=== PATIENT | male | born 1955 | race African-American/Black ===

== ENCOUNTER 2020-09-16 16:04 | Inpatient (IN) | payer BC, SELFPAY ==
--- NOTE | ~2020-09-16 | XR_ITS ---
EXAMINATION: XR foot RT min 3V DATE: 09/16/2020 19:12 INDICATION: Cellulitis with wound at the right fifth metatarsophalangeal joint. TECHNIQUE: Dorsoplantar, two oblique and lateral views of the right foot were obtained. COMPARISON: None. FINDINGS: Bone alignment is normal. No fracture. Mild to moderate osteoarthritis at the right first metatarsoph alangeal joint. Mild osteoarthritis at a few of the tarsal metatarsal and interphalangeal joints. No cortical erosions or periosteal reaction to suggest osteomyelitis. No radiopaque foreign bodies. Soft tissue swelling lateral to the fifth metatarsophalangeal joint at the site of reported cellulitis. IMPRESSION: 1. No cortical erosions to suggest osteomyelitis. 2. 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 Reviewed, dictated and finalized at [facility]. IONS CLERK IMPRESSION: 1. No cortical erosions to suggest osteomyelitis. 2. 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
--- NOTE | ~2020-09-16 | MR_ITS ---
EXAMINATION: MR foot RT wo con DATE: 09/23/2020 12:01 INDICATION: Right foot osteomyelitis. TECHNIQUE: Magnetic resonance imaging (MRI) of the right foot was performed without intravenous contr ast. Sequences included sagittal STIR FSE and T1-weighted FSE and short-axis and long-axis T1-weighte d FSE and T2-weighted FS FSE. COMPARISON: Right foot radiographs 09/16/2020 FINDINGS: There are changes of recent amputation at the base of fifth metatarsal. No fracture. There is no bone marrow edema to suggest osteomyelitis. There is mild osteoarthritis of first tarsometatars al joint and some of the interphalangeal joints. There is moderate osteoarthritis of first metatarsop halangeal joint. Lisfranc ligament is intact. There is mild fatty atrophy of much of the musculature. There is increased T2-weighted signal intensity throughout the musculature, consistent with subacute denervation. There is mild tenosynovitis of flexor digitorum longus. Dorsal subcutaneous edema is no mahsa. IMPRESSION: 1. No evidence of osteomyelitis. Reviewed, dictated and finalized at location A. BOX OPERATOR
--- NOTE | ~2020-09-16 | XR_ITS ---
EXAMINATION: XR chest PICC line DATE: 09/25/2020 14:55 INDICATION: Central line placement. TECHNIQUE: A single frontal view of the chest was obtained. COMPARISON: None. FINDINGS: There are airspace opacities in right lower lung zone. No pleural effusion or pneumothorax. The heart size is normal. A left upper extremity peripherally inserted central venous catheter (PICC ) is seen with tip at the superior cavoatrial junction. IMPRESSION: 1. PICC tip at superior cavoatrial junction. 2. Airspace opacities in right lower lung zone, consistent with pneumonia. Reviewed, dictated and finalized at location A. KER SOLES
--- NOTE | ~2020-09-16 | US_ITS ---
EXAMINATION: US arterial ankle brachial ind DATE: 09/24/2020 17:09 INDICATION: Arterial occlusive disease. TECHNIQUE: Segmental pressures and plethysmographic and Doppler waveforms of the brachial and lower e xtremity arteries were obtained. COMPARISON: None. FINDINGS: Right and left brachial artery pressures of 135 mm Hg and 146 mm Hg, respectively, are concordant (no rmal difference <= 30 mmHg). The right ankle-brachial index (LYNNE) is 1.01 (normal >= 0.9-1.0). The right great toe-brachial index (TBI) is 0.68 (normal >= 0.65). Arterial Doppler waveforms are biphasic at the ankle. The left LYNNE is 0.98. The left TBI is 0.68. Arterial Doppler waveforms are biphasic at the ankle. IMPRESSION: 1. No significant arterial occlusive disease. Reviewed, dictated and finalized at location A. IC HEALTH NURSE
[2020-09-16 16:26] VITALS: BP 137/72; PULSE 118; RESP 18; TEMP 36.6; O2SAT 98
--- NOTE | 2020-09-16 18:54 | ED.WOUNDLAC ---
HPI - Wound/Laceration General Chief Complaint: Wound/Laceration Stated Complaint: Right Foot/Ankle Wound Time Seen by Provider: 09/16/20 18:32 History of Present Illness HPI narrative: Patient is a 65-year-old male who presents ER with right foot wound. Reports he noticed a callus and skin defect to the right foot 4 days ago he began to pick at it. The next day it began to become red and swollen. He has been unable to bear weight on it due to pain. No fevers or chills or sweats. Reports increased fatigue and decreased appetite states not been eating over the last 2 to 3 days. No body aches. Denies history of diabetes but he does not have a primary care physician so he does not have any formal diagnoses. No alleviating factors other than rest. Related Data Home Medications Medication Instructions Recorded Confirmed No Home Medications 09/16/20 09/16/20 Allergies Allergy/AdvReac Type Severity Reaction Status Date / Time No Known Allergies Allergy Verified 09/16/20 16:31 Review of Systems Review of Systems: All systems reviewed & are unremarkable except as noted in HPI and below Constitutional: Constitutional: Denies chills, Denies fever(s) and Reports weakness ENT: Denies nasal congestion and Denies sore throat Cardiovascular: Cardiovascular: Denies chest pain and Denies radiating jaw, neck or arm pain Respiratory: Respiratory: Denies cough, Denies dyspnea and Denies wheezing Musculoskeletal: Musculoskeletal: Reports arthralgias Comments: Right foot swelling Integumentary/Breasts: Skin/Breast: Reports erythema PMFSH Past Medical History Medical History No significant past medical history Surgical History Surgical History No history of previous surgery Social History Social History Smoking status: Never smoker Alcohol intake: never Substance use: never Substance use type: does not use Occupation/Education: occupation 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 HEAD: Normocephalic, atraumatic. ENT: Mucous membranes moist. CHEST: Clear to auscultation. No respiratory distress. HEART: Tachycardic and regular. Normal peripheral pulses. ABDOMEN: Soft, nontender, nondistended. EXTREMITIES: Normal range of motion. Right foot with some mild edema when compared to the left. The right foot is also cellulitic and warm. There is a wound that appears to have started with a callus at the right fifth MTP plantar aspect extending over the lateral aspect. The fifth digit is also swollen. No real tenderness with palpation of the foot but has tenderness as you begin to palpate towards the ankle and leg. SKIN: Warm, dry, no rash. Cellulitis right foot. NEURO: Alert and oriented x3. PSYCH: Normal mood and affect. Course Course Emergency Course: Patient informed of results and seriousness of condition. IV antibiotics been ordered. He is received a 30 mL/kg bolus. Admit to hospitalist service. Vital Signs Vital signs: Vital Signs Temperature 97.8 F 09/16/20 16:26 Pulse Rate 118 H 09/16/20 16:26 Respiratory Rate 18 09/16/20 16:26 Blood Pressure 137/72 09/16/20 16:26 Pulse Oximetry 98 09/16/20 16:26 Temperature 98.8 F 09/16/20 23:50 Pulse Rate 102 H 09/17/20 00:00 Respiratory Rate 20 09/17/20 00:00 Blood Pressure 167/95 H 09/16/20 22:30 Pulse Oximetry 99 09/17/20 00:00 MDM - Wound/Laceration Lab Data Result diagrams: 09/16/20 18:47 09/16/20 18:47 Labs: Lab Results 09/16/20 09/16/20 09/16/20 Range/Uni
[2020-09-16 18:55] LABS: Basophils Absolute Auto 0.1 K/mm3 (0.0-0.1); Basophils Percent Auto 0.3 % (0.2-1.2); Eosinophils Percent Auto 0.1 % (0-4.4); Hematocrit 38.1 % (42.0-52.0); Hemoglobin 12.9 g/dL (14.0-18.0); Immature Granulocyte Absolute 0.28 K/mm3 (0.00-0.031); Immature Granulocyte Percent A 1.4 % (0-0.5); Lymphocytes Absolute Auto 0.74 K/mm3 (0.9-3.2); Lymphocytes Percent Auto 3.8 % (18.3-44.2); Mean Corpuscular HGB Conc 33.9 g/dl (32-36); Mean Corpuscular Hemoglobin 27.9 pg (26-34); Mean Corpuscular Volume 82.5 fl (80-100); Mean Platelet Volume 10.1 fl (7.4-10.4); Monocytes Absolute Auto 1.6 K/mm3 (0.1-0.6); Monocytes Percent Auto 8.3 % (2.6-8.5); Neutrophils Absolute Auto 16.9 K/mm3 (1.3-6.7); Neutrophils Percent Auto 86.1 % (45.5-73.1); Platelet Count Result 359 k/mm3 (150-375); Red Blood Count 4.62 M/mm3 (4.6-6.20); White Blood Count 19.6 K/mm3 (4.5-10.0)
[2020-09-16] MEDS: SODIUM CHLORIDE 0.9% IV 2,200 ML/1,000 ML BAG 999 ML IV CONT (19:10)
[2020-09-16 19:11] LABS: Alanine Aminotransferase 16 U/L (4-50); Albumin Level 3.7 g/dL (3.5-5.1); Alkaline Phosphatase 184 U/L (38-126); Anion Gap 12 mmol/L (8-16); Aspartate Amino Transferase 20 U/L (17-59); Bilirubin,Total 0.7 mg/dL (0.2-1.3); Blood Urea Nitrogen 27 mg/dL (9-20); Calcium 9.1 mg/dL (8.4-10.2); Carbon Dioxide 30 mmol/L (22-30); Chloride 89 mmol/L (98-107); Estimated CRCL calculation 49 ml/min; Estimated Glomerular Filt Rate > 60; Potassium 4.2 mmol/L (3.4-5.0); Sodium 131 mmol/L (137-145)
[2020-09-16 19:19] LABS: INR 1.2; Prothrombin Time 15.4 Seconds (11.1-14.7)
[2020-09-16 19:20] LABS: Partial Thromboplastin Time 43.3 SECONDS (22.3-36.8)
[2020-09-16 19:25] LABS: CRP > 27.0 mg/dL (<1.0); Glucose 756 mg/dL (75-110)
[2020-09-16] MEDS: SODIUM CHLORIDE 0.9% IV 1,000 ML 999 ML (20:03)
[2020-09-16 20:18] LABS: Lactic Acid Reflex 1.6 mmol/L (0.7-2.1)
[2020-09-16 20:30] LABS: Glucose Point of Care > 500 (65-105)
[2020-09-16 20:34] LABS: Add Urine Microscopic? YES; Appearance Urine Clear (Clear); Bilirubin Urine Negative (Negative); Blood Urine Negative (Negative); Color Urine Straw (Yellow); Glucose Urine UA 3+ mg/dL (Negative); Ketones Urine Trace mg/dL (Negative); Leukocyte Esterase Ur Negative LEU/UL (Negative); Nitrate Urine Negative (Negative); Protein Urine 1+ mg/dL (Negative); RBC Urine 0-2 /hpf (0-2); Specific Grav Ur 1.025 (1.001-1.035); Urobilinogen Urine Negative mg/dL (<2.0)
[2020-09-16] MEDS: INSULIN HUMAN REGULAR (*BKC) 100 UNITS/ML 7 UNITS IV PUSH (21:23)
[2020-09-16 21:25] VITALS: BP 132/68; PULSE 78; RESP 18; O2SAT 99
[2020-09-16 22:10] LABS: Glucose Point of Care > 500 (65-105)
[2020-09-16 22:30] VITALS: BP 167/95; PULSE 110; RESP 20; TEMP 38.1; O2SAT 99; BMI 23.3
[2020-09-16 22:52] VITALS: TEMP 37.9
[2020-09-16] MEDS: ACETAMINOPHEN 325 MG TABLET 650 MG PO (22:52)
[2020-09-16] MEDS: SODIUM CHLORIDE 0.9% IV 1,000 ML 125 ML IV CONT (22:52)
[2020-09-16 23:00] LABS: Glucose Point of Care 457 (65-105)
[2020-09-16 23:50] VITALS: TEMP 37.1
[2020-09-17] VITALS (13 sets, daily range): BP systolic 130–161; BP diastolic 77–93; PULSE 86–109; RESP 13–20; TEMP 37–38.2; O2SAT 95–99
[2020-09-17 00:14] LABS: Glucose Point of Care 444 (65-105)
--- NOTE | 2020-09-17 00:35 | ADMGEN ---
This patient, John Mendoza, was admitted to IMU Room 200-01. Patient/family oriented to hospital policies and general routines including ID bracelet, bed and alarms, visiting hours, pain management, procedures, bathroom and other care routines, personal items, smoking policy, room service/diet, and visiting hours. Information on how to activate the Rapid Response Team has been discussed. Patient/Family are encouraged to report perceived risks to care and to ask questions if they do not understand what they are told or what they should do.
[2020-09-17] MEDS: INSULIN ASPART (*BKC) 100 UNITS/ML 8 UNITS SUB-Q (01:04)
--- NOTE | 2020-09-17 01:06 | PM.IMHP ---
H&P: HPI History of Present Illness Date/Time: 09/17/20 01:07 Chief complaint: cellulitis, hyperglycemia Narrative: This is a pleasant 65-year-old male who presented to the hospital with a complaint of right foot swelling and redness that has been ongoing for the past 3 weeks. He remarks that over the past 4 days as worsened and he started to pick at the lateral aspect of his foot until it opened. Over the past couple of days it has become more swollen and painful to ambulate on. Associated symptoms include nausea. He denies any recent fevers, chills, chest pain, shortness of breath, dizziness, cough, abdominal pain, vomiting, dysuria, hematuria, rectal bleeding, or diarrhea. He also reports having increased urine output over the past couple of weeks. The patient was evaluated emergency room this evening an elevated blood glucose of 756. He was treated with 7 units of insulin IV push which has lowered his blood glucose down to 444 mg/dl. The patient has no previous history of being diabetic and tells me he has not seen a doctor for many years. He was found to be septic in the ER tonight with a fever, tachycardia, leukocytosis of 19,600. he also was found to be in acute renal failure. The patient was treated with vancomycin as well as imipenem for his diabetic cellulitis. On my encounter with the patient he has no other specific complaints at this time. 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 Meds Home Medications and Allergies Home Medications Medication Instructions Recorded Confirmed Type No Home Medications 09/16/20 09/16/20 History Allergies Allergy/AdvReac Type Severity Reaction Status Date / Time No Known Allergies Allergy Verified 09/16/20 16:31 Vital Signs Vital Signs - 24 hr 09/16/20 16:26 09/16/20 21:25 09/16/20 22:30 Temperature 36.6 C 38.1 C H Pulse Rate 118 H 78 110 H Respiratory Rate 18 18 20 Blood Pressure 137/72 132/68 167/95 H Pulse Oximetry 98 99 99 09/16/20 22:52 09/17/20 00:00 Temperature 37.9 C H Pulse Rate 102 H Respiratory Rate 20 Blood Pressure Pulse Oximetry 99 Exam Const: General: cooperative, alert and awake Nutritional Appearance: well nourished Orientation/consciousness: patient oriented x3 HENMT: Head: normal to inspection General nose exam: Normal external nose present Face and sinus: normal facial exam Mouth: Yes Normal oral and palatal mucosa present and Yes oropharynx normal Eyes: Pupils: Equal, round and reactive pupils present EOM: EOMs intact bilaterally Neck: Neck: supple and no JVD Thyroid: thyroid normal Lymphatic: lymphadenopathy not noted Resp: Effort & Inspection: normal respiratory effort Auscultation: clear to auscultation bilaterally Cardio: Rate: tachycardic Rhythm: regular rhythm Heart sounds: no murmurs GI: Inspection: normal to inspection Auscultation: normal bowel sounds Skin: General skin exam: erythema (mild erythema of right foot+ ) Neuro: General: patient oriented x3 Cranial nerves: Yes CN's II-XII intact bilaterally and Yes Equal, round and r
[2020-09-17 05:28] LABS: Basophils Percent Auto 0.2 % (0.2-1.2); Eosinophils Percent Auto 0.2 % (0-4.4); Hematocrit 30.8 % (42.0-52.0); Hemoglobin 10.5 g/dL (14.0-18.0); Immature Granulocyte Absolute 0.25 K/mm3 (0.00-0.031); Immature Granulocyte Percent A 1.4 % (0-0.5); Lymphocytes Absolute Auto 1.44 K/mm3 (0.9-3.2); Lymphocytes Percent Auto 7.9 % (18.3-44.2); Mean Corpuscular HGB Conc 34.1 g/dl (32-36); Mean Corpuscular Hemoglobin 27.5 pg (26-34); Mean Corpuscular Volume 80.6 fl (80-100); Monocytes Absolute Auto 1.7 K/mm3 (0.1-0.6); Monocytes Percent Auto 9.6 % (2.6-8.5); Neutrophils Absolute Auto 14.6 K/mm3 (1.3-6.7); Neutrophils Percent Auto 80.7 % (45.5-73.1); Platelet Count Result 355 k/mm3 (150-375); Red Blood Count 3.82 M/mm3 (4.6-6.20); Red Cell Distribution Width 11.9 % (11.5-14.5); White Blood Count 18.2 K/mm3 (4.5-10.0)
[2020-09-17 05:49] LABS: Anion Gap 2 mmol/L (8-16); Blood Urea Nitrogen 20 mg/dL (9-20); Carbon Dioxide 32 mmol/L (22-30); Chloride 103 mmol/L (98-107); Estimated CRCL calculation 67 ml/min; Estimated Glomerular Filt Rate > 60; Glucose 307 mg/dL (75-110); Potassium 3.9 mmol/L (3.4-5.0); Sodium 137 mmol/L (137-145)
[2020-09-17 05:58] LABS: Hemoglobin A1C 12.2 % (<5.7)
[2020-09-17] MEDS: SODIUM CHLORIDE 0.9% IV 1,000 ML 125 ML IV CONT (05:58)
[2020-09-17] MEDS: ONDANSETRON INJ 4 MG/2 ML VIAL IV PUSH (08:47)
[2020-09-17] MEDS: ENOXAPARIN 40 MG/0.4 ML SYRINGE SUB-Q (08:49)
[2020-09-17] MEDS: INSULIN ASPART (*BKC) 100 UNITS/ML SUB-Q ×3 (09:06→18:12)
[2020-09-17 09:14] LABS: Glucose Point of Care 256 (65-105)
[2020-09-17 11:52] LABS: Glucose Point of Care 298 (65-105)
--- NOTE | 2020-09-17 13:35 | PM.CNOR ---
Assessment and Plan Assessment and plan (1) Diabetic foot ulcer: Qualifiers: Diabetic foot ulcer location: toe Diabetes mellitus type: type 2 Laterality: right Non-pressure ulcer stage: with necrosis of muscle Qualified Code(s): E11.621 - Type 2 diabetes mellitus with foot ulcer; L97.513 - Non-pressure chronic ulcer of other part of right foot with necrosis of muscle Code(s): E11.621 - Type 2 diabetes mellitus with foot ulcer; L97.509 - Non-pressure chronic ulcer of other part of unspecified foot with unspecified severity Status: Acute Assessment and Plan: History, exam and radiographs reviewed with the patient. Radiographs of the right foot reveals no cortical erosions to suggest osteomyelitis. On exam, ulcer over the 5th metatarsal measures 10x5.0x0 cm with area of necrosis measuring 3x2.0x0 cm. Remaining ulcer 100% red/pink wound bed. Purulent drainage noted, culture obtained. 5th ray with dusky appearance. Palpable pedal pulses. Surrounding tissue with redness, warmth, swelling. Pain over the lateral forefoot noted. Discussed nonoperative and operative treatment options with the patient. The patients questions were answered. The patient desires operative treatment. Risks of surgery including but not limited to neurovascular damage, wound complications, blood clot, pulmonary embolus, stroke, myocardial infarction, anesthetic risks up to and including were reviewed. Continued pain and possible dysfunction were explained. No guarantees were offered. The patient understands and wishes to proceed. Plan: I&D right DFU with possible 5th ray amputation pending medical clearance and further evaluation by Dr. Sainz. In the interim, continue daily dressing changes, PWB on heel with post op shoe. Pain control, IV antibiotics, Medical Clearance, Diabetic control per medicine team. (2) Diabetes mellitus, new onset: Code(s): E11.9 - Type 2 diabetes mellitus without complications Status: Acute Assessment and Plan: HgB A1C 12.2. Will need close diabetic control, diabetic education and outpatient follow up. Risk for poor wound healing due to uncontrolled DM. (3) Cellulitis in diabetic foot: Code(s): E11.628 - Type 2 diabetes mellitus with other skin complications; L03.119 - Cellulitis of unspecified part of limb Status: Acute Assessment and Plan: Continue IV antibiotics in the interim under the direction of Hospitalist team. (4) Acute renal failure: Qualifiers: Acute renal failure type: unspecified Qualified Code(s): N17.9 - Acute kidney failure, unspecified Code(s): N17.9 - Acute kidney failure, unspecified Status: Acute Assessment and Plan: Will need medical clearance prior to surgical intervention/debridement. History of Present Illness HPI Consult date: 09/17/20 Requesting physician: Judith Valdivia MD Consult reason: other (Right DFU ) Chief complaint: cellulitis, hyperglycemia Narrative: 65 year old male with a history of a right lateral forefoot ulcer over the 5th metatarsal which began approximately 3-4 days ago. Patient reports having first noticed a callus on the more plantar aspect of the 5th metatarsal which he picked at . He then noticed increased redness, warmth, swelling and pain accompanied by nausea which prompted his arrival to the ED. He denies a history of previous surgical intervention and does not see a PCP. He was found to have diabetes in the ER with a blood glucose level of >500. His HgB A1C was 12.2. WBC elevated as well. He has not had any previous treatment or medical history. He was admitted for RLE cellulitis and DFU. Orthopedic consult requested by hospitalist service, Dr. Valdivia. Review of Systems Constitutional: Constitutional: Reports no additional constitutional complaints, Denies chills, Denies fatigue, Denies fever(s), Denies headache(s) and Denies weakness Eyes: Eyes: Denies change in vision ENT:
--- NOTE | 2020-09-17 13:38 | PM.IMPN ---
Progress Note: A&P Assessment and Plan (1) Cellulitis: Qualifiers: Site of cellulitis: extremity Site of cellulitis of extremity: lower extremity Laterality: right Qualified Code(s): L03.115 - Cellulitis of right lower limb Code(s): L03.90 - Cellulitis, unspecified Status: Acute Assessment and Plan: Wound care consulted, orthopedics consulted. Continue IV antibiotics for diabetic cellulitis. await Bc, pain control (2) New onset type 1 diabetes mellitus, uncontrolled: Code(s): E10.65 - Type 1 diabetes mellitus with hyperglycemia Status: Acute Assessment and Plan: New onset diabetes mellitus w/ hyperglycemia. Accuchecks, SSI coverage, hypoglycemic protocol. Check HgbA1c. DM educator (3) Sepsis: Qualifiers: Sepsis type: sepsis due to unspecified organism Sepsis acute organ dysfunction status: with acute organ dysfunction Severe sepsis acute organ dysfunction type: acute renal failure Acute renal failure type: unspecified Severe sepsis shock status: without septic shock Qualified Code(s): A41.9 - Sepsis, unspecified organism; R65.20 - Severe sepsis without septic shock; N17.9 - Acute kidney failure, unspecified Code(s): A41.9 - Sepsis, unspecified organism Status: Acute Assessment and Plan: w/ fever, tachycardia and leukocytosis. Lactic acid Normal. Continue iv primaxin and iv vancomycin. (4) Acute renal failure: Qualifiers: Acute renal failure type: unspecified Qualified Code(s): N17.9 - Acute kidney failure, unspecified Code(s): N17.9 - Acute kidney failure, unspecified Status: Acute Assessment and Plan: monitor bmp continue iv fluids watch UO. (5) Normocytic anemia: Code(s): D64.9 - Anemia, unspecified Status: Acute Assessment and Plan: acute vs. chronic? No signs of acute blood loss. (6) Dehydration: Code(s): E86.0 - Dehydration Status: Acute Assessment and Plan: Continue IV hydration overnight. Monitor urine output. Subjective Date/time seen: 09/17/20 13:38 Interval history: 65-year-old male who presented to the hospital with a complaint of right foot swelling and redness that has been ongoing for the past 3 weeks. Pt wound looks, dry, intact but is painful and shallow. Pt may benefit from debridement. Meanwhile treat for sepsis [place] [id number], creat is 1.0. Newly diagnosed DM. Review of Systems Review of Systems: All systems reviewed & are unremarkable except as noted in HPI and below Exam Const: General: cooperative, alert and awake Nutritional Appearance: well nourished Orientation/consciousness: patient oriented x3 Resp: Effort & Inspection: normal respiratory effort Auscultation: clear to auscultation bilaterally Cardio: Rhythm: regular rhythm Heart sounds: no murmurs GI: Inspection: normal to inspection Auscultation: normal bowel sounds Skin: General skin exam: erythema (mild erythema of right foot+ ) Neuro: General: patient oriented x3 Cranial nerves: Yes CN's II-XII intact bilaterally and Yes Equal, round and reactive pupils present Speech: normal speech Motor exam (neuro): 5/5 motor strength present throughout Sensory Exam: normal sensation Extrem: General: normal to inspection Psych: Mental Status: mental status grossly normal Affect: normal affect Objective Data Vital Signs Vital Signs: Vital Signs - 24 hr 09/16/20 16:26 09/16/20 21:25 09/16/20 22:30 Temperature 36.6 C 38.1 C H Pulse Rate 118 H 78 110 H Respiratory Rate 18 18 20 Blood Pressure 137/72 132/68 167/95 H Pulse Oximetry 98 99 99 09/16/20 22:52 09/16/20 23:50 09/17/20 00:00 Temperature 37.9 C H 37.1 C Pulse Rate 102 H Respiratory Rate 20 Blood Pressure Pulse Oximetry 99 09/17/20 02:00 09/17/20 04:00 09/17/20 06:00 Temperature 37.3 C Pulse Rate 86 92 86 Respiratory Rate 20 Blood Pressu
[2020-09-17 16:52] LABS: Glucose Point of Care 212 (65-105)
[2020-09-17 20:06] LABS: Glucose Point of Care 203 (65-105)
[2020-09-17] MEDS: ACETAMINOPHEN 325 MG TABLET 650 MG PO (20:08)
[2020-09-18] VITALS (12 sets, daily range): BP systolic 115–168; BP diastolic 78–87; PULSE 89–107; RESP 16–92; TEMP 36.1–37.8; O2SAT 92–100; BMI 23.6
--- NOTE | 2020-09-18 05:58 | PC.NURSE ---
This patient, John Mendoza, was transferred to [ [id number]] on 09/18/20 at 0558. Personal belongings sent with patient. Report given to [Rosa subramanian ]. Appropriate documentation sent with patient.
--- NOTE | 2020-09-18 06:10 | PC.NURSE ---
This patient, John Mendoza, was received from [facility] on 09/18/20 at 0610. Patient/family oriented to unit policies and routines
--- NOTE | 2020-09-18 07:00 | PC.NURSE ---
To OR per bed.
--- NOTE | 2020-09-18 07:03 | WPDANESEPPF ---
Anes - Initial Pre Proc Eval Procedure: Operation Date: 09/18/20 07:30 Proposed Procedures p Incision and Drainage Right Diabetic Foot Ulcer, - Denys Sainz MD s Possible Fifth Ray Amputation - Denys Sainz MD Date/Time: 09/18/20 07:03 Surgeon: Som Harris MD Pre Op Diagnosis: cellulitis, hyperglycemia Patient Data Age: 65 Gender: M Height: 1.75 m Weight: 72.6 kg Last Vital Signs Temp 37.8 C H 09/18/20 06:17 Pulse 99 09/18/20 06:17 Resp 20 09/18/20 06:17 BP 147/81 H 09/18/20 06:17 Pulse Ox 95 09/18/20 06:17 Allergies Allergy/AdvReac Type Severity Reaction Status Date / Time No Known Allergies Allergy Verified 09/16/20 16:31 Home Medications Medication Instructions Recorded Confirmed Type No Home Medications 09/16/20 09/16/20 History Laboratory Tests 09/17/20 09/17/20 09/17/20 04:39 08:30 11:48 WBC 18.2 K/mm3 H K/mm3 (4.5-10.0) RBC 3.82 M/mm3 L M/mm3 (4.6-6.20) Hgb 10.5 g/dL L g/dL (14.0-18.0) Hct 30.8 % L % (42.0-52.0) MCV 80.6 fl fl (80-100) MCH 27.5 pg pg (26-34) MCHC 34.1 g/dl g/dl (32-36) RDW 11.9 % % (11.5-14.5) Plt Count 355 k/mm3 k/mm3 (150-375) MPV 10.0 fl fl (7.4-10.4) Immature Gran % (Auto) 1.4 % H % (0-0.5) Neut % (Auto) 80.7 % H % (45.5-73.1) Lymph % (Auto) 7.9 % L % (18.3-44.2) Hardin % (Auto) 9.6 % H % (2.6-8.5) Eos % (Auto) 0.2 % % (0-4.4) Baso % (Auto) 0.2 % % (0.2-1.2) Lymph # (Auto) 1.44 K/mm3 K/mm3 (0.9-3.2) Hardin # (Auto) 1.7 K/mm3 H K/mm3 (0.1-0.6) Eos # (Auto) 0.0 K/mm3 K/mm3 (0-0.3) Baso # (Auto) 0.0 K/mm3 K/mm3 (0.0-0.1) Abs Immat Gran (auto) 0.25 K/mm3 H K/mm3 (0.00-0.031) Absolute Neuts (auto) 14.6 K/mm3 H K/mm3 (1.3-6.7) Absolute Nucleated RBC 0.0 K/mm3 K/mm3 (0.0-0.012) Nucleated RBC % 0.0 % % (0.0-0.2) POC Capillary Glucose 256 mg/dl H mg/dl 298 mg/dl H mg/dl (65-105) (65-105) 09/17/20 09/17/20 16:23 19:44 WBC RBC Hgb Hct MCV MCH MCHC RDW Plt Count MPV Immature Gran % (Auto) Neut % (Auto) Lymph % (Auto) Hardin % (Auto) Eos % (Auto) Baso % (Auto) Lymph # (Auto) Hardin # (Auto) Eos # (Auto) Baso # (Auto) Abs Immat Gran (auto) Absolute Neuts (auto) Absolute Nucleated RBC Nucleated RBC % POC Capillary Glucose 212 mg/dl H mg/dl 203 mg/dl H mg/dl (65-105) (65-105) Patient hx anesthesia problems: none Family hx anesthesia problems: none [facility] Past Medical History Medical History (Updated 09/17/20 @ 14:07 by SANJEEV Justice) Diabetic foot ulcer No significant past medical history Surgical History Surgical History No history of previous surgery Social History Social History (Updated 09/17/20 @ 13:46 by SANJEEV Justice) Social History: 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 He lives with his . They have 4 adult children and 8 grandchildren. 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
--- NOTE | 2020-09-18 07:05 | WPDHPUPDATE1 ---
History and Physical Update Update Date/Time: 09/18/20 07:05 History and Physical has been reviewed, including an updated exam of the patient. There are NO changes in the patient's condition. Risks, benefits, and alternatives have been discussed and questions answered. Patient agrees to proceed with procedure.
[2020-09-18 07:21] LABS: Glucose Point of Care 261 (65-105)
--- NOTE | 2020-09-18 07:22 | PM.PROC ---
Procedure Note - Detailed Date of procedure: 09/18/20 Pre-op diagnosis: cellulitis, hyperglycemia Right diabetic foot ulcer Post-op diagnosis: same Procedure performed: right diabetic foot ulcer, 5th metatarsal osteomyelitis Description of procedure: Indications: Patient is a 65-year-old gentleman with newly diagnosed uncontrolled insulin-dependent diabetes. Presented with 3 week history of right diabetic foot ulcer worsening over the past week. Ulcer involves the plantar lateral aspect of the 5th metatarsal head. Ulcers nonhealing. Patient presents for operative treatment. What was done: Patient identified in the preoperative holding. Informed consent given. Operative extremity marked. Patient received intravenous antibiotics. Patient brought to the operating room where underwent general anesthetic by anesthesia team. Positioned supine on operating room table. Time-out performed confirming the patient, site of the surgery and the plan. Right foot prepped draped usual sterile surgical fashion using Betadine prep solution. Esmarch tourniquet used at the ankle. The subcutaneous tissue involved in the ulcer over the plantar lateral aspect of the 5th metatarsal head was incised. There was noted to be infected tissue and purulence down to the 5th metatarsal head. Soft tissue defect quite extensive and salvage of the 5th toe not felt to be possible. In addition, loss of arterial blood flow to the small toe as evidenced by skin color changes of the toe. Decision made for 5th ray amputation. Longitudinal incision carried from the ulcer proximally along the dorsal lateral aspect of 5th metatarsal with 15 blade knife. Hemostasis controlled electrocautery. Fifth metatarsal and toe were shelled out of the soft tissue leaving the infected and nonviable tissue with the toe. Osteotomy performed of the midportion of the 5th metatarsal the 5th ray was removed. Any nonviable or necrotic tissue also debrided. Wound thoroughly irrigated antibiotic solution. Skin then closed loosely with0 Prolene. distal extent of the wound unable to be closed. Sterile dressing applied. The patient was then woken from anesthesia, extubated and taken to the recovery room in stable condition. All sponge, needle, instrument counts were correct at the end of the case. Anesthesia: GLMA Surgeon: Denys Sainz MD Air Sealing Technician: 1st psychiatric assistant Estimated blood loss (mL): 2 Tourniquet time (min): 25 Drains: No Packing: Yes Pathology: yes ( tissues sample with culture) Complications: None Condition: stable Disposition: PACU Findings: 4 x 4.5 cm ulcer over the plantar lateral aspect 5th metatarsal. Ulcer extends to bone and 5th metatarsophalangeal joint. Involvement of the distal 5th metatarsal with infection noted. Dusky skin color changes of the small toe consistent with necrosis. necrotic tissue extending the dorsum of the foot to the mid 5th metatarsal and plantar foot to the 4th metatarsal without 4th metatarsal involvement.
[2020-09-18] MEDS: LACTATED RINGERS 1,000 ML 30 ML IV CONT (07:24)
--- NOTE | 2020-09-18 07:41 | SUR.PREOP ---
no medication ordered by anesthesia for elevated blood sugar. Per patient ring left in room.
[2020-09-18] MEDS: BUPIVACAINE HCL 0.5% PF 30 ML VIAL INFILTRATE (08:03)
--- NOTE | 2020-09-18 08:08 | SUR.OPER ---
culture given to gael in lab by adriel anders
[2020-09-18 08:21] LABS: Glucose Point of Care 237 (65-105)
--- NOTE | 2020-09-18 08:35 | SUR.PHASEI ---
0835 - dr. swann aware of pt's accucheck of 237. no orders received at this time.
--- NOTE | 2020-09-18 08:53 | PCDIET ---
MD consult received. Patient currently NPO for surgery. Will offer education when appropriate.
--- NOTE | 2020-09-18 09:35 | PC.NURSE ---
Returned from OR per bed. Report received from Tatiana.
[2020-09-18] MEDS: DOCUSATE SODIUM 100 MG CAPSULE PO (09:42)
[2020-09-18] MEDS: INSULIN ASPART (*BKC) 100 UNITS/ML SUB-Q ×3 (09:53→17:19)
[2020-09-18 09:54] LABS: Glucose Point of Care 329 (65-105)
[2020-09-18 12:34] LABS: Hematocrit 30.8 % (42.0-52.0); Hemoglobin 10.6 g/dL (14.0-18.0); Mean Corpuscular HGB Conc 34.4 g/dl (32-36); Mean Corpuscular Hemoglobin 27.9 pg (26-34); Mean Corpuscular Volume 81.1 fl (80-100); Mean Platelet Volume 9.5 fl (7.4-10.4); Platelet Count Result 343 k/mm3 (150-375); Red Cell Distribution Width 11.9 % (11.5-14.5); White Blood Count 17.6 K/mm3 (4.5-10.0)
--- NOTE | 2020-09-18 12:38 | PM.IMPN ---
Progress Note: A&P Assessment and Plan (1) Cellulitis: Qualifiers: Site of cellulitis: extremity Site of cellulitis of extremity: lower extremity Laterality: right Qualified Code(s): L03.115 - Cellulitis of right lower limb Code(s): L03.90 - Cellulitis, unspecified Status: Acute Assessment and Plan: Continue IV antibiotics for diabetic cellulitis. Pain control (2) New onset type 1 diabetes mellitus, uncontrolled: Code(s): E10.65 - Type 1 diabetes mellitus with hyperglycemia Status: Acute Assessment and Plan: New onset diabetes mellitus w/ hyperglycemia. Accuchecks, SSI coverage, hypoglycemic protocol. Check HgbA1c. DM educator Pt has financial difficulties will need medications on 4 dollar list on dischrage (3) Sepsis: Qualifiers: Sepsis type: sepsis due to unspecified organism Sepsis acute organ dysfunction status: with acute organ dysfunction Severe sepsis acute organ dysfunction type: acute renal failure Acute renal failure type: unspecified Severe sepsis shock status: without septic shock Qualified Code(s): A41.9 - Sepsis, unspecified organism; R65.20 - Severe sepsis without septic shock; N17.9 - Acute kidney failure, unspecified Code(s): A41.9 - Sepsis, unspecified organism Status: Resolved Assessment and Plan: Fluids stopped. Lactic acid Normal. Continue iv primaxin and iv vancomycin. (4) Acute renal failure: Qualifiers: Acute renal failure type: unspecified Qualified Code(s): N17.9 - Acute kidney failure, unspecified Code(s): N17.9 - Acute kidney failure, unspecified Status: Resolved Assessment and Plan: monitor bmp continue (5) Normocytic anemia: Code(s): D64.9 - Anemia, unspecified Status: Acute Assessment and Plan: acute vs. chronic? No signs of acute blood loss. (6) Dehydration: Code(s): E86.0 - Dehydration Status: Resolved Assessment and Plan: REsolved Subjective Date/time seen: 09/18/20 12:38 Interval history: 65-year-old male who presented to the hospital with a complaint of right foot swelling and redness that has been ongoing for the past 3 weeks. Pt wound looks, dry, intact but is painful and shallow. pt is sp debridement diabetic foot ulcer right foot with possible 5th ray amputation. Meanwhile treat for sepsis and Newly diagnosed DM. ARF appears resolved. 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 Review of Systems Review of Systems: All systems reviewed & are unremarkable except as noted in HPI and below Exam Const: General: cooperative, alert and awake Nutritional Appearance: well nourished Orientation/consciousness: patient oriented x3 Eyes: Pupils: Equal, round and reactive pupils present Resp: Effort & Inspection: normal respiratory effort Auscultation: clear to auscultation bilaterally Cardio: Rhythm: regular rhythm Heart sounds: no murmurs GI: Inspection: normal to inspection Auscultation: normal bowel sounds Skin: General skin exam: other (R foot in fresh dressing and MATTEO wrap sensation of toes intact ) Neuro: General: patient oriented x3 Cranial nerves: Yes CN's II-XII intact bilaterally and Yes Equal, round and reactive pupils present Speech: normal speech Motor exam (neuro): 5/5 motor strength present throughout Sensory Exam: normal sensation Extrem: General: normal to inspection Psych: Mental Status: mental status grossly normal Affect: normal affect Objective Data Vital Signs Vital Signs: Vital Signs - 24 hr 09/17/20 14:00 09/17/20 15:11 09/17/20 16:00 Temperature 37.0 C Pulse Rate 98 105 H 100 Respiratory Rate 13 Blood Pressure 161/93 H Pulse Oximetry 98 09/17/20 20:00 09/17/20 20:08 09/17/20 20:22 Temperature 37.9 C H 38.2 C H Pulse Rate 102 H 109 H Respiratory Rate 20 20 Blood Pressure 150/84 H Pulse Oximetry 99 99 09/18/20 03:03 11
[2020-09-18 12:49] LABS: Glucose Point of Care 252 (65-105)
[2020-09-18] MEDS: HYDROcodone/acetaminophen (*CRX) 5-325 MG TABLET 1 TAB PO (12:49)
[2020-09-18 12:51] LABS: Anion Gap 6 mmol/L (8-16); Blood Urea Nitrogen 15 mg/dL (9-20); Carbon Dioxide 27 mmol/L (22-30); Chloride 102 mmol/L (98-107); Estimated CRCL calculation 74 ml/min; Estimated Glomerular Filt Rate > 60; Glucose 270 mg/dL (75-110); Potassium 3.9 mmol/L (3.4-5.0); Sodium 135 mmol/L (137-145)
[2020-09-18 17:11] LABS: Glucose Point of Care 271 (65-105)
[2020-09-18 20:42] LABS: Vancomycin Trough 7.6 ug/mL (10.0-20.0)
[2020-09-18 22:24] LABS: Glucose Point of Care 239 (65-105)
[2020-09-19] VITALS (8 sets, daily range): BP systolic 156–167; BP diastolic 76–91; PULSE 96–108; RESP 16–20; TEMP 36.7–37.3; O2SAT 90–96
[2020-09-19 06:21] LABS: Estimated CRCL calculation 66 ml/min; Estimated Glomerular Filt Rate > 60
[2020-09-19 08:23] LABS: Glucose Point of Care 360 (65-105)
[2020-09-19] MEDS: DOCUSATE SODIUM 100 MG CAPSULE PO (09:16)
[2020-09-19] MEDS: INSULIN ASPART (*BKC) 100 UNITS/ML SUB-Q ×2 (09:17→12:04)
--- NOTE | 2020-09-19 09:57 | PM.IMPN ---
Progress Note: A&P Assessment and Plan (1) Osteomyelitis of ankle or foot, right, acute: Code(s): M86.171 - Other acute osteomyelitis, right ankle and foot Status: Acute Assessment and Plan: -postop day 1 right foot 5th digit ray amputation by Dr. Sainz -Continue IV Primaxin and IV vancomycin for diabetic foot ulcer, awaiting cultures and sensitivities. Unknown margins, pending pathology. Patient will need long-term IV antibiotics, will need PICC line. -pain control: Tylenol, [place] and morphine -nausea: Zofran -bowel regimen: Docusate (2) Sepsis: Qualifiers: Sepsis type: sepsis due to unspecified organism Sepsis acute organ dysfunction status: with acute organ dysfunction Severe sepsis acute organ dysfunction type: acute renal failure Acute renal failure type: unspecified Severe sepsis shock status: without septic shock Qualified Code(s): A41.9 - Sepsis, unspecified organism; R65.20 - Severe sepsis without septic shock; N17.9 - Acute kidney failure, unspecified Code(s): A41.9 - Sepsis, unspecified organism Status: Resolved Assessment and Plan: Sepsis resolved, IV antibiotics for osteomyelitis Continue iv primaxin and iv vancomycin. (3) Acute renal failure: Qualifiers: Acute renal failure type: unspecified Qualified Code(s): N17.9 - Acute kidney failure, unspecified Code(s): N17.9 - Acute kidney failure, unspecified Status: Resolved Assessment and Plan: Resolved (4) Normocytic anemia: Code(s): D64.9 - Anemia, unspecified Status: Acute Assessment and Plan: Chronicity unknown, will watch (5) Dehydration: Code(s): E86.0 - Dehydration Status: Resolved Assessment and Plan: Resolved (6) Type 2 diabetes mellitus: Qualifiers: Diabetes mellitus retirement insulin use: without retirement use Diabetes mellitus complication status: with circulatory complication Code(s): E11.9 - Type 2 diabetes mellitus without complications Status: Acute Assessment and Plan: -Hemoglobin A1c 12.2. -Patient will need to establish care with primary care provider and for diabetes management. 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 Patient is postop day 1 right foot 5th ray amputation by Dr. Sainz. Patient diabetic with no home meds, needs to establish care with a PCP. Will need assistance medication. Painted denies fever, chills, nausea, vomiting, diarrhea, chest pain, lower abdominal pain, numbness tingling. Awaiting cultures and sensitivities. Hemoglobin A1c 12.2. Review of Systems Review of Systems: All systems reviewed & are unremarkable except as noted in HPI and below Exam Narrative: Exam Narrative: - GENERAL: Pleasant male in no acute distress - EYES: EOMI. Anicteric. - HENT: Moist mucous membranes. No scleral icterus. - LUNGS: Clear to auscultation bilaterally, no wheezing, rhonchi, or rales. - CARDIOVASCULAR: Regular rate and rhythm. - ABDOMEN: Soft, non-tender and non-distended. No palpable masses. - EXTREMITIES: No edema. Peripheral pulses 2+. Right lower extremity gauze over wounds, status post 5th digit ray amputation. - NEUROLOGIC: No focal neurological deficits. CN II-XII grossly intact. - PSYCHIATRIC: Awake, Alert and oriented x 3. Appropriate mood and affect. - SKIN: No rashes or lesions. Warm. - LYMPH: No cervical lymphadenopathy. Objective Data Vital Signs Vital Signs: Vital Signs - 24 hr 09/18/20 10:11 09/18/20 11:11 09/18/20 15:11 Temperature 36.4 C 36.2 C L 36.6 C Pulse Rate 94 96 92 Respiratory Rate 20 20 92 H Blood Pressure 168/87 H 162/84 H 158/78 H Pulse Oximetry 97 98 96 09/18/20 20:00 09/19/20 00:00 09/19/20 04:21 Temperature 36.8 C 36.9 C 37.1 C Pulse Rate 107 H 103 H 10
[2020-09-19 12:01] LABS: Glucose Point of Care 282 (65-105)
--- NOTE | 2020-09-19 12:13 | PM.PNORT ---
Progress Note: A&P Additional Plan POD 1 DOING WELL. DRESSING CHANGE TMRW Subjective Subjective Date/Time Seen: 09/19/20 12:1 RIGHT 5TH RAY AMPUTATION POD 1 DOING WELL. NO CALF PAIN Exam Extrem: Other: VSS AFEBRILE DRESSING WITH MINIMAL POSTOP DRAINAGE CALF SOFT NON TENDER NEG HOMANS SIGN Objective Data Vital Signs Vital Signs: Vital Signs - 24 hr 09/18/20 15:11 09/18/20 20:00 09/19/20 00:00 Temperature 36.6 C 36.8 C 36.9 C Pulse Rate 92 107 H 103 H Respiratory Rate 92 H 18 18 Blood Pressure 158/78 H 165/82 H 157/83 H Pulse Oximetry 96 92 93 09/19/20 04:21 09/19/20 08:00 09/19/20 09:10 Temperature 37.1 C 37.3 C Pulse Rate 108 H 100 96 Respiratory Rate 18 20 18 Blood Pressure 165/86 H 158/86 H Pulse Oximetry 90 91 92 Intake/Output Intake/Output: Intake & Output 09/16/20 09/17/20 09/18/20 09/19/20 23:59 23:59 23:59 23:59 Intake Total 4550 3650 1150 590 Output Total 1400 600 575 Balance 4550 2250 550 15 Meds/Results Medications: Active Medications Generic Name Dose Route Start Last Admin Trade Name Freq PRN Reason Stop Dose Admin Acetaminophen 650 mg 09/16/20 20:44 09/17/20 20:08 Acetaminophen 325 Mg Tablet PO 650 mg Q4H PRN Administration Mild Pain (1-3) or Fever Hydrocodone Bitart/Acetaminophen 1 tab 09/16/20 20:44 09/18/20 12:49 Hydrocodone/Acetaminophen (*Crx) 5-325 Mg Tablet PO 1 tab Q4H PRN Administration Pain Rated 4-6 Dextrose 12.5 gm 09/17/20 00:46 Dextrose 50% 25 Gm/50 Ml Syringe IV PUSH PRN PRN Hypoglycemia Protocol Docusate Sodium 100 mg 09/18/20 09:26 09/19/20 09:16 Docusate Sodium 100 Mg Capsule PO 100 mg Q12HR ZELDA Administration Glucagon 1 mg 09/17/20 00:46 Glucagon For Inj 1 Mg Vial IM PRN PRN Hypoglycemia Protocol Glucose 15 gm 09/17/20 00:46 Glucose Oral Gel 15 Gm Of Glucse In 37.5 Gm Tube PO PRN PRN Hypoglycemia Protocol Imipenem/Cilastatin Sodium 500 mg in 100 mls @ 300 mls/hr 09/17/20 06:00 09/19/20 05:35 Primaxin 500 Mg/D5w 100 Ml IVPB Infused Q8HR ZELDA Infusion Dextrose 1,000 mls @ 100 mls/hr 09/17/20 00:46 Dextrose 5% 1,000 Ml IVPB PRN PRN Hypoglycemia Protocol Vancomycin HCl 1,500 mg in 500 mls @ 333.333 mls/hr 09/19/20 06:00 09/19/20 05:52 Vancomycin 1,500 Mg/D5w 500 Ml IVPB 333.33 mls/hr Q12H ZELDA Administration Insulin Aspart 3 - 6 units 09/17/20 08:00 09/19/20 12:04 Insulin Aspart (*Bkc) 100 Units/Ml SUB-Q 4 units TIDWM ZELDA Administration Protocol Magnesium Hydroxide 30 ml 09/18/20 09:26 Magnesium Hydroxide Susp 30 Ml Udc PO BID PRN Constipation Morphine Sulfate 3 mg 09/18/20 09:26 Morphine Sulfate (*Crx) 4 Mg/Ml Inj IV PUSH Q3H PRN Pain Rated 7-10 Ondansetron HCl 4 mg 09/16/20 20:44 09/17/20 08:47 Ondansetron Inj 4 Mg/2 Ml Vial IV PUSH 4 mg Q4H PRN Administration Nausea Radiology Results: ITS Impressions Foot X-Ray 09/16/20 19:29 IMPRESSION: 1. No cortical erosions to suggest osteomyelitis. 2. 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 Labs Labs: Laboratory Results - last 24 hr 09/18/20 09/18/20 09/18/20 12:17 12:17 12:42 WBC 17.6 H RBC 3.80 L Hgb 10.6 L Hct 30.8 L MCV 81.1 MCH 27.9 MCHC 34.4 RDW 11.9 Plt Count 343 MPV 9.5 Sodium 135 L Potassium 3.9 Chloride 102 Carbon Dioxide 27 Anion Gap 6 L BUN 15 D Creatinine 0.90 Estim Creat Clear Calc 74 Estimated GFR > 60 Glucose 270 H POC Capillary Glucose 252 H Calcium 8.0 L Vancomycin Trough 09/18/20 09/18/2020 17:08 19:51 21:41 WBC RBC Hgb Hct MCV MCH MCHC RDW Plt Count MPV Sodium Potassium Chloride Carbon Dioxide Anion Gap BUN
--- NOTE | 2020-09-19 12:40 | WPDANESPN ---
Anes - Prog Note Post-Op Date/Time: 09/19/20 12:40 Cardiovascular status: normal Respiratory status: normal Airway patency: baseline Mental status: baseline Post-Op hydration status: normal Vital Signs: Last Vital Signs Temp 36.7 C 09/19/20 12:00 Pulse 100 09/19/20 12:00 Resp 20 09/19/20 12:00 BP 163/91 H 09/19/20 12:00 Pulse Ox 92 09/19/20 12:00 Pain Score (VAS): 12/04 I/O: Intake & Output 09/18/20 09/19/20 09/19/20 23:59 07:59 15:59 Intake Total 470 350 240 Output Total 350 575 Balance 120 -225 240 Laboratory Tests 09/18/20 12:17 09/19/20 05:17 09/18/20 09/18/20 09/18/20 12:17 12:42 17:08 Sodium 135 L Potassium 3.9 Chloride 102 Carbon Dioxide 27 Anion Gap 6 L BUN 15 D Creatinine 0.90 Estim Creat Clear Calc 74 Estimated GFR > 60 Glucose 270 H POC Capillary Glucose 252 H 271 H Calcium 8.0 L Vancomycin Trough 09/18/20 09/18/20 09/19/20 19:51 21:41 05:17 Sodium Potassium Chloride Carbon Dioxide Anion Gap BUN Creatinine 1.00 Estim Creat Clear Calc 66 Estimated GFR > 60 Glucose POC Capillary Glucose 239 H Calcium Vancomycin Trough 7.6 L 09/19/20 09/19/20 07:52 11:57 Sodium Potassium Chloride Carbon Dioxide Anion Gap BUN Creatinine Estim Creat Clear Calc Estimated GFR Glucose POC Capillary Glucose 360 H 282 H Calcium Vancomycin Trough Microbiology 09/17/20 13:10 Toe Right Fifth Anaerobic Culture - Preliminary 09/17/20 13:10 Toe Right Fifth Aerobic Culture - Preliminary 09/18/20 07:59 Foot Right Anaerobic Culture - Preliminary Post-procedural complaints: none Patient Feedback: Patient satisfied with anesthetic care.
--- NOTE | 2020-09-19 14:01 | PC.NURSE ---
Received ice gel packs from [facility] and placed in freezer. Patient refused placement. ice gel packs back in freezer.
[2020-09-19 17:21] LABS: Glucose Point of Care 199 (65-105)
[2020-09-19 21:20] LABS: Glucose Point of Care 320 (65-105)
[2020-09-19 21:20] LABS: Glucose Point of Care 332 (65-105)
[2020-09-20 06:00] VITALS: BP 155/89; PULSE 97; RESP 18; TEMP 36.7; O2SAT 94
[2020-09-20 06:37] LABS: Hematocrit 30.6 % (42.0-52.0); Hemoglobin 10.5 g/dL (14.0-18.0); Mean Corpuscular HGB Conc 34.3 g/dl (32-36); Mean Corpuscular Hemoglobin 27.2 pg (26-34); Mean Corpuscular Volume 79.3 fl (80-100); Mean Platelet Volume 9.4 fl (7.4-10.4); Platelet Count Result 387 k/mm3 (150-375); Red Blood Count 3.86 M/mm3 (4.6-6.20); Red Cell Distribution Width 11.8 % (11.5-14.5); White Blood Count 19.1 K/mm3 (4.5-10.0)
[2020-09-20 06:54] LABS: Anion Gap 4 mmol/L (8-16); Blood Urea Nitrogen 14 mg/dL (9-20); Calcium 8.1 mg/dL (8.4-10.2); Carbon Dioxide 30 mmol/L (22-30); Chloride 97 mmol/L (98-107); Estimated CRCL calculation 74 ml/min; Estimated Glomerular Filt Rate > 60; Glucose 277 mg/dL (75-110); Potassium 3.6 mmol/L (3.4-5.0); Sodium 131 mmol/L (137-145)
[2020-09-20 07:46] LABS: Glucose Point of Care 378 (65-105)
[2020-09-20] MEDS: INSULIN ASPART (*BKC) 100 UNITS/ML SUB-Q ×2 (08:00→16:39)
[2020-09-20 11:33] LABS: Glucose Point of Care 282 (65-105)
--- NOTE | 2020-09-20 11:46 | PM.IMPN ---
Progress Note: A&P Assessment and Plan (1) Osteomyelitis of ankle or foot, right, acute: Code(s): M86.171 - Other acute osteomyelitis, right ankle and foot Status: Acute Assessment and Plan: -postop day 2 right foot 5th digit ray amputation by Dr. Sainz -Continue IV Primaxin and IV vancomycin for diabetic foot ulcer, awaiting cultures and sensitivities. Unknown margins, pending pathology. Patient will need long-term IV antibiotics, will need PICC line. Plan for IV antibiotics with home health. -consulting infectious disease Dr. peter with worsening leukocytosis despite appropriate antibiotics and for home health IV antibiotics -pain control: Tylenol, [place] and morphine -nausea: Zofran -bowel regimen: Docusate (2) Sepsis: Qualifiers: Sepsis type: sepsis due to unspecified organism Sepsis acute organ dysfunction status: with acute organ dysfunction Severe sepsis acute organ dysfunction type: acute renal failure Acute renal failure type: unspecified Severe sepsis shock status: without septic shock Qualified Code(s): A41.9 - Sepsis, unspecified organism; R65.20 - Severe sepsis without septic shock; N17.9 - Acute kidney failure, unspecified Code(s): A41.9 - Sepsis, unspecified organism Status: Resolved Assessment and Plan: Sepsis resolved, IV antibiotics for osteomyelitis Continue iv primaxin and iv vancomycin. (3) Acute renal failure: Qualifiers: Acute renal failure type: unspecified Qualified Code(s): N17.9 - Acute kidney failure, unspecified Code(s): N17.9 - Acute kidney failure, unspecified Status: Resolved Assessment and Plan: Resolved (4) Normocytic anemia: Code(s): D64.9 - Anemia, unspecified Status: Acute Assessment and Plan: Chronicity unknown, will watch (5) Dehydration: Code(s): E86.0 - Dehydration Status: Resolved Assessment and Plan: Resolved (6) Type 2 diabetes mellitus: Qualifiers: Diabetes mellitus director long term care insulin use: without penitentiary use Diabetes mellitus complication status: with circulatory complication Code(s): E11.9 - Type 2 diabetes mellitus without complications Status: Acute Assessment and Plan: -Hemoglobin A1c 12.2. -Patient will need to establish care with primary care provider and for diabetes management. -nurse informatics educator discussed today with patient -patient needs to start eating, will add Lantus, continue to watch how much insulin he will need -will need to see which medications he can afford patient will likely need to be on multiple agents (7) Acute encephalopathy: Code(s): G93.40 - Encephalopathy, unspecified Status: Acute Assessment and Plan: Likely infectious encephalopathy secondary to osteomyelitis and right foot. Continue IV antibiotics to treat underlying issue. Encouraging patient to be more active working with physical therapy, sitting up in chair. Additional Plan Diet: Carb controlled, adding Glucerna meal supplement DVT prophylaxis: Lovenox Code status: Full code Disposition: Pending clinical course Social: updated 09/20/2020 Subjective Date/time seen: 09/20/20 11:46 Patient examined. He is very somnolent and tired. Adding Glucerna to his meals. Advised him to work with physical therapy and get up and he complains of being too weak. Consulting infectious disease Dr. Peter to follow for IV antibiotics and likely home health. Still waiting on pathology for margins and cultures/sensitivities. Continue IV antibiotics as is for now. Blood sugar stable in 200s. Will need to start patient on Lantus once he starts eating. will need to see with his insurance what diabetic medications he can be on. Consulting PT to work with patient since he is laying in bed all day. Updated Verdis about patient needing PCP, infectious disease for the IV antibiotics, fruit coordinator to follow feet, yearly eye e
--- NOTE | 2020-09-20 12:05 | PCCDE ---
diabetes education f/up: pt s/p 5th ray amputation; new onset DM-currently on moderate dose correction scale. BG range last 24hrs 227-378mg/dl. Noted pt refusing meals. Pt is insured with . Met with pt [phone]; per verbal discussion with hospitalist Dr Mittal, pt will likely go home on once daily long acting insulin and oral DM med. Pt sts I will do whatever you tell me to do. Reviewed what is T2DM, sx of hyperglycemia (pt claims polyuria but denies fatigue), management of T2DM and importance of managing glucose to promote healing and prevent further complications. 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 I encouraged the pt of need to eat nutritious foods for healing. Pt initially refused Glucerna Shake that staff brought in but then he did drink about half of it. Pt was not forthcoming about his eating habits but again said he would do whatever told. Advised not to drink sugar added beverages and eat 3 well balanced meals daily. MEDICATIONS: Discussed the use of long acting insulin and oral meds. Demonstrated how to use insulin using training pen and fake injection site. REviewed insulin action, when to take, site selection/rotation, sharp disposal, storage/expiration. Pt declined return demo; sts I got it. MONITORING: Provided ONE TOUCH VERIO FLEX BG meter (free of charge) and instructed: how to use, when to test, BG goals, recording and sharing results with PCP, coverage and how to get supplies. Pt declined to do a test. Reviewed causes, sx and tx of hypoglycemia and advised to carry glucose tabs. Discussed the importance of f/up with PCP; pt sts he hasn't seen a doctor in over 40 years but he is getting a doctor. 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 I left my contact info in the Diabetes Management book at bedside and encouraged him to call prn.
[2020-09-20 14:50] VITALS: BP 158/86; PULSE 90; RESP 16; TEMP 37.1; O2SAT 96
[2020-09-20 16:09] LABS: Glucose Point of Care 257 (65-105)
[2020-09-20 18:02] LABS: Vancomycin Trough 13.1 ug/mL (10.0-20.0)
--- NOTE | 2020-09-20 20:23 | WPDINFPN2 ---
Progress Note: A&P Assessment and Plan (1) Osteomyelitis of ankle or foot, right, acute: Code(s): M86.171 - Other acute osteomyelitis, right ankle and foot Status: Acute Assessment and Plan: OM. REC PipTazo # 1, continue Vanc but stop if the S aureus is susceptible to oxacillin. IV rx through 10/29/20. Glycemic control is mandatory. Ok discharge planning anytime. Call if other Qs Subjective Date/time seen: 09/20/20 20:23 Objective Data Vital Signs Vital Signs: Vital Signs - 24 hr 09/19/20 22:00 09/20/20 06:00 09/20/20 14:50 Temperature 36.8 C 36.7 C 37.1 C Pulse Rate 101 H 97 90 Respiratory Rate 16 18 16 Blood Pressure 156/76 H 155/89 H 158/86 H Pulse Oximetry 96 94 96 Intake/Output Intake/Output: Intake & Output 09/17/20 09/18/20 09/19/20 09/20/20 23:59 23:59 23:59 23:59 Intake Total 3650 1150 1790 1270 Output Total 4317 927 4936 1450 Balance 2250 550 665 -180 Meds/Results Medications: Active Medications Generic Name Dose Route Start Last Admin Trade Name Freq PRN Reason Stop Dose Admin Acetaminophen 650 mg 09/16/20 20:44 09/17/20 20:08 Acetaminophen 325 Mg Tablet PO 650 mg Q4H PRN Administration Mild Pain (1-3) or Fever Hydrocodone Bitart/Acetaminophen 1 tab 09/16/20 20:44 09/18/20 12:49 Hydrocodone/Acetaminophen (*Crx) 5-325 Mg Tablet PO 1 tab Q4H PRN Administration Pain Rated 4-6 Dextrose 12.5 gm 09/17/20 00:46 Dextrose 50% 25 Gm/50 Ml Syringe IV PUSH PRN PRN Hypoglycemia Protocol Docusate Sodium 100 mg 09/18/20 09:26 09/20/20 20:13 Docusate Sodium 100 Mg Capsule PO Not Given Q12HR ZELDA Glucagon 1 mg 09/17/20 00:46 Glucagon For Inj 1 Mg Vial IM PRN PRN Hypoglycemia Protocol Glucose 15 gm 09/17/20 00:46 Glucose Oral Gel 15 Gm Of Glucse In 37.5 Gm Tube PO PRN PRN Hypoglycemia Protocol Dextrose 1,000 mls @ 100 mls/hr 09/17/20 00:46 Dextrose 5% 1,000 Ml IVPB PRN PRN Hypoglycemia Protocol Vancomycin HCl 1,750 mg in 500 mls @ 250 mls/hr 09/20/20 18:00 09/20/20 18:46 Vancomycin 1,750 Mg/D5w 500 Ml IVPB 250 mls/hr Q12H ZELDA Administration Imipenem/Cilastatin Sodium 500 mg in 100 mls @ 300 mls/hr 09/20/20 20:00 09/20/20 20:13 Primaxin 500 Mg/D5w 100 Ml IVPB 300 mls/hr Q6H ZELDA Administration Insulin Aspart 3 - 6 units 09/17/20 08:00 09/20/20 16:39 Insulin Aspart (*Bkc) 100 Units/Ml SUB-Q 4 units TIDWM ZELDA Administration Protocol Magnesium Hydroxide 30 ml 09/18/20 09:26 Magnesium Hydroxide Susp 30 Ml Udc PO BID PRN Constipation Morphine Sulfate 3 mg 09/18/20 09:26 Morphine Sulfate (*Crx) 4 Mg/Ml Inj IV PUSH Q3H PRN Pain Rated 7-10 Ondansetron HCl 4 mg 09/16/20 20:44 09/17/20 08:47 Ondansetron Inj 4 Mg/2 Ml Vial IV PUSH 4 mg Q4H PRN Administration Nausea Radiology Results: ITS Impressions Foot X-Ray 09/16/20 19:29 IMPRESSION: 1. No cortical erosions to suggest osteomyelitis. 2. 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 Labs Labs: Laboratory Results - last 24 hr 09/19/20 09/19/20 09/20/20 21:07 21:08 05:56 WBC 19.1 H RBC 3.86 L Hgb 10.5 L Hct 30.6 L MCV 79.3 L MCH 27.2 MCHC 34.3 RDW 11.8 Plt Count 387 H MPV 9.4 Sodium Potassium Chloride Carbon Dioxide Anion Gap BUN Creatinine Estim Creat Clear Calc Estimated GFR Glucose POC Capillary Glucose 332 H 320 H Calcium Vancomycin Trough 09/20/20 09/20/20 09/20/20 05:56 07:41 11:30 WBC RBC Hgb Hct MCV MCH MCHC RDW Plt Count MPV Sodium 131 L Potassium 3.6 Chloride 97 L Carbon Dioxide 30 Anion Gap 4 L BUN 14 Creatinine 0.90 Estim Creat Clear Calc 74 Estimated GFR
--- NOTE | 2020-09-20 21:07 | CONS_ITS ---
DATE OF CONSULTATION: 09/20/2020 REASON FOR CONSULTATION: Osteomyelitis. HISTORY OF PRESENT ILLNESS: A 65-year-old male without known diabetes, has not seen a physician years, admitted to the emergency room on September 16 with 2 weeks of a right foot ulcer. He reports that he chronically picks at a callus on the foot. This eventually broke open and he presented to the emergency room. He has been on imipenem and vancomycin since arrival. He was taken to the operating room on September 18. This is postop day #2. He underwent ray amputation with findings including vascular arterial insufficiency, purulence at the 5th metatarsal head, extensive soft tissue defect. Wound VAC is now in place. Consultation requested. He remains on his antibiotics as above. He denies any other known trauma. No fever, chills, or sweats. Patient is unwilling to provide further details of his present illness, stating irritation with my pertinent questions. ALLERGIES: NONE KNOWN. PRESENT MEDICATIONS: None on admission. No immunosuppressants ongoing. HABITS: No tobacco. No alcohol to excess. PAST MEDICAL HISTORY: Denies chronic medical illnesses. 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 . Lives locally. FAMILY HISTORY: Not pertinent to his present illness. REVIEW OF SYSTEMS: Hyperglycemia, otherwise endocrine, musculoskeletal, skin, constitutional, GI, respiratory, negative. PHYSICAL EXAMINATION: GENERAL: This is a male, who appears actual age. No acute distress. VITAL SIGNS: Temperature shortly after arrival was up to 38.1. It was 38.2 the following day, afebrile since his operation, blood pressure 158/86, pulse 90, respiratory rate 16,and saturation 96%. SKIN: Warm and dry. No rashes. EENT: Conjunctivae are normal. Pupils equal, round. LUNGS: Clear to auscultation. CARDIAC: Regular rate and rhythm. No murmur, gallop. ABDOMEN: Soft, nontender. No masses. No organomegaly. EXTREMITIES: No clubbing, cyanosis, edema. He has a dressing in place with a wound VAC on the right foot. Left foot is bland. LABORATORY DATA: Wound culture preop had group B strep and Staph aureus to be identified further. From the operating room, Enterococcus species had been identified. Blood cultures are no growth so far. White blood cell count has been persistently high, 19.1 today, it was 19.6 on admission. Hemoglobin A1c 12%. Platelets are 387. He has hyponatremia. Accu-Cheks 100 to 300s. RADIOLOGY: Foot x-ray on arrival, no cortical erosions or osteoarthritis. ASSESSMENT: 1. Diabetic foot infection with ulcer and osteomyelitis of the head of the 5th metatarsal at the time of operation, although not evident by plain films. Group B strep, Staph aureus, and perhaps Enterococcus, all could be co-pathogens. 2. Leukocytosis because of the above. 3. Diabetes mellitus type 2. New onset. Poorly controlled. RECOMMENDATIONS: 1. Piperacillin in place of the imipenem and continue through October 29, giving him 6 weeks postop. 2. Continue vancomycin at this time, but if his Staph aureus is found to be susceptible, stop. 3. Glycemic control is mandatory for control of his infection. 4. Local wound care. 5. Okay with discharge planning. Thank you very much for asking me to see him. LAUREN LEIAV M.D. RESEARCH PROGRAM MANAGER RESEARCH PROGRAM MANAGER D I MT: Hayley GIL
[2020-09-20 21:31] LABS: Glucose Point of Care 298 (65-105)
[2020-09-20 22:00] VITALS: BP 166/88; PULSE 99; RESP 18; TEMP 37.8; O2SAT 96
[2020-09-20] MEDS: ACETAMINOPHEN 325 MG TABLET 650 MG PO (23:56)
[2020-09-21 01:27] VITALS: TEMP 37.2
[2020-09-21 06:00] VITALS: BP 153/84; PULSE 93; RESP 18; TEMP 37.3; O2SAT 97
[2020-09-21 06:29] LABS: Basophils Absolute Auto 0.1 K/mm3 (0.0-0.1); Basophils Percent Auto 0.4 % (0.2-1.2); Eosinophils Absolute Auto 0.2 K/mm3 (0-0.3); Eosinophils Percent Auto 1.2 % (0-4.4); Hematocrit 33.2 % (42.0-52.0); Hemoglobin 11.4 g/dL (14.0-18.0); Immature Granulocyte Absolute 0.45 K/mm3 (0.00-0.031); Immature Granulocyte Percent A 2.7 % (0-0.5); Lymphocytes Absolute Auto 1.04 K/mm3 (0.9-3.2); Lymphocytes Percent Auto 6.3 % (18.3-44.2); Mean Corpuscular HGB Conc 34.3 g/dl (32-36); Mean Corpuscular Hemoglobin 27.7 pg (26-34); Mean Corpuscular Volume 80.8 fl (80-100); Mean Platelet Volume 10.2 fl (7.4-10.4); Monocytes Absolute Auto 1.1 K/mm3 (0.1-0.6); Monocytes Percent Auto 6.8 % (2.6-8.5); Neutrophils Absolute Auto 13.5 K/mm3 (1.3-6.7); Neutrophils Percent Auto 82.6 % (45.5-73.1); Nucleated Red Blood Cells Perc 0.2 % (0.0-0.2); Platelet Count Result 368 k/mm3 (150-375); Red Blood Count 4.11 M/mm3 (4.6-6.20); Red Cell Distribution Width 11.9 % (11.5-14.5); White Blood Count 16.4 K/mm3 (4.5-10.0)
[2020-09-21 06:52] LABS: Anion Gap 6 mmol/L (8-16); Blood Urea Nitrogen 17 mg/dL (9-20); Calcium 8.2 mg/dL (8.4-10.2); Carbon Dioxide 31 mmol/L (22-30); Chloride 97 mmol/L (98-107); Estimated CRCL calculation 67 ml/min; Estimated Glomerular Filt Rate > 60; Glucose 276 mg/dL (75-110); Potassium 3.7 mmol/L (3.4-5.0); Sodium 134 mmol/L (137-145)
[2020-09-21 09:06] LABS: Glucose Point of Care 343 (65-105)
[2020-09-21] MEDS: INSULIN ASPART (*BKC) 100 UNITS/ML SUB-Q ×3 (09:07→17:34)
[2020-09-21] MEDS: DOCUSATE SODIUM 100 MG CAPSULE PO (09:07)
--- NOTE | 2020-09-21 10:47 | PM.IMPN ---
Progress Note: A&P Assessment and Plan (1) Osteomyelitis of ankle or foot, right, acute: Code(s): M86.171 - Other acute osteomyelitis, right ankle and foot Status: Acute Assessment and Plan: -postop day 3 right foot 5th digit ray amputation by Dr. Sainz -stopping vancomycin as patient does not have MRSA, continue IV Zosyn -the patient has wound cultures MSSA, ampicillin sensitive Enterococcus, group B strep isolate all of these organisms are sensitive to penicillin, we may be able to deescalate to oxacillin, will confer with Infectious Disease specialist -plan for PICC line Wednesday, IV antibiotics with home health wound -leukocytosis improving, patient is clinically more awake and alert and improving -pain control: Tylenol, [place] and morphine -nausea: Zofran -bowel regimen: Docusate (2) Sepsis: Qualifiers: Acute renal failure type: unspecified Sepsis acute organ dysfunction status: with acute organ dysfunction Sepsis type: sepsis due to unspecified organism Severe sepsis acute organ dysfunction type: acute renal failure Severe sepsis shock status: without septic shock Qualified Code(s): A41.9 - Sepsis, unspecified organism; R65.20 - Severe sepsis without septic shock; N17.9 - Acute kidney failure, unspecified Code(s): A41.9 - Sepsis, unspecified organism Status: Resolved Assessment and Plan: Sepsis resolved, IV antibiotics for osteomyelitis (3) Acute renal failure: Qualifiers: Acute renal failure type: unspecified Qualified Code(s): N17.9 - Acute kidney failure, unspecified Code(s): N17.9 - Acute kidney failure, unspecified Status: Resolved Assessment and Plan: Resolved (4) Normocytic anemia: Code(s): D64.9 - Anemia, unspecified Status: Acute Assessment and Plan: Chronicity unknown, will watch (5) Dehydration: Code(s): E86.0 - Dehydration Status: Resolved Assessment and Plan: Resolved (6) Type 2 diabetes mellitus: Qualifiers: Diabetes mellitus complication status: with circulatory complication Diabetes mellitus skilled nursing insulin use: without intermodal owner operator truck driver use Code(s): E11.9 - Type 2 diabetes mellitus without complications Status: Acute Assessment and Plan: -Hemoglobin A1c 12.2. -Patient will need to establish care with primary care provider and for diabetes management. -vocal performer discussed with patient -patient's appetite is increased, adding Lantus 11 units q.h.s., adding metformin 500 mg b.i.d. hopefully he tolerates and can be increased, PCP will have to work on diabetic agents are within insurance coverage (7) Acute encephalopathy: Code(s): G93.40 - Encephalopathy, unspecified Status: Acute Assessment and Plan: Likely infectious encephalopathy secondary to osteomyelitis and right foot. Continue IV antibiotics to treat underlying issue. Encouraging patient to be more active working with physical therapy, sitting up in chair. Additional Plan Diet: Carb controlled, adding Glucerna meal supplement DVT prophylaxis: Lovenox Code status: Full code Disposition: Plan for home with home health, PICC line Wednesday Social: updated 09/21/2020 Subjective Date/time seen: 09/21/20 10:47 Patient examined. He is doing well the compared to yesterday, less somnolent more awake and alert. He is eating his breakfast with no problems. Adding metformin 500 mg b.i.d. and starting patient on Lantus 11 units q.h.s., he will have a follow-up with PCP to figure out what diabetic regimen will be covered with his insurance. Dr. newberry infectious disease will be following as well, get switch antibiotics to Zosyn and vancomycin. Cultures showed ampicillin sensitive Staph aureus, group B strep, Enterococcus. Patient may be able to go to oxacillin, will keep Zosyn for now and stop vancomycin. Plan is for home health with wound VAC and PICC line to be placed on Wed
[2020-09-21] MEDS: metFORMIN HCL 500 MG TABLET PO ×2 (12:08→17:24)
[2020-09-21 14:00] VITALS: BP 165/87; PULSE 94; RESP 20; TEMP 36.5; O2SAT 94
--- NOTE | 2020-09-21 14:22 | PM.PNORT ---
Progress Note: A&P Additional Plan 5TH RAY AMPUTATION DING WELL. PIC TO FOLLOW FOR MSSA. CONT DRESSING CHANGES. Subjective Subjective Date/Time Seen: 09/21/20 14:22 POD 3 IMPROVING. METH SENSITIVE STAPH. NO NEW COMPLAINTS Exam Extrem: Other: VSS AFEBRILE DRESSING DRY CALF SOFT NON TENDER Objective Data Vital Signs Vital Signs: Vital Signs - 24 hr 09/20/20 14:50 09/20/20 22:00 09/21/20 01:27 Temperature 37.1 C 37.8 C H 37.2 C Pulse Rate 90 99 Respiratory Rate 16 18 Blood Pressure 158/86 H 166/88 H Pulse Oximetry 96 96 09/21/20 06:00 09/21/20 14:00 Temperature 37.3 C 36.5 C Pulse Rate 93 94 Respiratory Rate 18 20 Blood Pressure 153/84 H 165/87 H Pulse Oximetry 97 94 Intake/Output Intake/Output: Intake & Output 09/18/20 09/19/20 09/20/20 09/21/20 23:59 23:59 23:59 23:59 Intake Total 1150 1790 1770 1310 Output Total 600 1125 1450 650 Balance 550 665 320 660 Meds/Results Medications: Active Medications Generic Name Dose Route Start Last Admin Trade Name Freq PRN Reason Stop Dose Admin Acetaminophen 650 mg 09/16/20 20:44 09/20/20 23:56 Acetaminophen 325 Mg Tablet PO 650 mg Q4H PRN Administration Mild Pain (1-3) or Fever Hydrocodone Bitart/Acetaminophen 1 tab 09/16/20 20:44 09/18/20 12:49 Hydrocodone/Acetaminophen (*Crx) 5-325 Mg Tablet PO 1 tab Q4H PRN Administration Pain Rated 4-6 Dextrose 12.5 gm 09/17/20 00:46 Dextrose 50% 25 Gm/50 Ml Syringe IV PUSH PRN PRN Hypoglycemia Protocol Docusate Sodium 100 mg 09/18/20 09:26 09/21/20 09:07 Docusate Sodium 100 Mg Capsule PO 100 mg Q12HR ZELDA Administration Glucagon 1 mg 09/17/20 00:46 Glucagon For Inj 1 Mg Vial IM PRN PRN Hypoglycemia Protocol Glucose 15 gm 09/17/20 00:46 Glucose Oral Gel 15 Gm Of Glucse In 37.5 Gm Tube PO PRN PRN Hypoglycemia Protocol Dextrose 1,000 mls @ 100 mls/hr 09/17/20 00:46 Dextrose 5% 1,000 Ml IVPB PRN PRN Hypoglycemia Protocol Piperacillin/Tazobactam/Dextrose 3.375 gm in 50 mls @ 100 mls/hr 09/21/20 00:00 09/21/20 12:39 Zosyn 3.375 Gm/D5w 50ml Pm IVPB Infused Q6HR ZELDA Infusion Insulin Aspart 3 - 6 units 09/17/20 08:00 09/21/20 12:08 Insulin Aspart (*Bkc) 100 Units/Ml SUB-Q 5 units TIDWM ZELDA Administration Protocol Insulin Glargine 11 units 09/21/20 21:00 Insulin Glargine (*Bkc) 100 Units/Ml 0.15 units/kg (11 units) SUB-Q HS ZELDA Magnesium Hydroxide 30 ml 09/18/20 09:26 Magnesium Hydroxide Susp 30 Ml Udc PO BID PRN Constipation Metformin HCl 500 mg 09/21/20 10:15 09/21/20 12:08 Metformin Hcl 500 Mg Tablet PO 500 mg BIDWM ZELDA Administration Morphine Sulfate 3 mg 09/18/20 09:26 Morphine Sulfate (*Crx) 4 Mg/Ml Inj IV PUSH Q3H PRN Pain Rated 7-10 Ondansetron HCl 4 mg 09/16/20 20:44 09/17/20 08:47 Ondansetron Inj 4 Mg/2 Ml Vial IV PUSH 4 mg Q4H PRN Administration Nausea Radiology Results: ITS Impressions Foot X-Ray 09/16/20 19:29 IMPRESSION: 1. No cortical erosions to suggest osteomyelitis. 2. 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 Labs Labs: Laboratory Results - last 24 hr 09/20/20 09/20/20 09/20/20 16:06 17:09 20:10 WBC RBC Hgb Hct MCV MCH MCHC RDW Plt Count MPV Immature Gran % (Auto) Neut % (Auto) Lymph % (Auto) Garvin % (Auto) Eos % (Auto) Baso % (Auto) Lymph # (Auto) Garvin # (Auto) Eos # (Auto) Baso # (Auto) Abs Immat Gran (auto) Absolute Neuts (auto) Absolute Nucleated RBC Nucleated RBC % Sodium Potassium Chloride Carbon Dioxide Anion Gap BUN Creatinine Estim Creat Clear Calc Estimated GFR Glucose POC Capillary Glucose 257 H 298 H Calcium
[2020-09-21 17:39] LABS: Glucose Point of Care 244 (65-105)
[2020-09-21 19:32] LABS: Glucose Point of Care 323 (65-105)
[2020-09-21] MEDS: INSULIN GLARGINE (*BKC) 100 UNITS/ML 11 UNITS SUB-Q (20:53)
[2020-09-21 21:03] LABS: Glucose Point of Care 154 (65-105)
[2020-09-21 21:58] VITALS: BP 172/86; PULSE 101; RESP 20; TEMP 36.9; O2SAT 97
[2020-09-21 23:23] VITALS: BP 146/78; PULSE 88
[2020-09-22 06:00] VITALS: BP 162/84; PULSE 98; RESP 20; TEMP 37.4; O2SAT 97
[2020-09-22 06:48] LABS: Hematocrit 32.7 % (42.0-52.0); Hemoglobin 11.1 g/dL (14.0-18.0); Mean Corpuscular HGB Conc 33.9 g/dl (32-36); Mean Corpuscular Hemoglobin 27.7 pg (26-34); Mean Corpuscular Volume 81.5 fl (80-100); Mean Platelet Volume 9.4 fl (7.4-10.4); Platelet Count Result 416 k/mm3 (150-375); Red Blood Count 4.01 M/mm3 (4.6-6.20); White Blood Count 13.4 K/mm3 (4.5-10.0)
[2020-09-22 07:03] LABS: Anion Gap 7 mmol/L (8-16); Blood Urea Nitrogen 17 mg/dL (9-20); Calcium 8.3 mg/dL (8.4-10.2); Carbon Dioxide 31 mmol/L (22-30); Chloride 100 mmol/L (98-107); Estimated CRCL calculation 50 ml/min; Estimated Glomerular Filt Rate > 60; Glucose 171 mg/dL (75-110); Potassium 3.6 mmol/L (3.4-5.0); Sodium 138 mmol/L (137-145)
[2020-09-22 08:00] VITALS: BP 166/82; PULSE 94; RESP 20; TEMP 37.4; O2SAT 96
[2020-09-22] MEDS: LOSARTAN POTASSIUM 25 MG TABLET PO (09:02)
[2020-09-22] MEDS: metFORMIN HCL 500 MG TABLET PO (09:02)
--- NOTE | 2020-09-22 11:14 | PM.IMPN ---
Progress Note: A&P Assessment and Plan (1) Osteomyelitis of ankle or foot, right, acute: Code(s): M86.171 - Other acute osteomyelitis, right ankle and foot Status: Acute Assessment and Plan: -postop day 4 right foot 5th digit ray amputation by Dr. Sainz -the patient has wound cultures MSSA, ampicillin sensitive Enterococcus, group B strep isolate all of these organisms are sensitive to penicillin, we may be able to deescalate to oxacillin, will confer with Infectious Disease specialist -antibiotics: Zosyn monotherapy -plan for PICC line Wednesday, IV antibiotics with home health wound -leukocytosis improving down to 13,000 -pain control: Tylenol, [place] and morphine -nausea: Zofran -bowel regimen: Docusate (2) Sepsis: Qualifiers: Acute renal failure type: unspecified Sepsis acute organ dysfunction status: with acute organ dysfunction Sepsis type: sepsis due to unspecified organism Severe sepsis acute organ dysfunction type: acute renal failure Severe sepsis shock status: without septic shock Qualified Code(s): A41.9 - Sepsis, unspecified organism; R65.20 - Severe sepsis without septic shock; N17.9 - Acute kidney failure, unspecified Code(s): A41.9 - Sepsis, unspecified organism Status: Resolved Assessment and Plan: Sepsis resolved, IV antibiotics for osteomyelitis (3) Acute renal failure: Qualifiers: Acute renal failure type: unspecified Qualified Code(s): N17.9 - Acute kidney failure, unspecified Code(s): N17.9 - Acute kidney failure, unspecified Status: Resolved Assessment and Plan: Resolved (4) Normocytic anemia: Code(s): D64.9 - Anemia, unspecified Status: Acute Assessment and Plan: stable, may be related to osteomyelitis sepsis, will need to re-evaluate outpatient (5) Type 2 diabetes mellitus: Qualifiers: Diabetes mellitus complication status: with circulatory complication Diabetes mellitus ocean transportation intermediary insulin use: without ocean transportation intermediary use Code(s): E11.9 - Type 2 diabetes mellitus without complications Status: Acute Assessment and Plan: -Hemoglobin A1c 12.2. -Patient will need to establish care with primary care provider and for diabetes management. -clinical trial educator discussed with patient -patient's appetite is increased, adding Lantus 11 units q.h.s., adding metformin 500 mg b.i.d. hopefully he tolerates and can be increased, PCP will have to work on diabetic agents are within insurance coverage (6) Acute encephalopathy: Code(s): G93.40 - Encephalopathy, unspecified Status: Acute Assessment and Plan: Likely infectious encephalopathy secondary to osteomyelitis and right foot. Continue IV antibiotics to treat underlying issue. Encouraging patient to be more active working with physical therapy, sitting up in chair. (7) Essential (primary) hypertension: Code(s): I10 - Essential (primary) hypertension Status: Acute Assessment and Plan: -systolic blood pressure 160s, patient blood pressure is likely essential hypertension as opposed to post operational pain related. -starting patient on Norvasc 5 mg and Cozaar 25 mg, patient will likely need to be on multiple agents for blood pressure. Additional Plan Diet: Carb controlled, Glucerna meal supplement DVT prophylaxis: Lovenox Code status: Full code Disposition: Plan for home with home health for IV antibiotics, PICC line to be placed tomorrow, need wound VAC approval Social: updated 09/21/2020 Subjective Date/time seen: 09/22/20 11:14 Patient examined. Postop day 4 5th digit ray amputation right foot by Dr. Sainz. Blood pressure is still elevated 160s, this is likely secondary to essential hypertension as opposed to post operation all. Started patient on Norvasc 5mg and Cozaar 25 mg. Patient will likely be on multiple agents as blood pressure is 160 systolic. Along with his metoprolol they will
[2020-09-22] MEDS: INSULIN ASPART (*BKC) 100 UNITS/ML SUB-Q (12:11)
--- NOTE | 2020-09-22 14:36 | PCPTNOTE ---
Patient refused treatment this session due to not feeling well. Pt stated I've been pooping all day. I've been up and down and everyone wants me to do something! It just need some rest, I have no energy. After sympathizing with Pt explained the importance of therapy. Pt responded I appreciate you coming to check on me but today it's a no. Will continue tomorrow per POC.
[2020-09-22] MEDS: ONDANSETRON INJ 4 MG/2 ML VIAL IV PUSH (15:32)
[2020-09-22 16:00] VITALS: BP 140/80; PULSE 104; RESP 20; TEMP 37.7; O2SAT 96
[2020-09-22 17:06] LABS: Glucose Point of Care 158 (65-105)
[2020-09-22 17:07] LABS: Glucose Point of Care 204 (65-105)
[2020-09-22 17:07] LABS: Glucose Point of Care 185 (65-105)
--- NOTE | 2020-09-22 18:31 | PC.NURSE ---
Patient refused noon dose of Norvasc and now refused [address]. Alfonso aware.
[2020-09-22] MEDS: INSULIN GLARGINE (*BKC) 100 UNITS/ML 11 UNITS SUB-Q (20:29)
[2020-09-22 22:40] VITALS: BP 131/71; PULSE 92; RESP 20; TEMP 36.6; O2SAT 98
[2020-09-22 22:59] LABS: Glucose Point of Care 162 (65-105)
[2020-09-23 05:00] VITALS: BP 139/81; PULSE 88; RESP 20; TEMP 38; O2SAT 98
[2020-09-23 06:46] LABS: Alanine Aminotransferase 25 U/L (4-50); Alkaline Phosphatase 145 U/L (38-126); Anion Gap 4 mmol/L (8-16); Aspartate Amino Transferase 57 U/L (17-59); Bilirubin,Total 0.5 mg/dL (0.2-1.3); Blood Urea Nitrogen 18 mg/dL (9-20); Carbon Dioxide 33 mmol/L (22-30); Chloride 99 mmol/L (98-107); Estimated CRCL calculation 39 ml/min; Estimated Glomerular Filt Rate 57; Glucose 126 mg/dL (75-110); Potassium 3.5 mmol/L (3.4-5.0); Sodium 136 mmol/L (137-145)
[2020-09-23 08:00] VITALS: BP 155/82; PULSE 96; RESP 18; TEMP 37.6; O2SAT 97
[2020-09-23 08:52] LABS: Glucose Point of Care 147 (65-105)
--- NOTE | 2020-09-23 08:58 | PM.PNORT ---
Progress Note: A&P Assessment and Plan (1) Osteomyelitis of ankle or foot, right, acute: Code(s): M86.171 - Other acute osteomyelitis, right ankle and foot Status: Acute Assessment and Plan: POD #5: Right 5th Ray Amputation/Debridement of DFU. Wound VAC removed. Adaptic/Dry gauze placed. Plan for MRI of the right foot given diffuse tenderness and erythema on the plantar midfoot. Continue IV antibiotics per ID. PICC line to be placed today. Post op shoe with PWB on heel. Pending MRI results/reapplication of wound VAC, patient to go home with for IV antibiotics/wound care. Will arrange follow up for wound care in wound clinic upon discharge. (2) Type 2 diabetes mellitus: Qualifiers: Diabetes mellitus complication status: with circulatory complication Diabetes mellitus intermediate designer insulin use: without snf use Diabetes mellitus complication detail: with other circulatory complications Qualified Code(s): E11.59 - Type 2 diabetes mellitus with other circulatory complications Code(s): E11.9 - Type 2 diabetes mellitus without complications Status: Acute Assessment and Plan: Will need close diabetic control as an outpatient for optimal healing. PCP follow up to be arranged by patient per CC with Dr. Gladys Wilcox. Will plan for home with home health for IV antibiotics/dressing changes with WOUND VAC. Subjective Subjective Date/Time Seen: 09/23/20 08:58 POD #5: Right 5th Ray amputation/DFU debridement No new complaints. Resting comfortably in bed. Pain on the plantar aspect of the right foot with some extension to the medial side. Review of Systems Review of Systems: All systems reviewed & are unremarkable except as noted in HPI and below Constitutional: Constitutional: Denies chills, Denies fatigue, Denies fever(s), Denies night sweats and Denies weakness Cardiovascular: Cardiovascular: Denies chest pain and Denies lightheadedness Respiratory: Respiratory: Denies dyspnea Gastrointestinal: Gastrointestinal: Reports no additional gastrointestinal complaints, Denies diarrhea, Denies nausea and Denies vomiting Genitourinary: Genitourinary: Reports no additional male genitourinary complaints Musculoskeletal: Musculoskeletal: Reports as per HPI Exam Const: General: comfortable and no acute distress Resp: Effort & Inspection: normal respiratory effort Cardio: Rate: regular rate Rhythm: regular rhythm GI: Inspection: non-distended GI Palp: Yes Soft to palpation and No Tenderness to palpation present (GI) Skin: Wounds: wounds noted (Right Lateral Forefoot ) Other: Wound VAC removed from the right foot. 5th Ray amputation noted. Remaining wound over the are of the right 5th metatarsal head with 50% red/pink tissue and 50% necrosis. Incision line which runs along the lateral midfoot to forefoot is wet with surrounding tissue necrosis. Plantar aspect of the midfoot with area of wet necrosis/tenderness and mild erythema. Diffuse right foot tenderness. No active drainage. No malodor. Neuro: Cognition (Neuro): normal cognition Speech: normal speech Other: decreased sensation RIGHT foot Extrem: Right lower extremity: lower leg (Negative Jay's Sign ) Details: no tenderness, ankle (+ankle dorsiflexion/plantarflexion ) and foot (5th ray amputation ) Details: tenderness (diffuse ), warmth (mild ) Location: of the lateral foot Location: distally, in the mid-section and at the base of the 5th metatarsal, vascular exam (palpable ) Details: dorsalis pedis pulse present and motor-sensory exam Details: light-touch abnormal Location: in the great toe, in the 2nd digit, in the 3rd digit and in the 4th digit; not in the 5th digit (absent ) Other: See skin assessment regarding right foot. Psych: Mental Status: mental status grossly normal Affect: normal affect Objective Data Vital Signs Vital Signs: Vital Signs - 24 hr 09/22/20 16:00 09/22/20 22:40 09/23/20 05:00
[2020-09-23] MEDS: amLODIPine BESYLATE 5 MG TABLET PO (09:56)
[2020-09-23] MEDS: LOSARTAN POTASSIUM 25 MG TABLET PO (09:56)
[2020-09-23] MEDS: metFORMIN HCL 500 MG TABLET PO ×2 (09:56→17:15)
--- NOTE | 2020-09-23 11:38 | PCDIET ---
Physician consult for diabetic education. Spoke with patient today regarding diabetic diet. Patient states to not eating breakfast daily at home. He had peaches and oatmeal today for breakfast. He is refusing Glucerna shakes as they were encouraged for wound healing. Patient has patient instructions attached regarding diabetic diet. He also has been given a diabetic management booklet. Thank you for the consult.
--- NOTE | 2020-09-23 13:35 | PM.IMPN ---
Progress Note: A&P Assessment and Plan (1) Osteomyelitis of ankle or foot, right, acute: Code(s): M86.171 - Other acute osteomyelitis, right ankle and foot Status: Acute Assessment and Plan: -postop day 5 right foot 5th digit ray amputation by Dr. Sainz -the patient has wound cultures MSSA, ampicillin sensitive Enterococcus, group B strep isolate all of these organisms are sensitive to penicillin -antibiotics: Zosyn monotherapy for diabetic foot wound, discussed with Dr. Peter -PICC line ordered, IV antibiotics with home health, Dr. Peter will follow -leukocytosis improving -pain control: Tylenol, [place] and morphine -nausea: Zofran -MRI right foot ordered 09/23: no osteomyelitis (2) Sepsis: Qualifiers: Sepsis type: sepsis due to unspecified organism Sepsis acute organ dysfunction status: with acute organ dysfunction Severe sepsis acute organ dysfunction type: acute renal failure Acute renal failure type: unspecified Severe sepsis shock status: without septic shock Qualified Code(s): A41.9 - Sepsis, unspecified organism; R65.20 - Severe sepsis without septic shock; N17.9 - Acute kidney failure, unspecified Code(s): A41.9 - Sepsis, unspecified organism Status: Resolved Assessment and Plan: Sepsis resolved, IV antibiotics for osteomyelitis (3) Acute renal failure: Qualifiers: Acute renal failure type: unspecified Qualified Code(s): N17.9 - Acute kidney failure, unspecified Code(s): N17.9 - Acute kidney failure, unspecified Status: Resolved Assessment and Plan: Resolved (4) Normocytic anemia: Code(s): D64.9 - Anemia, unspecified Status: Acute Assessment and Plan: stable, may be related to osteomyelitis sepsis, will need to re-evaluate outpatient (5) Type 2 diabetes mellitus: Qualifiers: Diabetes mellitus terminal gauger insulin use: without longterm use Diabetes mellitus complication status: with circulatory complication Diabetes mellitus complication detail: with other circulatory complications Qualified Code(s): E11.59 - Type 2 diabetes mellitus with other circulatory complications Code(s): E11.9 - Type 2 diabetes mellitus without complications Status: Acute Assessment and Plan: -Hemoglobin A1c 12.2. -Patient will need to establish care with primary care provider and for diabetes management. -agricultural extension educator discussed with patient -added Lantus 11 units q.h.s., added metformin 500 mg b.i.d. hopefully he tolerates and can be increased, PCP will have to work on diabetic agents are within insurance coverage. Patient complains of nausea and vomiting. 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 (6) Acute encephalopathy: Code(s): G93.40 - Encephalopathy, unspecified Status: Acute Assessment and Plan: -Likely infectious encephalopathy secondary to osteomyelitis and right foot. Continue IV antibiotics to treat underlying issue. -patient needs to work with physical therapy and get up to chair for his rehabilitation. (7) Essential (primary) hypertension: Code(s): I10 - Essential (primary) hypertension Status: Acute Assessment and Plan: -systolic blood pressure 150s -continue patient on Norvasc 5 mg and Cozaar 25 mg, patient will likely need to be on multiple agents for blood pressure -patient is non-compliant refusing BP meds, I tried encouraging him to cooperate with medication recommendations Additional Plan Diet: Carb controlled, Glucerna meal supplement DVT prophylaxis: Lovenox Code status: Full code Disposition: Plan for home with home health for IV antibiotics, PICC line ordered, need wound VAC approval, insurance starts 09/24/2020 Subjective Date/time seen: 09/23/20 13:35 Patient examined. 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
--- NOTE | 2020-09-23 14:34 | PCPTNOTE ---
Patient refused treatment this session due to patient stating I have no energy I'm tired. Therapist educated and encouraged patient the benefits of physical therapy. Patient continued to refuse stating I don't get any sleep. I'm tired Will continue per POC.
[2020-09-23 16:00] VITALS: BP 144/81; PULSE 92; RESP 20; TEMP 38.4; O2SAT 96
[2020-09-23] MEDS: SACCHAROMYCES BOULARDII 250 MG CAPSULE PO (17:15)
[2020-09-23 18:01] LABS: Glucose Point of Care 133 (65-105)
[2020-09-23] MEDS: INSULIN GLARGINE (*BKC) 100 UNITS/ML 11 UNITS SUB-Q (19:52)
[2020-09-23 20:54] LABS: Glucose Point of Care 234 (65-105)
[2020-09-23 21:59] VITALS: BP 133/79; PULSE 98; RESP 16; TEMP 37.6; O2SAT 96
[2020-09-24 00:04] LABS: Glucose Point of Care 165 (65-105)
[2020-09-24 05:50] VITALS: BP 140/78; PULSE 84; RESP 18; TEMP 36.6; O2SAT 94
[2020-09-24 06:34] LABS: Hemoglobin 10.7 g/dL (14.0-18.0); Mean Corpuscular HGB Conc 33.4 g/dl (32-36); Mean Corpuscular Hemoglobin 27.7 pg (26-34); Mean Corpuscular Volume 82.9 fl (80-100); Mean Platelet Volume 9.1 fl (7.4-10.4); Platelet Count Result 377 k/mm3 (150-375); Red Blood Count 3.86 M/mm3 (4.6-6.20); Red Cell Distribution Width 12.1 % (11.5-14.5); White Blood Count 12.5 K/mm3 (4.5-10.0)
[2020-09-24 06:50] LABS: Anion Gap 5 mmol/L (8-16); Blood Urea Nitrogen 17 mg/dL (9-20); Calcium 7.8 mg/dL (8.4-10.2); Carbon Dioxide 30 mmol/L (22-30); Chloride 99 mmol/L (98-107); Estimated CRCL calculation 44 ml/min; Estimated Glomerular Filt Rate > 60; Glucose 197 mg/dL (75-110); Potassium 3.6 mmol/L (3.4-5.0); Sodium 134 mmol/L (137-145)
[2020-09-24] MEDS: LOSARTAN POTASSIUM 25 MG TABLET PO (08:26)
[2020-09-24] MEDS: SACCHAROMYCES BOULARDII 250 MG CAPSULE PO ×2 (08:26→18:29)
[2020-09-24] MEDS: metFORMIN HCL 500 MG TABLET PO ×2 (08:26→18:29)
[2020-09-24] MEDS: amLODIPine BESYLATE 5 MG TABLET PO (08:26)
[2020-09-24 11:39] LABS: Glucose Point of Care 155 (65-105)
[2020-09-24 14:00] VITALS: BP 141/82; PULSE 93; RESP 20; TEMP 37.6; O2SAT 97
--- NOTE | 2020-09-24 14:53 | PCPTNOTE ---
Patient refused treatment this session. Patient reports therapy will not help him.
--- NOTE | 2020-09-24 15:05 | PM.IMPN ---
Progress Note: A&P Assessment and Plan (1) Osteomyelitis of ankle or foot, right, acute: Code(s): M86.171 - Other acute osteomyelitis, right ankle and foot Status: Acute Assessment and Plan: -postop day 5 right foot 5th digit ray amputation by Dr. Sainz -the patient has wound cultures MSSA, ampicillin sensitive Enterococcus, group B strep isolate all of these organisms are sensitive to penicillin -antibiotics: Zosyn monotherapy for diabetic foot wound, discussed with Dr. Peter -PICC line ordered, IV antibiotics with home health, Dr. Peter will follow -leukocytosis improving -pain control: Tylenol, [place] and morphine -nausea: Zofran -MRI right foot ordered 09/23: no osteomyelitis - plan as before see earlier notes - hopeful dc soon (2) Sepsis: Qualifiers: Sepsis type: sepsis due to unspecified organism Sepsis acute organ dysfunction status: with acute organ dysfunction Severe sepsis acute organ dysfunction type: acute renal failure Acute renal failure type: unspecified Severe sepsis shock status: without septic shock Qualified Code(s): A41.9 - Sepsis, unspecified organism; R65.20 - Severe sepsis without septic shock; N17.9 - Acute kidney failure, unspecified Code(s): A41.9 - Sepsis, unspecified organism Status: Resolved Assessment and Plan: Sepsis resolved, IV antibiotics for osteomyelitis (3) Acute renal failure: Qualifiers: Acute renal failure type: unspecified Qualified Code(s): N17.9 - Acute kidney failure, unspecified Code(s): N17.9 - Acute kidney failure, unspecified Status: Resolved Assessment and Plan: Resolved (4) Normocytic anemia: Code(s): D64.9 - Anemia, unspecified Status: Acute Assessment and Plan: stable (5) Type 2 diabetes mellitus: Qualifiers: Diabetes mellitus penitentiary insulin use: without director long term care use Diabetes mellitus complication status: with circulatory complication Diabetes mellitus complication detail: with other circulatory complications Qualified Code(s): E11.59 - Type 2 diabetes mellitus with other circulatory complications Code(s): E11.9 - Type 2 diabetes mellitus without complications Status: Acute Assessment and Plan: -Hemoglobin A1c 12.2. -Patient will need to establish care with primary care provider and for diabetes management. -nurses educator discussed with patient -added Lantus 11 units q.h.s., added metformin 500 mg b.i.d. hopefully he tolerates and can be increased, PCP will have to work on diabetic agents are within insurance coverage. Patient complains of nausea and vomiting. probably secondary to IV ABX (6) Acute encephalopathy: Code(s): G93.40 - Encephalopathy, unspecified Status: Acute Assessment and Plan: -Likely infectious encephalopathy secondary to sepsis (7) Essential (primary) hypertension: Code(s): I10 - Essential (primary) hypertension Status: Acute Assessment and Plan: -systolic blood pressure 150s -continue patient on Norvasc 5 mg and Cozaar 25 mg, discussed importance of medications Subjective Date/time seen: 09/24/20 15:05 Interval history: 65-year-old male who presented to the hospital with a complaint of right foot swelling and redness that has been ongoing for the past 3 weeks. Pt wound looks, dry, intact but is painful and shallow. pt is sp debridement diabetic foot ulcer right foot with possible 5th ray amputation. pt is slowly improving has a wound vac on presently, hopeful DC soon. Review of Systems Review of Systems: All systems reviewed & are unremarkable except as noted in HPI and below Exam Narrative: Exam Narrative: - GENERAL: Pleasant male appears tired due to acute illness - EYES: EOMI. - HENT: Moist mucous membranes. - LUNGS: Clear to auscultation bilaterally, no wheezing, rhonchi, or rales. - CARDIOVASCULAR: Regular rate and rhythm
--- NOTE | 2020-09-24 16:00 | PM.PNORT ---
Progress Note: A&P Assessment and Plan (1) Osteomyelitis of ankle or foot, right, acute: Code(s): M86.171 - Other acute osteomyelitis, right ankle and foot Status: Acute Assessment and Plan: One week status post right 5th ray amputation. Foot and wound improved appearance with switched to black foam wound VAC. Medically necessary to continue wound VAC. Discussed importance of nutrition and therapy. MRI of right foot reviewed with the patient. No signs of osteomyelitis or abscess. No persistent signs of infection or new infection. No further surgical indications at this time. Plan for discharge home with follow-up in wound clinic once medically stable. (2) Type 2 diabetes mellitus: Qualifiers: Diabetes mellitus termite inspector insulin use: without termite inspector use Diabetes mellitus complication status: with circulatory complication Diabetes mellitus complication detail: with other circulatory complications Qualified Code(s): E11.59 - Type 2 diabetes mellitus with other circulatory complications Code(s): E11.9 - Type 2 diabetes mellitus without complications Status: Acute (3) Diabetic foot ulcer: Qualifiers: Diabetic foot ulcer location: toe Diabetes mellitus type: type 2 Laterality: right Non-pressure ulcer stage: with necrosis of muscle Qualified Code(s): E11.621 - Type 2 diabetes mellitus with foot ulcer; L97.513 - Non-pressure chronic ulcer of other part of right foot with necrosis of muscle Code(s): E11.621 - Type 2 diabetes mellitus with foot ulcer; L97.509 - Non-pressure chronic ulcer of other part of unspecified foot with unspecified severity Status: Acute Subjective Subjective Date/Time Seen: 09/24/20 15:00 One week status post right foot 5th ray amputation. Patient states pain little bit better. Able to eat a little bit. Still refusing physical therapy. Exam Const: General: comfortable and no acute distress Resp: Effort & Inspection: normal respiratory effort Cardio: Rate: regular rate Rhythm: regular rhythm GI: Inspection: non-distended GI Palp: Yes Soft to palpation and No Tenderness to palpation present (GI) Skin: Wounds: wounds noted (Right Lateral Forefoot ) Other: Right foot dressing removed. Wound VAC left in place. Drainage improved. Overall swelling and appearance of incision improved. Minimal erythema. Lesser toes and hallux with some atrophic skin changes but otherwise no erythema. Unable to palpate pulses. Neuro: Cognition (Neuro): normal cognition Speech: normal speech Other: decreased sensation RIGHT foot Extrem: Right lower extremity: lower leg (Negative Jay's Sign ) Details: no tenderness, ankle (+ankle dorsiflexion/plantarflexion ) and foot (5th ray amputation ) Details: tenderness (diffuse ), warmth (mild ) Location: of the lateral foot Location: distally, in the mid-section and at the base of the 5th metatarsal, vascular exam (palpable ) Details: dorsalis pedis pulse present and motor-sensory exam Details: light-touch abnormal Location: in the great toe, in the 2nd digit, in the 3rd digit and in the 4th digit; not in the 5th digit (absent ) Other: See skin assessment regarding right foot. Psych: Mental Status: mental status grossly normal Affect: normal affect Objective Data Vital Signs Vital Signs: Vital Signs - 24 hr 09/23/20 21:59 09/24/20 05:50 09/24/20 14:00 Temperature 99.6 F 97.9 F 99.7 F H Pulse Rate 98 84 93 Respiratory Rate 16 18 20 Blood Pressure 133/79 140/78 141/82 H Pulse Oximetry 96 94 97 Intake/Output Intake/Output: Intake & Output 09/21/20 09/22/20 09/23/20 09/24/20 23:59 23:59 23:59 23:59 Intake Total 1660 1000 1580 940 Output Total 182 705 1038 300 Balance 710 550 380 640 Meds/Results Medications: Active Medications Generic Name Dose Route Start Last Admin Trade Name Freq PRN Reason Stop Dose Admin Acetaminophen 650 mg 09/16/20 20:44 09/20/20 23:56 Acetami
[2020-09-24 18:16] LABS: Glucose Point of Care 195 (65-105)
[2020-09-24] MEDS: INSULIN GLARGINE (*BKC) 100 UNITS/ML 11 UNITS SUB-Q (21:11)
[2020-09-24 22:00] VITALS: BP 133/74; PULSE 90; RESP 18; TEMP 37.3; O2SAT 98
[2020-09-24 23:36] LABS: Glucose Point of Care 210 (65-105)
[2020-09-25 05:27] VITALS: BP 134/69; PULSE 91; RESP 16; TEMP 37.1; O2SAT 100
[2020-09-25 06:41] LABS: Hematocrit 30.7 % (42.0-52.0); Hemoglobin 10.2 g/dL (14.0-18.0); Mean Corpuscular HGB Conc 33.2 g/dl (32-36); Mean Corpuscular Volume 81.2 fl (80-100); Mean Platelet Volume 9.2 fl (7.4-10.4); Platelet Count Result 381 k/mm3 (150-375); Red Blood Count 3.78 M/mm3 (4.6-6.20); Red Cell Distribution Width 11.9 % (11.5-14.5); White Blood Count 11.6 K/mm3 (4.5-10.0)
[2020-09-25 06:58] LABS: Anion Gap 6 mmol/L (8-16); Blood Urea Nitrogen 15 mg/dL (9-20); Calcium 7.9 mg/dL (8.4-10.2); Carbon Dioxide 31 mmol/L (22-30); Chloride 99 mmol/L (98-107); Estimated CRCL calculation 39 ml/min; Estimated Glomerular Filt Rate 57; Glucose 107 mg/dL (75-110); Potassium 3.5 mmol/L (3.4-5.0); Sodium 136 mmol/L (137-145)
[2020-09-25] MEDS: metFORMIN HCL 500 MG TABLET PO (08:19)
[2020-09-25] MEDS: LOSARTAN POTASSIUM 25 MG TABLET PO (08:19)
[2020-09-25] MEDS: amLODIPine BESYLATE 5 MG TABLET PO (08:19)
[2020-09-25] MEDS: SACCHAROMYCES BOULARDII 250 MG CAPSULE PO (08:19)
[2020-09-25 09:12] LABS: Glucose Point of Care 95 (65-105)
--- NOTE | 2020-09-25 11:22 | PCPTNOTE ---
The patient treatment was not able to be completed 09/25/2020. Per RN Pt is leaving [facility] and being very rude and belligerent about it. RN stated to not attempt due to it possibly aggravating the Pt more.
[2020-09-25 13:43] LABS: Glucose Point of Care 125 (65-105)
[2020-09-25 14:00] VITALS: BP 143/81; PULSE 99; RESP 16; TEMP 37.7; O2SAT 98
--- NOTE | 2020-09-25 14:39 | PM.DS ---
DS: Admitting Diagnosis Admitting Diagnosis Admitting Diagnosis: cellulitis, hyperglycemia 65-year-old male who presented to the hospital with a complaint of right foot swelling and redness that has been ongoing for the past 3 weeks. Pt wound looks, dry, intact but is painful and shallow. pt is sp debridement diabetic foot ulcer right foot with possible 5th ray amputation. pt is slowly improving has a wound vac on presently, can discharge home with IV zosyn for 34 more days. DS: Discharge Diagnosis Discharge Diagnosis (1) Osteomyelitis of ankle or foot, right, acute: Code(s): M86.171 - Other acute osteomyelitis, right ankle and foot Status: Ruled-out Assessment and Plan: -postop day 5 right foot 5th digit ray amputation by Dr. Sainz -the patient has wound cultures MSSA, ampicillin sensitive Enterococcus, group B strep isolate all of these organisms are sensitive to penicillin -antibiotics: Zosyn monotherapy for diabetic foot wound, discussed with Dr. Peter -PICC line ordered, IV antibiotics with home health, Dr. Peter will follow in clinic -MRI right foot ordered 09/23: no osteomyelitis (2) Sepsis: Qualifiers: Sepsis type: sepsis due to unspecified organism Sepsis acute organ dysfunction status: with acute organ dysfunction Severe sepsis acute organ dysfunction type: acute renal failure Acute renal failure type: unspecified Severe sepsis shock status: without septic shock Qualified Code(s): A41.9 - Sepsis, unspecified organism; R65.20 - Severe sepsis without septic shock; N17.9 - Acute kidney failure, unspecified Code(s): A41.9 - Sepsis, unspecified organism Status: Resolved Assessment and Plan: Sepsis resolved, IV antibiotics for cellultis (3) Acute renal failure: Qualifiers: Acute renal failure type: unspecified Qualified Code(s): N17.9 - Acute kidney failure, unspecified Code(s): N17.9 - Acute kidney failure, unspecified Status: Resolved Assessment and Plan: Resolved (4) Normocytic anemia: Code(s): D64.9 - Anemia, unspecified Status: Acute Assessment and Plan: stable (5) Type 2 diabetes mellitus: Qualifiers: Diabetes mellitus termite control technician insulin use: without termite control technician use Diabetes mellitus complication status: with circulatory complication Diabetes mellitus complication detail: with other circulatory complications Qualified Code(s): E11.59 - Type 2 diabetes mellitus with other circulatory complications Code(s): E11.9 - Type 2 diabetes mellitus without complications Status: Acute Assessment and Plan: -Hemoglobin A1c 12.2. -Pt ti follow up with PCP -public health educator discussed with patient in hospital about DM management and DM medications -Pt is on Lantus 11 units q.h.s, and metformin 500 mg b.i.d. (6) Acute encephalopathy: Code(s): G93.40 - Encephalopathy, unspecified Status: Resolved Assessment and Plan: -Likely infectious encephalopathy secondary to sepsis. Improved on starting IV Abx. Pt appears oriented x3 on discharge (7) Essential (primary) hypertension: Code(s): I10 - Essential (primary) hypertension Status: Acute Assessment and Plan: -Systolic blood pressure is 143/81 continue Bp medications. DS: Summary Time Spent with Patient Time attestation: Total time spent providing and/or coordinating discharge services:40 minutes Exam Narrative: Exam Narrative: - GENERAL: Pleasant male appears well - EYES: EOMI. - HENT: Moist mucous membranes. - LUNGS: Clear to auscultation bilaterally, no wheezing, rhonchi, or rales. - CARDIOVASCULAR: Regular rate and rhythm. - ABDOMEN: Soft, non-tender and non-distended. No palpable masses. - EXTREMITIES: No edema. Peripheral pulses 2+. Right lower extremity gauze and wound VAC over surgical site, status post 5th digit ray amputation. - NEUROLOGIC: No focal neurological d
[2020-09-25] MEDS: SILVERGEL (ELTA) 45 ML 1 APPLIC TOPICAL (16:15)
--- NOTE | 2020-09-25 16:15 | PC.NURSE ---
Patient refused antibiotic,refused insulin teaching and Dr Sainz went over wound care. Patient not happy wants to go home. Patient will not listen to anything nursing staff says or try to show.
--- NOTE | 2020-09-25 16:17 | PC.NURSE ---
patient setting off bed alarm, adamant that he needs to go home and that his ride is in the parking lot. iv saline lock discontinued at this time. attempted multiple times to start iv antibiotic prior to patient discharging. patient refusing iv antibiotic, stating I know that I might lose my foot and might , but I don't want that antibiotic, I want to go home. I have my master degree and do not appreciate people repeating this to me. Patient becoming irritated with staff. I attempted to go over discharge paper work with patient. Patient did not want me to review every line. I have signed too many papers already, just show me where to sign. Attempted to show patient where phone numbers and physical script for pain medications were in the paper work and unsure if patient will retain information. Did place number for floor phone number in with packet in case he would like to review anything when he has a change to review paperwork. Patient verbalized understanding.
--- NOTE | 2020-09-25 17:46 | PM.PNORT ---
Progress Note: A&P Assessment and Plan (1) Osteomyelitis of ankle or foot, right, acute: Code(s): M86.171 - Other acute osteomyelitis, right ankle and foot Status: Acute Assessment and Plan: One week status post 5th ray amputation. Patient is adamant about being discharged home today. They were not able to arrange for home wound VAC. Patient has declined further treatment here. Discussed home health with daily dressing changes using silver gel and Mepilex foam. Arrange for follow-up in [facility] wound clinic September 27. protected weight-bearing with postoperative shoe. Antibiotics as directed. Subjective Subjective Date/Time Seen: 09/25/20 15:46 patient seen and examined. Very upset about his clinical course today and plans for discharge. He does not want to pay for intravenous antibiotics. He does not want to pay for the wound VAC. He is not happy about stain to complete his intravenous antibiotic course this evening. He wants to be discharged and go home immediately. Discussed with him the need for correct care of his foot, diabetes and infection. Patient verbalizes understanding but wants to leave immediately. Exam Const: General: comfortable and no acute distress Resp: Effort & Inspection: normal respiratory effort Cardio: Rate: regular rate Rhythm: regular rhythm GI: Inspection: non-distended GI Palp: Yes Soft to palpation and No Tenderness to palpation present (GI) Skin: Wounds: wounds noted (Right Lateral Forefoot ) Other: Right foot dressing removed. Wound VAC in place. Drainage improved. Overall swelling and appearance of incision improved. Minimal erythema. Lesser toes and hallux with some atrophic skin changes but otherwise no erythema. Unable to palpate pulses. Wound VAC removed. Silver gel, Mepilex and gauze dressing applied. Neuro: Cognition (Neuro): normal cognition Speech: normal speech Other: decreased sensation RIGHT foot Extrem: Right lower extremity: lower leg (Negative Jay's Sign ) Details: no tenderness, ankle (+ankle dorsiflexion/plantarflexion ) and foot (5th ray amputation ) Details: tenderness (diffuse ), warmth (mild ) Location: of the lateral foot Location: distally, in the mid-section and at the base of the 5th metatarsal, vascular exam (palpable ) Details: dorsalis pedis pulse present and motor-sensory exam Details: light-touch abnormal Location: in the great toe, in the 2nd digit, in the 3rd digit and in the 4th digit; not in the 5th digit (absent ) Other: See skin assessment regarding right foot. Psych: Mental Status: mental status grossly normal Affect: normal affect Objective Data Vital Signs Vital Signs: Vital Signs - 24 hr 09/24/20 22:00 09/25/20 05:27 09/25/20 14:00 Temperature 99.1 F 98.8 F 99.8 F H Pulse Rate 90 91 99 Respiratory Rate 18 16 16 Blood Pressure 133/74 134/69 143/81 H Pulse Oximetry 98 100 98 Intake/Output Intake/Output: Intake & Output 09/22/20 09/23/20 09/24/20 09/25/20 23:59 23:59 23:59 23:59 Intake Total 1000 1580 1360 620 Output Total 450 1200 650 600 Balance 550 380 710 20 Meds/Results Medications: Active Medications Generic Name Dose Route Start Last Admin Trade Name Freq PRN Reason Stop Dose Admin Acetaminophen 650 mg 09/16/20 20:44 09/20/20 23:56 Acetaminophen 325 Mg Tablet PO 650 mg Q4H PRN Administration Mild Pain (1-3) or Fever Hydrocodone Bitart/Acetaminophen 1 tab 09/16/20 20:44 09/18/20 12:49 Hydrocodone/Acetaminophen (*Crx) 5-325 Mg Tablet PO 1 tab Q4H PRN Administration Pain Rated 4-6 Amlodipine Besylate 5 mg 09/22/20 11:15 09/25/20 08:19 Amlodipine Besylate 5 Mg Tablet PO 5 mg QAM ZELDA Administration Dextrose 12.5 gm 09/17/20 00:46 Dextrose 50% 25 Gm/50 Ml Syringe IV PUSH PRN PRN Hypoglycemia Protocol Glucagon 1 mg 09/17/20 00:46 Glucagon For Inj 1 Mg Vial IM PRN PRN Hypoglycemia Protocol
== END 2020-09-25 16:50 | disposition home health service (06) | DRG 854 ==
LOC: ANHED 18:43 → ANHIMU 09-17 01:36 → ANH3MEDSUR 09-18 09:15 → ANHIMU 09-30 14:15
PROVIDERS: Orthopaedic Surgery; Student in an Organized Health Care Education/Training Program; Admitting Provider Family Medicine; Emergency Provider Emergency Medicine; Visit Provider Family Medicine
PROC: 0Y6M0ZF Detachment at Right Foot, Partial 5th Ray, Open Approach (ICD-10-PCS; principal; 2020-09-18 07:30)
PROC: 0Y6M0ZF Detachment at Right Foot, Partial 5th Ray, Open Approach (ICD-10-PCS; 2020-09-18 07:30)
DX: A41.9 Sepsis, unspecified organism (principal); G93.40 Encephalopathy, unspecified; M86.171 Other acute osteomyelitis, right ankle and foot; L03.115 Cellulitis of right lower limb; N17.9 Acute kidney failure, unspecified; E11.69 Type 2 diabetes mellitus with other specified complication; R65.20 Severe sepsis without septic shock; E11.621 Type 2 diabetes mellitus with foot ulcer; L97.513 Non-pressure chronic ulcer of other part of right foot with necrosis of muscle; B95.61 Methicillin susceptible Staphylococcus aureus infection as the cause of diseases classified elsewhere; B95.2 Enterococcus as the cause of diseases classified elsewhere; B95.1 Streptococcus, group B, as the cause of diseases classified elsewhere; E11.59 Type 2 diabetes mellitus with other circulatory complications; E11.628 Type 2 diabetes mellitus with other skin complications; E11.65 Type 2 diabetes mellitus with hyperglycemia; D64.9 Anemia, unspecified; E86.0 Dehydration; I10 Essential (primary) hypertension; Z28.21 Immunization not carried out because of patient refusal
CPT/HCPCS: 36415; 36569; 73630; 73718; 80048; 80053; 80202; 81001; 82565; 83036; 83605; 85025; 85027; 85610; 85730; 86140; 87040; 87070; 87075; 87077; 87147; 87186; 87205; 88305; 88311; 93922; 96365; 97161; 99285; A9270; C1751; J0743; J1650; J1815; J2250; J2370; J2405; J2543; J2704; J3010; J3370; J7030; J7120

== ENCOUNTER 2020-09-30 13:10 | Outpatient (NON) | payer BC, SELFPAY ==
[2020-09-30 13:46] LABS: Basophils Percent Auto 0.4 % (0.2-1.2); Eosinophils Percent Auto 0.3 % (0-4.4); Hemoglobin 10.9 g/dL (14.0-18.0); Immature Granulocyte Absolute 0.04 K/mm3 (0.00-0.031); Immature Granulocyte Percent A 0.5 % (0-0.5); Lymphocytes Absolute Auto 0.72 K/mm3 (0.9-3.2); Lymphocytes Percent Auto 9.4 % (18.3-44.2); Mean Corpuscular HGB Conc 32.1 g/dl (32-36); Mean Corpuscular Hemoglobin 26.9 pg (26-34); Mean Platelet Volume 9.6 fl (7.4-10.4); Monocytes Absolute Auto 0.4 K/mm3 (0.1-0.6); Monocytes Percent Auto 5.6 % (2.6-8.5); Neutrophils Absolute Auto 6.4 K/mm3 (1.3-6.7); Neutrophils Percent Auto 83.8 % (45.5-73.1); Platelet Count Result 318 k/mm3 (150-375); Red Blood Count 4.05 M/mm3 (4.6-6.20); Red Cell Distribution Width 12.7 % (11.5-14.5); White Blood Count 7.6 K/mm3 (4.5-10.0)
[2020-09-30 14:25] LABS: Anion Gap 7 mmol/L (8-16); Blood Urea Nitrogen 26 mg/dL (9-20); CRP 16.1 mg/dL (<1.0); Calcium 8.1 mg/dL (8.4-10.2); Carbon Dioxide 27 mmol/L (22-30); Chloride 104 mmol/L (98-107); Estimated Glomerular Filt Rate 37; Glucose 103 mg/dL (75-110); Potassium 3.9 mmol/L (3.4-5.0); Sodium 138 mmol/L (137-145)
== END 2020-09-30 13:11 ==
PROVIDERS: Visit Provider Internal Medicine Infectious Disease
DX: E11.9 Type 2 diabetes mellitus without complications (principal); I10 Essential (primary) hypertension; Z45.2 Encounter for adjustment and management of vascular access device; Z48.01 Encounter for change or removal of surgical wound dressing
CPT/HCPCS: 36415; 80048; 85025; 86140

== ENCOUNTER 2020-10-04 08:56 | Inpatient (IN) | payer BC, SELFPAY ==
[2020-10-04] VITALS (7 sets, daily range): BP systolic 101–142; BP diastolic 77–87; PULSE 96–131; RESP 16–25; TEMP 36.5–38; O2SAT 93–97; BMI 21.1
--- NOTE | ~2020-10-04 | US_ITS ---
EXAMINATION: US renal BI DATE: 10/04/2020 15:47 INDICATION: Acute kidney injury TECHNIQUE: Multiple grayscale and Doppler ultrasound images of the kidneys were obtained. COMPARISON: None. FINDINGS: The right kidney measures 11.2 x 5.8 x 5.8 cm. The left kidney measures 10.1 x 6.2 x 5.8 cm . The kidneys demonstrate increased parenchymal echogenicity. There is no hydronephrosis. The bladder is normal. IMPRESSION: 1. Medical renal disease. Reviewed, dictated and finalized at location A. OON ANIMATOR IMPRESSION: 1. Medical renal disease.
--- NOTE | ~2020-10-04 | CT_ITS ---
EXAMINATION: CT abdomen pelvis wo con DATE: 10/04/2020 10:44 INDICATION: Abdominal pain. TECHNIQUE: Computed tomography (CT) of the abdomen and pelvis was performed without intravenous contr ast. Automated exposure control and iterative reconstruction technique were employed. The dose-length product was 260.65 mGy-cm. COMPARISON: None. FINDINGS: The visualized portions of the lung bases demonstrate patchy airspace and groundglass opaci ties in the lower lobes, right middle lobe, and lingula, consistent with pneumonia. No pleural effusi on. The heart size is normal. No pericardial effusion. A left upper extremity peripherally inserted c entral venous catheter (PICC) is seen with tip in the right atrium. The liver, gallbladder, spleen, p ancreas, adrenal glands, and kidneys are normal. There is no urolithiasis. The prostate is mildly enl arged. There is liquid stool in the colon suggestive of diarrhea. There are no dilated loops of bowel . The appendix is not visualized. There is a small umbilical hernia containing fat. There are no path ologically enlarged lymph nodes. There is a right inguinal hernia containing fat. There is no free in traperitoneal fluid. There is moderate osteoarthrosis of the hips. There is lumbar levocurvature and mild spondylosis. IMPRESSION: 1. Multifocal pneumonia. 2. Umbilical hernia containing fat. Right inguinal hernia containing fat. Reviewed, dictated and finalized at location B. D BANK MANAGER
--- NOTE | ~2020-10-04 | XR_ITS ---
EXAMINATION: XR chest 2V DATE: 10/06/2020 10:57 INDICATION: Pneumonia. Shortness of breath. TECHNIQUE: frontal and lateral views of the chest were obtained. COMPARISON: Chest radiograph dated 10/04/2020 FINDINGS: Patchy airspace opacities in the bilateral lower lung zones with minimal increase on the left and mor e prominent increased on the right. No pleural effusion or pneumothorax. The cardiomediastinal silhou ette is normal. Left upper extremity peripherally inserted central venous catheter (PICC) tip near th e superior cavoatrial junction. IMPRESSION: 1. Increasing patchy opacities in the bilateral lower lungs consistent with worsening pneumonia. Reviewed, dictated and finalized at location A. RGROUND DRILL OPERATOR IMPRESSION: 1. Increasing patchy opacities in the bilateral lower lungs consistent with wor sening pneumonia.
--- NOTE | ~2020-10-04 | XR_ITS ---
XR chest 1V portable DATE: 10/04/2020 09:30 INDICATION: Fever TECHNIQUE: Portable AP chest on 10/04/2020 at 0931 hours COMPARISON: 09/25/2020 portable AP chest at 1451 hours FINDINGS: Left upper extremity PIC catheter tip overlies the caudal aspect of the superior vena cava. Normal heart size. No hilar or mediastinal enlargement. No pleural effusion or pulmonary vascular co ngestion or pneumothorax. There are patchy infiltrates in the right mid to lower lung and left lower lobe. The right-sided infi ltrate appears moderately improved since 11/26/2019, left lower lobe infiltrate stable. IMPRESSION: Moderate improvement of right lung infiltrate, stable left lower lobe infiltrate since Reviewed, dictated and finalized at location A. LSMITH HELPER IMPRESSION: Moderate improvement of right lung infiltrate, stable left lower lo be infiltrate since 09/25/2020
--- NOTE | ~2020-10-04 | XR_ITS ---
EXAMINATION: XR chest 1V portable DATE: 10/11/2020 05:36 INDICATION: Shortness of breath. TECHNIQUE: A single frontal view of the chest was obtained. COMPARISON: Chest 2 views 10/06/2020, CT abdomen and pelvis 10/04/2020 FINDINGS: There are patchy airspace opacities in the mid and lower lung zones. No pleural effusion or pneumothorax. The heart size is normal. A left upper extremity peripherally inserted central venous catheter (PICC) is seen with tip at the superior cavoatrial junction. IMPRESSION: 1. Stable airspace opacities in the mid and lower lung zones, consistent with pneumonia. Reviewed, dictated and finalized at location A. ENGINEER IMPRESSION: 1. Stable airspace opacities in the mid and lower lung zones, consistent with p neumonia.
--- NOTE | ~2020-10-04 | CT_ITS ---
EXAMINATION: CT brain wo con DATE: 10/09/2020 09:44 INDICATION: Confusion. TECHNIQUE: Computed tomography (CT) of the head was performed without intravenous contrast. The mA wa s adjusted according to patient size. Iterative reconstruction technique was employed. The dose-lengt h product was 681.00 mGy-cm. COMPARISON: None FINDINGS: There is no intracranial hemorrhage, acute infarction, or abnormal intracranial mass lesion . There are scattered areas of low attenuation in the cerebral white matter and left cerebellar white matter. The ventricles are normal in size. The orbits are normal. There is mild mucosal thickening i n the ethmoid sinuses. The mastoid air cells are normal. IMPRESSION: 1. Mild nonspecific cerebral and cerebellar white matter disease, which likely represents chronic sma ll vessel ischemic disease. Reviewed, dictated and finalized at location A. P BLENDER IMPRESSION: 1. Mild nonspecific cerebral and cerebellar white matter disease, which likely represents chronic small vessel ischemic disease.
--- NOTE | 2020-10-04 09:09 | ECG_ITS ---
Measurements Intervals [place] Rate: 129 P: 21 IN: 143 QRS: 43 QRSD: 76 T: 0 QT: 290 QTc: 426 Interpretive Statements SINUS TACHYCARDIA BORDERLINE ST-T WAVE ABNORMALITY- INFERIOR LEADS BASELINE ARTIFACT- II, III, AVF, V1, V3 ABNORMAL ECG Electronically Signed On 10-04-2020 10:13:45 [employer] by Uriel Sheriff D.O.
--- NOTE | 2020-10-04 09:19 | PC.NURSE ---
Blood draw and fluids held at this time until patient gets PICC line confirmation
[2020-10-04 09:20] LABS: Glucose Point of Care 93 (65-105)
--- NOTE | 2020-10-04 09:34 | ED.GENADULT ---
HPI - General Adult General Chief complaint: Weakness Stated complaint: weakness Time Seen by Provider: 10/04/20 09:13 Source: RN notes reviewed History of Present Illness HPI narrative: Patient presents to emergency department from home for weakness. History of the patient is that he has had a recent right toe amputation is currently on daily Zosyn through PICC line in his left arm per the family the patient's been increasingly weak over the past 1 week and they talked his PCP recommended come in for IV fluids. Per the family the patient is not been eating or drinking as well and the patient denies having any pain he denies any fevers or chills chest pain shortness of breath abdominal pain nausea vomiting or any other symptoms Related Data Allergies Allergy/AdvReac Type Severity Reaction Status Date / Time No Known Allergies Allergy Verified 10/04/20 09:21 Review of Systems Review of Systems: Narrative: Gen.: Denies fevers or chills ENT: Denies congestion Respiratory: Denies shortness of breath or cough CV: Denies chest pain or palpitations GI: Denies abdominal pain nausea, emesis or diarrhea denies burning, urgency, frequency or hematuria Musculoskeletal: Denies back pain or muscle pain Neuro: Denies numbness, tingling, reports weakness Skin: Denies rash Except as documented, all other systems reviewed and negative [facility] Past Medical History Medical History Diabetic foot ulcer No significant past medical history Surgical History Surgical History No history of previous surgery Social History Social History Social History: 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 He lives with his . They have 4 adult children and 8 grandchildren. Smoking status: Never smoker Alcohol intake: never Substance use: never Substance use type: does not use Additional occupation/education comments: First Aid Attendant Gender identity (if verbalized by the patient): Male Spiritual care concerns: No Exam Narrative: Exam Narrative: APPEARANCE: No acute distress, nontoxic, resting in bed EYES: EOMI HEENT: Normocephalic, atraumatic, OMM RESPIRATORY: No respiratory distress Clear to auscultation bilaterally with no rhonchi wheezing or rales. CARDIOVASCULAR: Regular rate and rhythm without murmurs rubs or gallops. ABDOMINAL: Soft, nontender, nondistended, no rebound or guarding MUSCULOSKELETAl: Moves all extremities. No clubbing, cyanosis or edema. PICC line in left upper extremity NEURO: Awake and alert. Following commands, speech normal, no focal deficits SKIN:: Warm, dry. No rashes lesions or abrasions PSYCHIATRIC: Normal affect/mood, Course Course Emergency Course: Called and discussed with wound care the patient's wound was evaluated wound care and Dr. Sainz this morning no signs of infection at that time Discussed with family states the patient gets his Zosyn every night he last had his Zosyn throughout the night last night Called discussed with CANDIDA Post presentation work-up agrees with admission at this time request consultation to nephrology. We discussed the patient's chest x-ray she does agree with Covid swab at this time recommends no change in antibiotics Discussed with Dr. St presentation work-up he agrees with consult at this time. Discussed current Zosyn use and he will evaluate the patient and further advise patient is not due for any antibiotics until tonight Discussed with patient and family results of workup and diagnosis. Discussed need for admission. Patient and family understand and agree to current treatment plan : Discussed Dr. Sainz. He states he does not need to be consult at this time as patient not scheduled for any further follow-up for another week but states he would recomme
[2020-10-04] MEDS: SODIUM CHLORIDE 0.9% IV 1,000 ML 999 ML IV CONT ×2 (10:02→13:03)
[2020-10-04 10:10] LABS: Basophils Percent Auto 0.4 % (0.2-1.2); Eosinophils Absolute Auto 0.1 K/mm3 (0-0.3); Eosinophils Percent Auto 0.7 % (0-4.4); Hematocrit 34.9 % (42.0-52.0); Hemoglobin 11.3 g/dL (14.0-18.0); Immature Granulocyte Absolute 0.06 K/mm3 (0.00-0.031); Immature Granulocyte Percent A 0.6 % (0-0.5); Lymphocytes Absolute Auto 0.64 K/mm3 (0.9-3.2); Lymphocytes Percent Auto 6.3 % (18.3-44.2); Mean Corpuscular HGB Conc 32.4 g/dl (32-36); Mean Corpuscular Hemoglobin 27.4 pg (26-34); Mean Corpuscular Volume 84.5 fl (80-100); Mean Platelet Volume 9.8 fl (7.4-10.4); Monocytes Absolute Auto 0.5 K/mm3 (0.1-0.6); Monocytes Percent Auto 5.1 % (2.6-8.5); Neutrophils Absolute Auto 8.8 K/mm3 (1.3-6.7); Neutrophils Percent Auto 86.9 % (45.5-73.1); Platelet Count Result 248 k/mm3 (150-375); Red Blood Count 4.13 M/mm3 (4.6-6.20); Red Cell Distribution Width 13.5 % (11.5-14.5); White Blood Count 10.1 K/mm3 (4.5-10.0)
[2020-10-04 10:20] LABS: INR 1.3; Prothrombin Time 16.7 Seconds (11.1-14.7)
[2020-10-04 10:21] LABS: Partial Thromboplastin Time 44.2 SECONDS (22.3-36.8)
[2020-10-04 10:26] LABS: Alanine Aminotransferase 41 U/L (4-50); Albumin Level 3.4 g/dL (3.5-5.1); Alkaline Phosphatase 121 U/L (38-126); Anion Gap 11 mmol/L (8-16); Aspartate Amino Transferase 86 U/L (17-59); Bilirubin,Total 0.6 mg/dL (0.2-1.3); Blood Urea Nitrogen 68 mg/dL (9-20); Calcium 8.4 mg/dL (8.4-10.2); Carbon Dioxide 24 mmol/L (22-30); Chloride 112 mmol/L (98-107); Estimated CRCL calculation 12 ml/min; Estimated Glomerular Filt Rate 13; Glucose 111 mg/dL (75-110); Potassium 4.4 mmol/L (3.4-5.0); Sodium 147 mmol/L (137-145)
--- NOTE | 2020-10-04 11:03 | PC.NURSE ---
Patient asked for urine at this time, patient will attempt later, declines straight cath at this time
[2020-10-04 11:35] LABS: Add Urine Microscopic? YES; Appearance Urine Cloudy (Clear); Bacteria Urine Trace /hpf; Bilirubin Urine Negative (Negative); Blood Urine 2+ (Negative); Color Urine Yellow (Yellow); Glucose Urine UA Negative (Negative); Ketones Urine Negative (Negative); Leukocyte Esterase Ur Negative LEU/UL (Negative); Mucus Urine Rare /lpf; Nitrate Urine Negative (Negative); Protein Urine 2+ mg/dL (Negative); RBC Urine 21-50 /hpf (0-2); Specific Grav Ur 1.017 (1.001-1.035); Urobilinogen Urine Negative mg/dL (<2.0)
[2020-10-04 12:35] LABS: Lactic Acid Reflex 1.5 mmol/L (0.7-2.1)
[2020-10-04] MEDS: SODIUM CHLORIDE 0.9% IV 1,000 ML 125 ML IV CONT (14:51)
[2020-10-04] MEDS: SILVERGEL (ELTA) 45 ML 1 APPLIC TOPICAL (14:53)
--- NOTE | 2020-10-04 14:55 | PM.IMHP ---
H&P: HPI History of Present Illness Date/Time: 10/04/20 14:55 Chief complaint: Weakness. Narrative: John Mendoza is a 65-year-old male with hypertension and insulin-dependent type 2 diabetes mellitus who presented to the emergency department earlier today with complaints of weakness. He is known to the hospitalist service with a recent admission on September 16, 2020 for sepsis secondary to infected right foot ulcer, at which time he was diagnosed with new onset diabetes (hemoglobin A1c of 12.2%) as well as hypertension. He underwent right 5th ray amputation per Dr. Sainz and he has been receiving IV Zosyn at home which is scheduled through October 29, 2020. Today he was seen in follow-up with the wound clinic and he did not relate any complaints to them, however after his appointment he then presented to the emergency department with complaints of weakness, found to have acute kidney injury. I reviewed his chart and it looks like he was started on several new medications during his recent hospitalization which include the Zosyn, Lantus, metformin, losartan, and amlodipine. It is difficult to get a good history from the patient. While I was in the room with him, he was supine in bed and did not open his eyes. He answered questions curtly, sometimes not at all, and did not elaborate. From what I can gather, he has not had great oral intake for the past week or so although he denies significant nausea and vomiting. He states compliance with his home medication. He has not noticed a change in urine output and denies hematuria, urgency, hesitancy, and frequency. He has had no symptoms of pneumonia and was very surprised when I told him about that finding on imaging today. He denies fever, chills, and sweats. It does not sound as though he has had any cold or flu symptoms. No known COVID exposure. Review of Systems Review of Systems: Narrative: Very difficult to obtain history from the aged gentleman as he seemed irritable with my pertinent questions. He would not elaborate and was unable to provide me with any meaningful history. [facility] Past Medical History Medical History (Updated 10/04/20 @ 15:04 by Sejal Fagan PA-C) Chronic anemia Diabetic ulcer of right foot (~08/2020) Hypertension Insulin dependent type 2 diabetes mellitus Hemoglobin A1c was 12.2% in August 2020. Osteomyelitis (~08/2020) Right 5th metatarsal osteomyelitis, status post ray amputation. 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 He lives with his and they have 4 adult children and 8 grandchildren. He is a lifelong nonsmoker and denies alcohol and illicit substance use. His , Mitchell, is his surrogate decision maker and he wishes to be a full code. Spiritual care concerns: No Meds Home Medications and Allergies Home Medications Medication Instructions Recorded Confirmed Type foam bandage [Mepilex] #30 ea 09/25/20 10/04/20 Rx insulin glargine [Lantus U-100 11 units SUBCUT HS 90 Days #1 vial 09/25/20 10/04/20 Rx Insulin] [id number] 13.5 g IV DAILY 34 Days #00993 ml 09/25/20 10/04/20 Rx [Zosyn in dextrose (iso-osm)] insulin syringe-needle U-100 [BD #100 ea 09/26/20 10/04/20 Rx Insulin Syringe] Allergies Allergy/AdvReac Type Severity Reaction Status Date / Time No Known Allergies Allergy Verified 10/04/20 09:21 Vital Signs Vital Signs - 24 hr 10/04/20 09:05 10/04/20 09:09 10/04/20 10:03 Temperature 100.4 F H Pulse Rate 131 H 129 H 122 H Respirat
--- NOTE | 2020-10-04 15:37 | PM.CNNEP ---
Assessment and Plan Assessment and plan (1) Acute kidney injury: Code(s): N17.9 - Acute kidney failure, unspecified Status: Acute Assessment and Plan: etiology not clear possibly medication related (new meds = losartan, zosyn, metformin) - ARB and metformin on hold - consider changing antibiotic (Zosyn) to another agent -- acute interstitial nephritis is a possibility infection related (pneumonia by imaging and known osteomyelitis volume depletion (has poor oral intake) check renal ultrasound and urine electroytes including urine eosinophils trial of IVF hydration follow I/Os and repeat labs (2) Osteomyelitis of ankle or foot, right, acute: Code(s): M86.171 - Other acute osteomyelitis, right ankle and foot Status: Ruled-out Assessment and Plan: s/p surgery last admission may need to discuss with Infectious Disease use of another antibiotic (3) Multifocal pneumonia: Code(s): J18.9 - Pneumonia, unspecified organism Status: Acute Assessment and Plan: as noted by admission imaging surprising since he was already on Zosyn prior to admission possible viral etiology?? (4) Essential (primary) hypertension: Code(s): I10 - Essential (primary) hypertension Status: Acute Assessment and Plan: seems reasonable at this time follow trend since holding ARB (5) Anemia: Code(s): D64.9 - Anemia, unspecified Status: Acute Assessment and Plan: probably due to a combination of MEAGAN, CKD, and acute illness follow H/H for now no need for ESAs as of yet (6) Diabetes: Code(s): E11.9 - Type 2 diabetes mellitus without complications Status: Chronic Assessment and Plan: follow accucheks on SSI and Lantus Will continue to follow. History of Present Illness Reason for Consult Consult date: 10/04/20 Reason for consult: acute renal failure Chief Complaint Chief complaint: Weakness. History of Present Illness Narrative: The patient is not a very good historian so a lot of the information I have obtained is from review of the electronic medical record as well as my discussion with the ER physician earlier today. The patient is a 65-year-old AA male With a past medical history as outlined below who presented to the emergency room at [facility] earlier today with complaints of generalized weakness. The patient was just recently hospitalized several weeks ago for a infected right foot ulcer that was thought to be secondary to new onset diabetes. He was also diagnosed with hypertension at that time as well. For treatment of this wound he underwent a right 5th ray amputation by Orthopedics and was apparently noted that he had some evidence of underlying osteomyelitis as well. He had a PICC line placed and was arranged for IV Zosyn at home for a total of six weeks. He apparently was just seen in the wound care clinic and did not have any acute complaints but as already mentioned, he presented to the ER with his complaints of weakness. Workup and evaluation emergency room demonstrated the patient to be hemodynamically stable and in no acute distress other than his sensation fatigue/weakness. Routine blood test demonstrated clear evidence of acute kidney injury in comparison to his labs on discharge several weeks ago. His chest x-ray was somewhat suggestive of an early pneumonia although he has had no symptoms compatible with that diagnosis. The patient does report some decreased oral intake but no overt nausea and vomiting. He reports no change in his urinary habits or any complaints with regard to hematuria urgency, has not see, or increased frequency. Given these laboratory abnormalities and his acute subjective complaints, he was admitted the hospital for further evaluation and therapy. Renal consultation was requested due to his acute kidney injury/acute renal failure. from rev
[2020-10-04 16:16] LABS: Hemoglobin A1C 11.5 % (<5.7)
[2020-10-04 16:19] LABS: Anion Gap 9 mmol/L (8-16); Blood Urea Nitrogen 67 mg/dL (9-20); Calcium 7.5 mg/dL (8.4-10.2); Carbon Dioxide 23 mmol/L (22-30); Chloride 115 mmol/L (98-107); Creatine Kinase 41 U/L (55-170); Estimated CRCL calculation 11 ml/min; Estimated Glomerular Filt Rate 12; Glucose 83 mg/dL (75-110); Magnesium 2.9 mg/dL (1.6-2.3); Potassium 4.4 mmol/L (3.4-5.0); Sodium 147 mmol/L (137-145)
--- NOTE | 2020-10-04 18:10 | PC.NURSE ---
Patient states that no staff has been in to see in for the past 3 hours. However, after I finished the patient's admission, I have been called in to the room multiple times to stop the IV pump from beeping. I have had 2 different discussions with the patient discussing that he needs to leave his arm extended in order to not occlude the IV. I also was called into the room around 1630 and the patient requested for me to bring his belonging to his bed so he could get into his bag. The patient's bed alarm has gone off 3 separate times which has required staff to step into the room to turn it off.
[2020-10-04 19:42] LABS: Creatinine Urine 100.4 mg/dL
[2020-10-04 19:43] LABS: Creatinine Urine 100.3 mg/dL; Total Protein Urine Random 129 mg/dL; Ur Ttl Prot Creatinine Ratio 1.29 mg/mg (0-0.20)
[2020-10-04 19:44] LABS: Sodium Urine Random 54 meq/L
[2020-10-04 21:06] LABS: Glucose Point of Care 78 (65-105)
[2020-10-04 23:21] LABS: SARS-CoV-2 RNA PCR Negative
[2020-10-05] VITALS (8 sets, daily range): BP systolic 108–161; BP diastolic 72–94; PULSE 117–132; RESP 20; TEMP 36.8–38.3; O2SAT 94–100
[2020-10-05] MEDS: SODIUM CHLORIDE 0.45% 1,000 ML 75 ML IV CONT ×2 (01:10→20:40)
[2020-10-05 01:26] LABS: Anion Gap 12 mmol/L (8-16); Blood Urea Nitrogen 68 mg/dL (9-20); Calcium 7.6 mg/dL (8.4-10.2); Carbon Dioxide 19 mmol/L (22-30); Chloride 118 mmol/L (98-107); Estimated CRCL calculation 11 ml/min; Estimated Glomerular Filt Rate 12; Glucose 69 mg/dL (75-110); Sodium 149 mmol/L (137-145)
[2020-10-05 06:44] LABS: Basophils Percent Auto 0.2 % (0.2-1.2); Eosinophils Absolute Auto 0.1 K/mm3 (0-0.3); Eosinophils Percent Auto 1.4 % (0-4.4); Immature Granulocyte Absolute 0.05 K/mm3 (0.00-0.031); Immature Granulocyte Percent A 0.6 % (0-0.5); Lymphocytes Absolute Auto 0.69 K/mm3 (0.9-3.2); Lymphocytes Percent Auto 7.9 % (18.3-44.2); Mean Corpuscular HGB Conc 32.3 g/dl (32-36); Mean Corpuscular Hemoglobin 26.7 pg (26-34); Mean Corpuscular Volume 82.9 fl (80-100); Mean Platelet Volume 9.5 fl (7.4-10.4); Monocytes Absolute Auto 0.4 K/mm3 (0.1-0.6); Neutrophils Absolute Auto 7.4 K/mm3 (1.3-6.7); Neutrophils Percent Auto 84.9 % (45.5-73.1); Platelet Count Result 224 k/mm3 (150-375); Red Blood Count 3.74 M/mm3 (4.6-6.20); Red Cell Distribution Width 13.5 % (11.5-14.5); White Blood Count 8.8 K/mm3 (4.5-10.0)
[2020-10-05 06:59] LABS: Anion Gap 11 mmol/L (8-16); Blood Urea Nitrogen 67 mg/dL (9-20); Calcium 7.7 mg/dL (8.4-10.2); Carbon Dioxide 20 mmol/L (22-30); Chloride 118 mmol/L (98-107); Estimated CRCL calculation 11 ml/min; Estimated Glomerular Filt Rate 12; Glucose 83 mg/dL (75-110); Phosphorus 4.7 mg/dL (2.5-4.5); Potassium 4.2 mmol/L (3.4-5.0); Sodium 149 mmol/L (137-145)
[2020-10-05 07:00] LABS: Anion Gap 9 mmol/L (8-16); Blood Urea Nitrogen 66 mg/dL (9-20); Calcium 7.7 mg/dL (8.4-10.2); Carbon Dioxide 21 mmol/L (22-30); Chloride 118 mmol/L (98-107); Estimated CRCL calculation 11 ml/min; Estimated Glomerular Filt Rate 12; Glucose 84 mg/dL (75-110); Potassium 4.2 mmol/L (3.4-5.0); Sodium 148 mmol/L (137-145)
[2020-10-05 07:20] LABS: Complement C3 116 mg/dL (88-165)
[2020-10-05 07:59] LABS: Hepatitis B Surface Anti Res Negative
[2020-10-05 10:09] LABS: Glucose Point of Care 82 (65-105)
[2020-10-05 11:22] LABS: HAV RESULT Negative (Negative); Hepatitis B Core IgM Result Negative (Negative); Hepatitis B Surface Antigen Negative (Negative); Hepatitis C Virus Antibody Negative (Negative)
[2020-10-05] MEDS: SILVERGEL (ELTA) 45 ML 1 APPLIC TOPICAL (11:53)
--- NOTE | 2020-10-05 12:23 | P.PNNP_ITS ---
Progress Note: A&P Assessment and Plan (1) Acute kidney injury: Code(s): N17.9 - Acute kidney failure, unspecified Status: Acute Assessment and Plan: * The patient has acute kidney injury. * His baseline creatinine is around 1.3. * This has progressively worsened since 09/25 when it was 1.5. * He has no peripheral eosinophilia. * His sodium is a bit elevated suggesting decreased fluid intake. * Urine electrolytes are non pre renal * renal ultrasound shows increased renal echogenicity but no hydronephrosis. * etiology not clear * Consider allergic interstitial nephritis. I agree with trying to stop the Zosyn if possible. * He is not eating very well and so could have Some pre renal azotemia. He is getting half-normal saline at 75 an hour. Will increase the rate to 125. * He has pulmonary infiltrates on his chest x-ray and a pulmonary renal syndrome is possible but would be difficult to treat with his foot situation.. * Will continue IV fluids. Will check serology and immunofixation. * Continue to treat the foot. (2) Osteomyelitis of ankle or foot, right, acute: Code(s): M86.171 - Other acute osteomyelitis, right ankle and foot Status: Ruled-out Assessment and Plan: * s/p surgery last admission * may need to discuss with Infectious Disease use of another antibiotic (3) Multifocal pneumonia: Code(s): J18.9 - Pneumonia, unspecified organism Status: Acute Assessment and Plan: * as noted by admission imaging * surprising since he was already on Zosyn prior to admission * possible viral etiology? COVID is negative. (4) Essential (primary) hypertension: Code(s): I10 - Essential (primary) hypertension Status: Acute Assessment and Plan: * seems reasonable at this time * follow trend since holding ARB (5) Anemia: Code(s): D64.9 - Anemia, unspecified Status: Acute Assessment and Plan: * probably due to a combination of MEAGAN, CKD, and acute illness * follow H/H for now (6) Diabetes: Code(s): E11.9 - Type 2 diabetes mellitus without complications Status: Chronic Assessment and Plan: * follow accucheks * on SSI and Lantus Will continue to follow. Subjective Date/time seen: 10/05/20 12:23 Interval history: The patient is feeling about the same today. Not much of an appetite. He did not eat any breakfast. I asked about this and he said that he did not get what he wanted. He did not call down to make in order either because nobody came upstairs to ask him what he wanted. I asked him to use the menu and call for something he wants because he needs the calories to get his foot better. Review of Systems Cardiovascular: Cardiovascular: Reports no additional cardiovascular complaints Respiratory: Respiratory: Reports no additional respiratory complaints Gastrointestinal: Gastrointestinal: Reports no additional gastrointestinal complaints Genitourinary: Genitourinary: Reports no additional male genitourinary complaints Exam Narrative: Exam Narrative: WDWN in NAD skin no rash head ncat lungs clear cor reg no rub abd BS+ nontender and soft ext no edema . Bandage on the foot. The nurses changing it now.. Objective Data Vital Signs Vital Signs: Vital Signs - 24 hr 10/04/20 12:58 10/04/20 13:36 10/04/20 17:29 Temperature 36.6 C
--- NOTE | 2020-10-05 12:23 | PM.PNNEP ---
Progress Note: A&P Assessment and Plan (1) Acute kidney injury: Code(s): N17.9 - Acute kidney failure, unspecified Status: Acute Assessment and Plan: The patient has acute kidney injury. His baseline creatinine is around 1.3. This has progressively worsened since 09/25 when it was 1.5. He has no peripheral eosinophilia. His sodium is a bit elevated suggesting decreased fluid intake. Urine electrolytes are non pre renal renal ultrasound shows increased renal echogenicity but no hydronephrosis. etiology not clear Consider allergic interstitial nephritis. I agree with trying to stop the Zosyn if possible. He is not eating very well and so could have Some pre renal azotemia. He is getting half-normal saline at 75 an hour. Will increase the rate to 125. He has pulmonary infiltrates on his chest x-ray and a pulmonary renal syndrome is possible but would be difficult to treat with his foot situation.. Will continue IV fluids. Will check serology and immunofixation. Continue to treat the foot. (2) Osteomyelitis of ankle or foot, right, acute: Code(s): M86.171 - Other acute osteomyelitis, right ankle and foot Status: Ruled-out Assessment and Plan: s/p surgery last admission may need to discuss with Infectious Disease use of another antibiotic (3) Multifocal pneumonia: Code(s): J18.9 - Pneumonia, unspecified organism Status: Acute Assessment and Plan: as noted by admission imaging surprising since he was already on Zosyn prior to admission possible viral etiology? COVID is negative. (4) Essential (primary) hypertension: Code(s): I10 - Essential (primary) hypertension Status: Acute Assessment and Plan: seems reasonable at this time follow trend since holding ARB (5) Anemia: Code(s): D64.9 - Anemia, unspecified Status: Acute Assessment and Plan: probably due to a combination of MEAGAN, CKD, and acute illness follow H/H for now (6) Diabetes: Code(s): E11.9 - Type 2 diabetes mellitus without complications Status: Chronic Assessment and Plan: follow accucheks on SSI and Lantus Will continue to follow. Subjective Date/time seen: 10/05/20 12:23 Interval history: The patient is feeling about the same today. Not much of an appetite. He did not eat any breakfast. I asked about this and he said that he did not get what he wanted. He did not call down to make in order either because nobody came upstairs to ask him what he wanted. I asked him to use the menu and call for something he wants because he needs the calories to get his foot better. Review of Systems Cardiovascular: Cardiovascular: Reports no additional cardiovascular complaints Respiratory: Respiratory: Reports no additional respiratory complaints Gastrointestinal: Gastrointestinal: Reports no additional gastrointestinal complaints Genitourinary: Genitourinary: Reports no additional male genitourinary complaints Exam Narrative: Exam Narrative: WDWN in NAD skin no rash head ncat lungs clear cor reg no rub abd BS+ nontender and soft ext no edema . Bandage on the foot. The nurses changing it now.. Objective Data Vital Signs Vital Signs: Vital Signs - 24 hr 10/04/20 12:58 10/04/20 13:36 10/04/20 17:29 Temperature 36.6 C Pulse Rate 100 96 102 H Respiratory Rate 22 H 20 16 Blood Pressure 101/77 120/80 138/85 Pulse Oximetry 97 94 97 10/04/20 20:00 10/05/20 00:00 10/05/20 06:00 Temperature 36.5 C 36.8 C 36.8 C Pulse Rate 111 H 120 H 121 H Respiratory Rate 20 20 20 Blood Pressure 142/82 H 149/87 H 158/87 H Pulse Oximetry 96 94 95 Intake/Output Intake/Output: Intake & Output 10/02/20 10/03/20 10/04/20 10/05/20 23:59 23:59 23:59 23:59 Intake Total 1345 878 Output Total 300 Balance 1345 578 Meds/Results Medications: Active Medications Generic
[2020-10-05 12:26] LABS: Glucose Point of Care 106 (65-105)
--- NOTE | 2020-10-05 13:51 | PM.IMPN ---
Progress Note: A&P Assessment and Plan (1) Acute kidney injury: Code(s): N17.9 - Acute kidney failure, unspecified Status: Acute Assessment and Plan: Will continue to monitor, nephro eval (2) Dehydration: Code(s): E86.0 - Dehydration Status: Acute Assessment and Plan: Iv fluids (3) Multifocal pneumonia: Code(s): J18.9 - Pneumonia, unspecified organism Status: Acute Assessment and Plan: On antiibiotics (4) Insulin dependent type 2 diabetes mellitus: Code(s): E11.9 - Type 2 diabetes mellitus without complications; Z79.4 - shelter (current) use of insulin Status: Acute Assessment and Plan: Stable on meds (5) Hypertension: Code(s): I10 - Essential (primary) hypertension Status: Inactive Assessment and Plan: Stable on meds (6) Chronic anemia: Code(s): D64.9 - Anemia, unspecified Status: Acute Assessment and Plan: Stable Additional Plan The patient has been admitted to the hospitalist service for further evaluation of acute kidney injury. Etiology of such is not entirely clear at this time but is most likely multifactorial in etiology. It does not sound as though he has had good oral intake since his recent hospitalization and his labs do argue that he is probably dehydrated. He has been started on several medications recently including piperacillin-tazobactam, losartan, metformin, amlodipine, and Lantus. At this time will continue with his Zosyn as I think this is less likely a culprit however will ask Dr. St for his opinion. Losartan and metformin have been placed on hold. Renal ultrasound has been ordered for further evaluation as well as some other labs. Multifocal pneumonia is noted on CT of the abdomen and pelvis and given the current pandemic he has been tested for COVID-19 and will remain in isolation pending results. Pollock catheter will be inserted for strict monitoring of I/0. Will repeat renal function and sodium levels later today to ensure they are improving. Initiate sliding scale insulin, Accu-Cheks, and hypoglycemic protocol. Blood pressures were reviewed and they are not at goal. Will need to monitor these closely as losartan is on hold given acute kidney injury. Nephrology consult noted Monitor creatinine. Subjective Date/time seen: 10/05/20 13:51 Interval history: Patient was seen during the morning rounds today. No sob or chest pain, feels weak and tired. Review of Systems Review of Systems: All systems reviewed & are unremarkable except as noted in HPI and below (the history and physical exam.) Exam Narrative: Exam Narrative: General: Well-developed male supine in bed. Weight: 64.9 kg. BMI: 21.1. HEENT: He is wearing a stocking cap. He did not open his eyes. Oral mucosa is tacky. Oropharynx was not visualized as he did not open his mouth very far for me to examine. Neck: Supple. No obvious JVD. Respiratory: Diminished anteriorly secondary to poor effort. No obvious adventitious lung sounds. Cardiovascular: Regular rate and rhythm with S1-S2. Gastrointestinal: Abdomen is soft, nontender, and nondistended with positive bowel sounds. Skin: Warm and dry. Extremities: No cyanosis, clubbing, or edema. Radial and pedal pulses intact. I did not remove his foot dressing for examination as it was recently attended to and debrided earlier today. Please see EMR for photos of the wound taken today. Neurological: Alert. Speech is clear. No facial asymmetry. Cranial nerves 2-12 appear to be grossly intact however is limited as the patient would not open his eyes as above. He was noted to move all extremities without obvious deficit, but he was not really cooperative. Psychiatric: Odd mood and flat affect. Difficult historian. Objective Data Vital Signs Vital Signs: Vital Signs - 24 hr 10/04/20 17:29 10/04/20 20:00 10/05/20 00:00 Temperature 36.6 C 36.5 C 36.8 C
[2020-10-05 17:39] LABS: Glucose Point of Care 79 (65-105)
[2020-10-05] MEDS: ACETAMINOPHEN 325 MG TABLET 650 MG PO (20:39)
[2020-10-05] MEDS: INSULIN GLARGINE (*BKC) 100 UNITS/ML 11 UNITS SUB-Q (20:40)
[2020-10-05 21:19] LABS: Glucose Point of Care 118 (65-105)
[2020-10-06 05:44] LABS: Potassium 4.5 mmol/L (3.4-5.0)
[2020-10-06 06:00] VITALS: BP 109/58; PULSE 97; RESP 20; TEMP 37.1; O2SAT 99
[2020-10-06 06:08] LABS: Albumin Level 2.9 g/dL (3.5-5.1); Anion Gap 7 mmol/L (8-16); Blood Urea Nitrogen 67 mg/dL (9-20); Calcium 7.9 mg/dL (8.4-10.2); Carbon Dioxide 23 mmol/L (22-30); Chloride 119 mmol/L (98-107); Estimated CRCL calculation 13 ml/min; Estimated Glomerular Filt Rate 15; Glucose 168 mg/dL (75-110); Sodium 149 mmol/L (137-145)
--- NOTE | 2020-10-06 08:59 | PM.IMPN ---
Progress Note: A&P Assessment and Plan (1) Acute kidney injury: Code(s): N17.9 - Acute kidney failure, unspecified Status: Acute Assessment and Plan: Will continue to monitor, nephro eval (2) Dehydration: Code(s): E86.0 - Dehydration Status: Acute Assessment and Plan: Iv fluids (3) Multifocal pneumonia: Code(s): J18.9 - Pneumonia, unspecified organism Status: Acute Assessment and Plan: On antiibiotics (4) Insulin dependent type 2 diabetes mellitus: Code(s): E11.9 - Type 2 diabetes mellitus without complications; Z79.4 - [facility] (current) use of insulin Status: Acute Assessment and Plan: Stable on meds (5) Hypertension: Code(s): I10 - Essential (primary) hypertension Status: Inactive Assessment and Plan: Stable on meds (6) Chronic anemia: Code(s): D64.9 - Anemia, unspecified Status: Acute Assessment and Plan: Stable Additional Plan The patient has been admitted to the hospitalist service for further evaluation of acute kidney injury. Etiology of such is not entirely clear at this time but is most likely multifactorial in etiology. It does not sound as though he has had good oral intake since his recent hospitalization and his labs do argue that he is probably dehydrated. He has been started on several medications recently including piperacillin-tazobactam, losartan, metformin, amlodipine, and Lantus. At this time will continue with his Zosyn as I think this is less likely a culprit however will ask Dr. St for his opinion. Losartan and metformin have been placed on hold. Renal ultrasound has been ordered for further evaluation as well as some other labs. Multifocal pneumonia is noted on CT of the abdomen and pelvis and given the current pandemic he has been tested for COVID-19 and will remain in isolation pending results. Pollock catheter will be inserted for strict monitoring of I/0. Will repeat renal function and sodium levels later today to ensure they are improving. Initiate sliding scale insulin, Accu-Cheks, and hypoglycemic protocol. Blood pressures were reviewed and they are not at goal. Will need to monitor these closely as losartan is on hold given acute kidney injury. Nephrology consult noted Monitor creatinine. Repeat xray chest Creatinine improving. Subjective Date/time seen: 10/06/20 08:59 Interval history: Patient was seen during the morning rounds today. No sob or chest pain, feels weak and tired. No new complaints Review of Systems Review of Systems: All systems reviewed & are unremarkable except as noted in HPI and below (the history and physical exam.) Exam Narrative: Exam Narrative: General: Well-developed male supine in bed. Weight: 64.9 kg. BMI: 21.1. HEENT: He is wearing a stocking cap. He did not open his eyes. Oral mucosa is tacky. Oropharynx was not visualized as he did not open his mouth very far for me to examine. Neck: Supple. No obvious JVD. Respiratory: Diminished anteriorly secondary to poor effort. No obvious adventitious lung sounds. Cardiovascular: Regular rate and rhythm with S1-S2. Gastrointestinal: Abdomen is soft, nontender, and nondistended with positive bowel sounds. Skin: Warm and dry. Extremities: No cyanosis, clubbing, or edema. Radial and pedal pulses intact. I did not remove his foot dressing for examination as it was recently attended to and debrided earlier today. Please see EMR for photos of the wound taken today. Neurological: Alert. Speech is clear. No facial asymmetry. Cranial nerves 2-12 appear to be grossly intact however is limited as the patient would not open his eyes as above. He was noted to move all extremities without obvious deficit, but he was not really cooperative. Psychiatric: Odd mood and flat affect. Difficult historian. Objective Data Vital Signs Vital Signs: Vital Signs - 24 hr 10/05/20 14:00 10/05
[2020-10-06 09:11] LABS: Glucose Point of Care 147 (65-105)
--- NOTE | 2020-10-06 09:45 | P.PNNP_ITS ---
Progress Note: A&P Assessment and Plan (1) Acute kidney injury: Code(s): N17.9 - Acute kidney failure, unspecified Status: Acute Assessment and Plan: * The patient has acute kidney injury. * His baseline creatinine is around 1.3. * This has progressively worsened since 09/25 when it was 1.5. * He has no peripheral eosinophilia. he has no rash. * His sodium is a bit elevated suggesting decreased fluid intake. * Urine electrolytes are non pre renal * renal ultrasound shows increased renal echogenicity but no hydronephrosis. * etiology not clear * His creatinine improved today. * Will continue IV fluids. * Continue to treat the foot. * Follow up on the serology and paraprotein investigations. (2) Osteomyelitis of ankle or foot, right, acute: Code(s): M86.171 - Other acute osteomyelitis, right ankle and foot Status: Ruled-out Assessment and Plan: * s/p surgery last admission (3) Multifocal pneumonia: Code(s): J18.9 - Pneumonia, unspecified organism Status: Acute Assessment and Plan: * as noted by admission imaging * surprising since he was already on Zosyn prior to admission * possible viral etiology? COVID is negative. (4) Essential (primary) hypertension: Code(s): I10 - Essential (primary) hypertension Status: Acute Assessment and Plan: * Systolic only 109. * follow trend since holding ARB (5) Anemia: Code(s): D64.9 - Anemia, unspecified Status: Acute Assessment and Plan: * probably due to a combination of MEAGAN, CKD, and acute illness * follow H/H for now (6) Diabetes: Code(s): E11.9 - Type 2 diabetes mellitus without complications Status: Chronic Assessment and Plan: * follow accucheks * on SSI and Lantus Will continue to follow. Subjective Date/time seen: 10/06/20 09:45 Interval history: The patient is feeling about the same today. Thirsty and drinking water. Review of Systems Cardiovascular: Cardiovascular: Reports no additional cardiovascular complaints Respiratory: Respiratory: Reports no additional respiratory complaints Gastrointestinal: Gastrointestinal: Reports no additional gastrointestinal complaints Genitourinary: Genitourinary: Reports no additional male genitourinary complaints Exam Narrative: Exam Narrative: WDWN in NAD skin no rash head ncat lungs clear Bilaterally cor reg no rub or gallops abd BS+ nontender and soft ext no edema . Bandage on the foot. The nurses changing it now.. Objective Data Vital Signs Vital Signs: Vital Signs - 24 hr 10/05/20 14:00 10/05/20 18:25 10/05/20 20:39 Temperature 38.3 C H 37.8 C H 38.1 C H Pulse Rate 132 H Respiratory Rate 20 Blood Pressure 161/94 H Pulse Oximetry 96 10/05/20 21:45 10/05/20 22:00 10/06/20 06:00 Temperature 36.9 C 36.8 C 37.1 C Pulse Rate 117 H 97 Respiratory Rate 20 20 Blood Pressure 108/72 109/58 L Pulse Oximetry 100 99 Intake/Output Intake/Output: Intake & Output 10/03/20 10/04/20 10/05/20 10/06/20 23:59 23:59 23:59 23:59 Intake Total 1345 1932 100 Output Total 1700 850 Balance 1345 232 -750 Meds/Result
--- NOTE | 2020-10-06 09:45 | PM.PNNEP ---
Progress Note: A&P Assessment and Plan (1) Acute kidney injury: Code(s): N17.9 - Acute kidney failure, unspecified Status: Acute Assessment and Plan: The patient has acute kidney injury. His baseline creatinine is around 1.3. This has progressively worsened since 09/25 when it was 1.5. He has no peripheral eosinophilia. he has no rash. His sodium is a bit elevated suggesting decreased fluid intake. Urine electrolytes are non pre renal renal ultrasound shows increased renal echogenicity but no hydronephrosis. etiology not clear His creatinine improved today. Will continue IV fluids. Continue to treat the foot. Follow up on the serology and paraprotein investigations. (2) Osteomyelitis of ankle or foot, right, acute: Code(s): M86.171 - Other acute osteomyelitis, right ankle and foot Status: Ruled-out Assessment and Plan: s/p surgery last admission (3) Multifocal pneumonia: Code(s): J18.9 - Pneumonia, unspecified organism Status: Acute Assessment and Plan: as noted by admission imaging surprising since he was already on Zosyn prior to admission possible viral etiology? COVID is negative. (4) Essential (primary) hypertension: Code(s): I10 - Essential (primary) hypertension Status: Acute Assessment and Plan: Systolic only 109. follow trend since holding ARB (5) Anemia: Code(s): D64.9 - Anemia, unspecified Status: Acute Assessment and Plan: probably due to a combination of MEAGAN, CKD, and acute illness follow H/H for now (6) Diabetes: Code(s): E11.9 - Type 2 diabetes mellitus without complications Status: Chronic Assessment and Plan: follow accucheks on SSI and Lantus Will continue to follow. Subjective Date/time seen: 10/06/20 09:45 Interval history: The patient is feeling about the same today. Thirsty and drinking water. Review of Systems Cardiovascular: Cardiovascular: Reports no additional cardiovascular complaints Respiratory: Respiratory: Reports no additional respiratory complaints Gastrointestinal: Gastrointestinal: Reports no additional gastrointestinal complaints Genitourinary: Genitourinary: Reports no additional male genitourinary complaints Exam Narrative: Exam Narrative: WDWN in NAD skin no rash head ncat lungs clear Bilaterally cor reg no rub or gallops abd BS+ nontender and soft ext no edema . Bandage on the foot. The nurses changing it now.. Objective Data Vital Signs Vital Signs: Vital Signs - 24 hr 10/05/20 14:00 10/05/20 18:25 10/05/20 20:39 Temperature 38.3 C H 37.8 C H 38.1 C H Pulse Rate 132 H Respiratory Rate 20 Blood Pressure 161/94 H Pulse Oximetry 96 10/05/20 21:45 10/05/20 22:00 10/06/20 06:00 Temperature 36.9 C 36.8 C 37.1 C Pulse Rate 117 H 97 Respiratory Rate 20 20 Blood Pressure 108/72 109/58 L Pulse Oximetry 100 99 Intake/Output Intake/Output: Intake & Output 10/03/20 10/04/20 10/05/20 10/06/20 23:59 23:59 23:59 23:59 Intake Total 1345 1932 100 Output Total 1700 850 Balance 1345 232 -750 Meds/Results Medications: Active Medications Generic Name Dose Route Start Last Admin Trade Name Freq PRN Reason Stop Dose Admin Acetaminophen 650 mg 10/05/20 19:41 10/05/20 20:39 Acetaminophen 325 Mg Tablet PO 650 mg Q6H PRN Administration Mild Pain (1-3) or Fever Dextrose 12.5 gm 10/05/20 00:45 Dextrose 50% 25 Gm/50 Ml Syringe IV PUSH PRN PRN Hypoglycemia Protocol Glucagon 1 mg 10/05/20 00:45 Glucagon For Inj 1 Mg Vial IM PRN PRN Hypoglycemia Protocol Glucose 15 gm 10/05/20 00:45 Glucose Oral Gel 15 Gm Of Glucse In 37.5 Gm Tube PO PRN PRN Hypoglycemia Protocol Dextrose 1,000 mls @ 100 mls/hr 10/05/20 00:45 Dextrose 5% 1,000 Ml IVPB PRN PRN Hypoglycemi
[2020-10-06] MEDS: SODIUM CHLORIDE 0.45% 1,000 ML 75 ML IV CONT (13:30)
[2020-10-06 14:00] VITALS: BP 115/61; PULSE 80; RESP 18; TEMP 36.7; O2SAT 95
[2020-10-06 14:25] LABS: Glucose Point of Care 125 (65-105)
[2020-10-06 17:24] LABS: Glucose Point of Care 139 (65-105)
[2020-10-06 18:26] LABS: Glucose Point of Care 122 (65-105)
[2020-10-06] MEDS: SILVERGEL (ELTA) 45 ML 1 APPLIC TOPICAL (19:19)
--- NOTE | 2020-10-06 19:19 | PC.NURSE ---
dsg to rt lateral foot changed. Cleansed with NS, applied silver gel and then mepilex transfer, and abd pad and kerlix wrap followed with his sock and dorco shoe.
[2020-10-06] MEDS: INSULIN GLARGINE (*BKC) 100 UNITS/ML 11 UNITS SUB-Q (20:30)
[2020-10-06 20:47] LABS: Glucose Point of Care 117 (65-105)
[2020-10-06 22:00] VITALS: BP 152/84; PULSE 102; RESP 22; TEMP 37.7; O2SAT 97
[2020-10-07 04:18] LABS: Basophils Percent Auto 0.1 % (0.2-1.2); Eosinophils Absolute Auto 0.1 K/mm3 (0-0.3); Eosinophils Percent Auto 0.7 % (0-4.4); Hematocrit 29.9 % (42.0-52.0); Hemoglobin 9.6 g/dL (14.0-18.0); Immature Granulocyte Absolute 0.07 K/mm3 (0.00-0.031); Lymphocytes Absolute Auto 0.44 K/mm3 (0.9-3.2); Lymphocytes Percent Auto 6.2 % (18.3-44.2); Mean Corpuscular HGB Conc 32.1 g/dl (32-36); Mean Corpuscular Hemoglobin 26.7 pg (26-34); Mean Corpuscular Volume 83.1 fl (80-100); Mean Platelet Volume 9.8 fl (7.4-10.4); Monocytes Absolute Auto 0.3 K/mm3 (0.1-0.6); Monocytes Percent Auto 3.8 % (2.6-8.5); Neutrophils Absolute Auto 6.3 K/mm3 (1.3-6.7); Neutrophils Percent Auto 88.2 % (45.5-73.1); Platelet Count Result 201 k/mm3 (150-375); Red Cell Distribution Width 13.9 % (11.5-14.5); White Blood Count 7.1 K/mm3 (4.5-10.0)
[2020-10-07 04:33] LABS: Albumin Level 2.9 g/dL (3.5-5.1); Anion Gap 7 mmol/L (8-16); Blood Urea Nitrogen 61 mg/dL (9-20); Calcium 7.8 mg/dL (8.4-10.2); Carbon Dioxide 22 mmol/L (22-30); Chloride 121 mmol/L (98-107); Estimated CRCL calculation 13 ml/min; Estimated Glomerular Filt Rate 16; Glucose 125 mg/dL (75-110); Phosphorus 3.1 mg/dL (2.5-4.5); Potassium 4.4 mmol/L (3.4-5.0); Sodium 150 mmol/L (137-145)
[2020-10-07 05:00] VITALS: BP 147/81; PULSE 112; RESP 22; TEMP 37.2; O2SAT 94
[2020-10-07] MEDS: SODIUM CHLORIDE 0.45% 1,000 ML 75 ML IV CONT (06:30)
[2020-10-07 09:12] LABS: Glucose Point of Care 111 (65-105)
[2020-10-07 13:21] LABS: Glucose Point of Care 128 (65-105)
[2020-10-07 14:00] VITALS: BP 128/75; PULSE 108; RESP 20; TEMP 36.9; O2SAT 96
--- NOTE | 2020-10-07 14:20 | PM.IMPN ---
Progress Note: A&P Assessment and Plan (1) Acute kidney injury: Code(s): N17.9 - Acute kidney failure, unspecified Status: Acute Assessment and Plan: Will continue to monitor, recent debridement and wound vac theraphy on right foot (2) Dehydration: Code(s): E86.0 - Dehydration Status: Acute Assessment and Plan: Iv fluids, creat is 4.5, sodium is 150 consult nephrology (3) Multifocal pneumonia: Code(s): J18.9 - Pneumonia, unspecified organism Status: Acute Assessment and Plan: iv zosyn (4) Insulin dependent type 2 diabetes mellitus: Code(s): E11.9 - Type 2 diabetes mellitus without complications; Z79.4 - alf (current) use of insulin Status: Acute Assessment and Plan: Stable on meds (5) Hypertension: Code(s): I10 - Essential (primary) hypertension Status: Inactive Assessment and Plan: Stable on meds (6) Chronic anemia: Code(s): D64.9 - Anemia, unspecified Status: Acute Assessment and Plan: Stable Subjective Date/time seen: 10/07/20 14:20 Interval history: 65-year-old male with hypertension and insulin-dependent type 2 diabetes mellitus who presented to the emergency department earlier today with complaints of weakness. pt appears weak and tired today, i will order physical therapy for him. Review of Systems Review of Systems: All systems reviewed & are unremarkable except as noted in HPI and below Exam Narrative: Exam Narrative: General: Well-developed male, somewhat unclear with stories Neck: Supple. Respiratory: clear to auscultation Cardiovascular: Regular rate and rhythm with S1-S2. Gastrointestinal: Abdomen is soft, nontender, and nondistended with positive bowel sounds. Skin: Warm and dry. Extremities: pt has a soft boot on . Neurological: Alert. Speech is clear. No facial asymmetry. Psychiatric: Odd mood and flat affect. Difficult historian. Objective Data Vital Signs Vital Signs: Vital Signs - 24 hr 10/06/20 22:00 10/07/20 05:00 10/07/20 14:00 Temperature 37.7 C H 37.2 C 36.9 C Pulse Rate 102 H 112 H 108 H Respiratory Rate 22 H 22 H 20 Blood Pressure 152/84 H 147/81 H 128/75 Pulse Oximetry 97 94 96 Intake/Output Intake/Output: Intake & Output 10/04/20 10/05/20 10/06/20 10/07/20 23:59 23:59 23:59 23:59 Intake Total 1345 1932 1510 1410 Output Total 1700 850 800 Balance 1345 232 660 610 Meds/Results Medications: Active Medications Generic Name Dose Route Start Last Admin Trade Name Freq PRN Reason Stop Dose Admin Acetaminophen 650 mg 10/05/20 19:41 10/05/20 20:39 Acetaminophen 325 Mg Tablet PO 650 mg Q6H PRN Administration Mild Pain (1-3) or Fever Dextrose 12.5 gm 10/05/20 00:45 Dextrose 50% 25 Gm/50 Ml Syringe IV PUSH PRN PRN Hypoglycemia Protocol Glucagon 1 mg 10/05/20 00:45 Glucagon For Inj 1 Mg Vial IM PRN PRN Hypoglycemia Protocol Glucose 15 gm 10/05/20 00:45 Glucose Oral Gel 15 Gm Of Glucse In 37.5 Gm Tube PO PRN PRN Hypoglycemia Protocol Dextrose 1,000 mls @ 100 mls/hr 10/05/20 00:45 Dextrose 5% 1,000 Ml IVPB PRN PRN Hypoglycemia Protocol Sodium Chloride 1,000 mls @ 75 mls/hr 10/05/20 00:45 10/07/20 06:30 Sodium Chloride 0.45% IV CONT 75 mls/hr .[id number] ZELDA Administration Piperacillin Sod/Tazobactam Sod 2.25 gm in 50 mls @ 100 mls/hr 10/06/20 18:00 10/07/20 12:06 Zosyn 2.25 Gm/D5w 50 Ml IVPB Infused Q6HR ZELDA Infusion Insulin Aspart 3 - 6 units 10/05/20 08:00 10/07/20 13:23 Insulin Aspart (*Bkc) 100 Units/Ml SUB-Q Not Given TIDWM [facility] Protocol Insulin Glargine 11 units 10/05/20 21:00 10/06/20 20:30 Insulin Glargine (*Bkc) 100 Units/Ml SUB-Q 11 units HS ZELDA Administration Silver Nitrate 1 applic 10/04/20 09:00 10/06/20 19:19 Silvergel (Elta) 45 Ml TOPICAL 1 appl
--- NOTE | 2020-10-07 15:15 | PM.PNORT ---
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 He was readmitted on October 04 for weakness and an acute kidney injury. Orthopedic consult requested due to ongoing care for right lateral diabetic foot ulcer. We are currently performing daily dressing changes with silver gel, transfer and covering dry. Kerlex. Sutures intact. We will plan for suture removal in the next 1-2 days. IV antibiotics through October 29. Continue postop shoe with ambulation. PWB on heel. Fall risk with weakness. Elevate right lower extremity on pillows We will continue to monitor Subjective Subjective Date/Time Seen: 10/07/20 15:15 Patient resting comfortably in bed. Awake. No new concerns regarding his foot at this time. Answering questions appropriately. Review of Systems Review of Systems: All systems reviewed & are unremarkable except as noted in HPI and below Constitutional: Constitutional: Reports fatigue and Reports weakness Cardiovascular: Cardiovascular: Denies chest pain, Reports pedal edema and Denies lightheadedness Respiratory: Respiratory: Denies cough and Denies dyspnea Gastrointestinal: Gastrointestinal: Denies nausea and Denies vomiting Genitourinary: Genitourinary: Reports no additional male genitourinary complaints Musculoskeletal: Musculoskeletal: Reports as per HPI Exam Const: General: comfortable and no acute distress Resp: Effort & Inspection: normal respiratory effort Cardio: Rate: regular rate Rhythm: regular rhythm GI: Inspection: non-distended GI Palp: Yes Soft to palpation and No Tenderness to palpation present (GI) Skin: Wounds: wounds noted (Right Lateral Forefoot ) Other: Right lateral foot dressing removed. Mild serosanguineous drainage. Minimal erythema. Surrounding incisional wound dehiscence with necrotic cap covering which is dry. Open area over the lateral 5th ray with soft tissue. No necrosis. Sutures intact. 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 Slough and devitalized tissue noted at the distal extent of the wound. Sutures intact at the more proximal aspect of the lateral midfoot. Psych: Mental Status: mental status grossly normal Affect: normal affect Objective Data Vital Signs Vital Signs: Vital Signs - 24 hr 10/06/20 22:00 10/07/20 05:00 10/07/20 14:00 Temperature 37.7 C H 37.2 C 36.9 C Pulse Rate 102 H 112 H 108 H Respiratory Rate 22 H 22 H 20 Blood Pressure 152/84 H 147/81 H 128/75 Pulse Oximetry 97 94 96 Intake/Output Intake/Output: Intake & Output 10/04/20 10/05/20 10/06/20 10/07/20 23:59 23:59 23:59 23:59 Intake Total 1345 1932 1510 1410 Output Total 1700 850 800 Balance 1345 232 660 610 Meds/Results Medications: Active Medications Generic Name Dose Route Start Last Admin Trade Name Freq PRN Reason Stop Dose Admin Acetaminophen 650 mg 10/05/20 19:41 10/05/20 20:39 Acetaminophen 325 Mg Tablet PO 650 mg Q6H
[2020-10-07] MEDS: DEXTROSE 5%/0.45% SOD CHL 1,000 ML 100 ML IV CONT (15:24)
[2020-10-07] MEDS: SILVERGEL (ELTA) 45 ML 1 APPLIC TOPICAL (15:27)
[2020-10-07 17:52] LABS: Glucose Point of Care 106 (65-105)
--- NOTE | 2020-10-07 18:13 | P.PNNP_ITS ---
Progress Note: A&P Assessment and Plan (1) Acute kidney injury: Code(s): N17.9 - Acute kidney failure, unspecified Status: Acute Assessment and Plan: * The patient has acute kidney injury. * His baseline creatinine is around 1.3. * This has progressively worsened since 09/25 when it was 1.5. * He has no peripheral eosinophilia. he has no rash. * His sodium is a bit elevated suggesting decreased fluid intake. * Urine electrolytes are non pre renal * renal ultrasound shows increased renal echogenicity but no hydronephrosis. * etiology not clear * His creatinine improved again today. * Will continue IV fluids. * Continue to treat the foot. * Follow up on the serology and paraprotein investigations. (2) Osteomyelitis of ankle or foot, right, acute: Code(s): M86.171 - Other acute osteomyelitis, right ankle and foot Status: Ruled-out Assessment and Plan: * s/p surgery last admission (3) Multifocal pneumonia: Code(s): J18.9 - Pneumonia, unspecified organism Status: Acute Assessment and Plan: * as noted by admission imaging * surprising since he was already on Zosyn prior to admission * possible viral etiology? COVID is negative. (4) Essential (primary) hypertension: Code(s): I10 - Essential (primary) hypertension Status: Acute Assessment and Plan: * blood pressure is up and down today, anywhere from 109-152. * Will follow this along. If consistently high we can fold his antihypertensives back in. (5) Anemia: Code(s): D64.9 - Anemia, unspecified Status: Acute Assessment and Plan: * probably due to a combination of MEAGAN, CKD, and acute illness * follow H/H for now (6) Diabetes: Code(s): E11.9 - Type 2 diabetes mellitus without complications Status: Chronic Assessment and Plan: * follow accucheks * on SSI and Lantus Subjective Date/time seen: 10/07/20 18:13 Interval history: The patient is feeling about the same today. No chest pain or shortness of breath Review of Systems Cardiovascular: Cardiovascular: Reports no additional cardiovascular complaints Respiratory: Respiratory: Reports no additional respiratory complaints Gastrointestinal: Gastrointestinal: Reports no additional gastrointestinal complaints Genitourinary: Genitourinary: Reports no additional male genitourinary complaints Exam Narrative: Exam Narrative: WDWN in NAD skin no rash or subcu nodules head ncat lungs clear Bilaterally cor reg no rub or gallops abd BS+ nontender and soft ext no edema . Bandage on the foot. The nurses changing it now.. Objective Data Vital Signs Vital Signs: Vital Signs - 24 hr 10/06/20 22:00 10/07/20 05:00 10/07/20 14:00 Temperature 37.7 C H 37.2 C 36.9 C Pulse Rate 102 H 112 H 108 H Respiratory Rate 22 H 22 H 20 Blood Pressure 152/84 H 147/81 H 128/75 Pulse Oximetry 97 94 96 Intake/Output Intake/Output: Intake & Output 10/04/20 10/05/20 10/06/20 10/07/20 23:59 23:59 23:59 23:59 Intake Total 1345 1932 1510 2525 Output Total 3930 175 1977 Balance 1345 573 934 3206 Meds/Results Medications: Active Medications Generic Name Dose Route Start Last Adm
--- NOTE | 2020-10-07 18:13 | PM.PNNEP ---
Progress Note: A&P Assessment and Plan (1) Acute kidney injury: Code(s): N17.9 - Acute kidney failure, unspecified Status: Acute Assessment and Plan: The patient has acute kidney injury. His baseline creatinine is around 1.3. This has progressively worsened since 09/25 when it was 1.5. He has no peripheral eosinophilia. he has no rash. His sodium is a bit elevated suggesting decreased fluid intake. Urine electrolytes are non pre renal renal ultrasound shows increased renal echogenicity but no hydronephrosis. etiology not clear His creatinine improved again today. Will continue IV fluids. Continue to treat the foot. Follow up on the serology and paraprotein investigations. (2) Osteomyelitis of ankle or foot, right, acute: Code(s): M86.171 - Other acute osteomyelitis, right ankle and foot Status: Ruled-out Assessment and Plan: s/p surgery last admission (3) Multifocal pneumonia: Code(s): J18.9 - Pneumonia, unspecified organism Status: Acute Assessment and Plan: as noted by admission imaging surprising since he was already on Zosyn prior to admission possible viral etiology? COVID is negative. (4) Essential (primary) hypertension: Code(s): I10 - Essential (primary) hypertension Status: Acute Assessment and Plan: blood pressure is up and down today, anywhere from 109-152. Will follow this along. If consistently high we can fold his antihypertensives back in. (5) Anemia: Code(s): D64.9 - Anemia, unspecified Status: Acute Assessment and Plan: probably due to a combination of MEAGAN, CKD, and acute illness follow H/H for now (6) Diabetes: Code(s): E11.9 - Type 2 diabetes mellitus without complications Status: Chronic Assessment and Plan: follow accucheks on SSI and Lantus Subjective Date/time seen: 10/07/20 18:13 Interval history: The patient is feeling about the same today. No chest pain or shortness of breath Review of Systems Cardiovascular: Cardiovascular: Reports no additional cardiovascular complaints Respiratory: Respiratory: Reports no additional respiratory complaints Gastrointestinal: Gastrointestinal: Reports no additional gastrointestinal complaints Genitourinary: Genitourinary: Reports no additional male genitourinary complaints Exam Narrative: Exam Narrative: WDWN in NAD skin no rash or subcu nodules head ncat lungs clear Bilaterally cor reg no rub or gallops abd BS+ nontender and soft ext no edema . Bandage on the foot. The nurses changing it now.. Objective Data Vital Signs Vital Signs: Vital Signs - 24 hr 10/06/20 22:00 10/07/20 05:00 10/07/20 14:00 Temperature 37.7 C H 37.2 C 36.9 C Pulse Rate 102 H 112 H 108 H Respiratory Rate 22 H 22 H 20 Blood Pressure 152/84 H 147/81 H 128/75 Pulse Oximetry 97 94 96 Intake/Output Intake/Output: Intake & Output 10/04/20 10/05/20 10/06/20 10/07/20 23:59 23:59 23:59 23:59 Intake Total 1345 1932 1510 2525 Output Total 9603 560 5231 Balance 1345 868 290 1777 Meds/Results Medications: Active Medications Generic Name Dose Route Start Last Admin Trade Name Freq PRN Reason Stop Dose Admin Acetaminophen 650 mg 10/05/20 19:41 10/05/20 20:39 Acetaminophen 325 Mg Tablet PO 650 mg Q6H PRN Administration Mild Pain (1-3) or Fever Dextrose 12.5 gm 10/05/20 00:45 Dextrose 50% 25 Gm/50 Ml Syringe IV PUSH PRN PRN Hypoglycemia Protocol Glucagon 1 mg 10/05/20 00:45 Glucagon For Inj 1 Mg Vial IM PRN PRN Hypoglycemia Protocol Glucose 15 gm 10/05/20 00:45 Glucose Oral Gel 15 Gm Of Glucse In 37.5 Gm Tube PO PRN PRN Hypoglycemia Protocol Dextrose 1,000 mls @ 100 mls/hr 10/05/20 00:45 Dextrose 5% 1,000 Ml IVPB PRN PRN Hypoglycemia Protocol Piperacillin Sod
--- NOTE | 2020-10-07 21:16 | PC.NURSE ---
Patient's brother, Marcus and sister called to request information regarding the patient. This RN explained that because of HIPAA laws, I am not allowed to give them information. Patient's sister yelling I understand HIPAA laws. I am going to call administration about this tomorrow This RN apologized for the inconvenience and offered to transfer the family into the patient's phone so they could speak with him. They declined. At this time the only person listed as a contact is Mitchell Mendoza.
[2020-10-07] MEDS: INSULIN GLARGINE (*BKC) 100 UNITS/ML 11 UNITS SUB-Q (21:34)
[2020-10-07] MEDS: CENTRAL LINE FLUSH 10 ML IV PUSH (21:34)
[2020-10-07 21:41] LABS: Glucose Point of Care 207 (65-105)
[2020-10-07 22:00] VITALS: BP 147/88; PULSE 100; RESP 20; TEMP 36.7; O2SAT 98
[2020-10-08] MEDS: DEXTROSE 5%/0.45% SOD CHL 1,000 ML 100 ML IV CONT (03:49)
[2020-10-08 05:45] LABS: Hemoglobin 8.9 g/dL (14.0-18.0); Mean Corpuscular HGB Conc 31.8 g/dl (32-36); Mean Corpuscular Hemoglobin 26.5 pg (26-34); Mean Corpuscular Volume 83.3 fl (80-100); Mean Platelet Volume 9.8 fl (7.4-10.4); Platelet Count Result 173 k/mm3 (150-375); Red Blood Count 3.36 M/mm3 (4.6-6.20); Red Cell Distribution Width 13.9 % (11.5-14.5); White Blood Count 7.3 K/mm3 (4.5-10.0)
[2020-10-08 06:00] VITALS: BP 110/57; PULSE 90; RESP 18; TEMP 36.9; O2SAT 100
[2020-10-08 06:06] LABS: Albumin Level 2.6 g/dL (3.5-5.1); Anion Gap 3 mmol/L (8-16); Blood Urea Nitrogen 56 mg/dL (9-20); Calcium 7.4 mg/dL (8.4-10.2); Carbon Dioxide 24 mmol/L (22-30); Chloride 120 mmol/L (98-107); Estimated CRCL calculation 15 ml/min; Estimated Glomerular Filt Rate 18; Glucose 272 mg/dL (75-110); Phosphorus 3.4 mg/dL (2.5-4.5); Potassium 4.3 mmol/L (3.4-5.0); Sodium 147 mmol/L (137-145)
[2020-10-08] MEDS: CENTRAL LINE FLUSH 10 ML IV PUSH ×3 (07:34→20:47)
[2020-10-08 07:38] LABS: Glucose Point of Care 273 (65-105)
[2020-10-08] MEDS: SILVERGEL (ELTA) 45 ML 1 APPLIC TOPICAL (07:48)
[2020-10-08] MEDS: INSULIN ASPART (*BKC) 100 UNITS/ML SUB-Q ×2 (08:00→12:24)
--- NOTE | 2020-10-08 10:25 | PC.NURSE ---
Patient stated to me that we do not need to talk to his , or give them any extra information about his health care. I confirmed that the patient does not want his notified of any information. Dr. Valdivia was standing in the room with me when the patient stated this and he confirmed this as well for her. Care coordination notified.
--- NOTE | 2020-10-08 11:10 | P.PNNP_ITS ---
Progress Note: A&P Assessment and Plan (1) Acute kidney injury: Code(s): N17.9 - Acute kidney failure, unspecified Status: Acute Assessment and Plan: * The patient has acute kidney injury. * His baseline creatinine is around 1.3. * This has progressively worsened since 09/25 when it was 1.5. * He has no peripheral eosinophilia. he has no rash. * His sodium is a bit elevated suggesting decreased fluid intake. * Urine electrolytes are non pre renal * renal ultrasound shows increased renal echogenicity but no hydronephrosis. * etiology not clear * His creatinine improved again today to 4.1. * Will continue IV fluids. * Continue to treat the foot. * SM, DNA, C3, C4 okay. Continue to watch for pending serology and paraprotein investigations. (2) Osteomyelitis of ankle or foot, right, acute: Code(s): M86.171 - Other acute osteomyelitis, right ankle and foot Status: Ruled-out Assessment and Plan: * s/p surgery last admission (3) Multifocal pneumonia: Code(s): J18.9 - Pneumonia, unspecified organism Status: Acute Assessment and Plan: * as noted by admission imaging * on antibiotics. * no pulm sx. (4) Essential (primary) hypertension: Code(s): I10 - Essential (primary) hypertension Status: Acute Assessment and Plan: * blood pressure is up and down today, anywhere from 109-152. * Will follow this along. If consistently high we can fold his antihypertensives back in. (5) Anemia: Code(s): D64.9 - Anemia, unspecified Status: Acute Assessment and Plan: * probably due to a combination of MEAGAN, CKD, and acute illness * hb down a bit. * start epo. (6) Diabetes: Code(s): E11.9 - Type 2 diabetes mellitus without complications Status: Chronic Assessment and Plan: * follow accucheks * on SSI and Lantus Subjective Date/time seen: 10/08/20 11:10 Interval history: The patient is in good spirits. No chest pain or shortness of breath urinating fine. Review of Systems Cardiovascular: Cardiovascular: Reports no additional cardiovascular complaints Respiratory: Respiratory: Reports no additional respiratory complaints Gastrointestinal: Gastrointestinal: Reports no additional gastrointestinal complaints Genitourinary: Genitourinary: Reports no additional male genitourinary complaints Exam Narrative: Exam Narrative: WDWN in NAD skin no rash or subcu nodules head ncat lungs clear to ausc cor reg no rub or gallops abd BS+ nontender and soft ext no edema . Bandage on the foot. The nurses changing it now.. Objective Data Vital Signs Vital Signs: Vital Signs - 24 hr 10/07/20 14:00 10/07/20 22:00 10/08/20 06:00 Temperature 36.9 C 36.7 C 36.9 C Pulse Rate 108 H 100 90 Respiratory Rate 20 20 18 Blood Pressure 128/75 147/88 H 110/57 L Pulse Oximetry 96 98 100 Intake/Output Intake/Output: Intake & Output 10/05/20 10/06/20 10/07/20 10/08/20 23:59 23:59 23:59 23:59 Intake Total 1932 1510 2525 1150 Output Total 0779 595 9715 600 Balance 604 106 6542 550 Meds/Results Medications: Active Medications Generic Name Dose Route Start Last Admin
--- NOTE | 2020-10-08 11:10 | PM.PNNEP ---
Progress Note: A&P Assessment and Plan (1) Acute kidney injury: Code(s): N17.9 - Acute kidney failure, unspecified Status: Acute Assessment and Plan: The patient has acute kidney injury. His baseline creatinine is around 1.3. This has progressively worsened since 09/25 when it was 1.5. He has no peripheral eosinophilia. he has no rash. His sodium is a bit elevated suggesting decreased fluid intake. Urine electrolytes are non pre renal renal ultrasound shows increased renal echogenicity but no hydronephrosis. etiology not clear His creatinine improved again today to 4.1. Will continue IV fluids. Continue to treat the foot. SM, DNA, C3, C4 okay. Continue to watch for pending serology and paraprotein investigations. (2) Osteomyelitis of ankle or foot, right, acute: Code(s): M86.171 - Other acute osteomyelitis, right ankle and foot Status: Ruled-out Assessment and Plan: s/p surgery last admission (3) Multifocal pneumonia: Code(s): J18.9 - Pneumonia, unspecified organism Status: Acute Assessment and Plan: as noted by admission imaging on antibiotics. no pulm sx. (4) Essential (primary) hypertension: Code(s): I10 - Essential (primary) hypertension Status: Acute Assessment and Plan: blood pressure is up and down today, anywhere from 109-152. Will follow this along. If consistently high we can fold his antihypertensives back in. (5) Anemia: Code(s): D64.9 - Anemia, unspecified Status: Acute Assessment and Plan: probably due to a combination of MEAGAN, CKD, and acute illness hb down a bit. start epo. (6) Diabetes: Code(s): E11.9 - Type 2 diabetes mellitus without complications Status: Chronic Assessment and Plan: follow accucheks on SSI and Lantus Subjective Date/time seen: 10/08/20 11:10 Interval history: The patient is in good spirits. No chest pain or shortness of breath urinating fine. Review of Systems Cardiovascular: Cardiovascular: Reports no additional cardiovascular complaints Respiratory: Respiratory: Reports no additional respiratory complaints Gastrointestinal: Gastrointestinal: Reports no additional gastrointestinal complaints Genitourinary: Genitourinary: Reports no additional male genitourinary complaints Exam Narrative: Exam Narrative: WDWN in NAD skin no rash or subcu nodules head ncat lungs clear to ausc cor reg no rub or gallops abd BS+ nontender and soft ext no edema . Bandage on the foot. The nurses changing it now.. Objective Data Vital Signs Vital Signs: Vital Signs - 24 hr 10/07/20 14:00 10/07/20 22:00 10/08/20 06:00 Temperature 36.9 C 36.7 C 36.9 C Pulse Rate 108 H 100 90 Respiratory Rate 20 20 18 Blood Pressure 128/75 147/88 H 110/57 L Pulse Oximetry 96 98 100 Intake/Output Intake/Output: Intake & Output 10/05/20 10/06/20 10/07/20 10/08/20 23:59 23:59 23:59 23:59 Intake Total 1932 1510 2525 1150 Output Total 8714 729 1145 600 Balance 604 777 6296 550 Meds/Results Medications: Active Medications Generic Name Dose Route Start Last Admin Trade Name Freq PRN Reason Stop Dose Admin Acetaminophen 650 mg 10/05/20 19:41 10/05/20 20:39 Acetaminophen 325 Mg Tablet PO 650 mg Q6H PRN Administration Mild Pain (1-3) or Fever Dextrose 12.5 gm 10/05/20 00:45 Dextrose 50% 25 Gm/50 Ml Syringe IV PUSH PRN PRN Hypoglycemia Protocol Glucagon 1 mg 10/05/20 00:45 Glucagon For Inj 1 Mg Vial IM PRN PRN Hypoglycemia Protocol Glucose 15 gm 10/05/20 00:45 Glucose Oral Gel 15 Gm Of Glucse In 37.5 Gm Tube PO PRN PRN Hypoglycemia Protocol Dextrose 1,000 mls @ 100 mls/hr 10/05/20 00:45 Dextrose 5% 1,000 Ml IVPB PRN PRN Hypoglycemia Protocol Piperacillin Sod/Tazobactam Sod 2.25 gm in 50 m
[2020-10-08 12:50] LABS: Glucose Point of Care 337 (65-105)
--- NOTE | 2020-10-08 13:03 | PM.IMPN ---
Progress Note: A&P Assessment and Plan (1) Acute kidney injury: Code(s): N17.9 - Acute kidney failure, unspecified Status: Acute Assessment and Plan: Will continue to monitor, recent debridement and wound vac theraphy on right foot (2) Dehydration: Code(s): E86.0 - Dehydration Status: Acute Assessment and Plan: Iv fluids, creat is 4.1, sodium is 147, nephrology rounding (3) Multifocal pneumonia: Code(s): J18.9 - Pneumonia, unspecified organism Status: Acute Assessment and Plan: iv zosyn day 2 , Bc negative to date, Cxr multifocal PNEUMONIA (4) Insulin dependent type 2 diabetes mellitus: Code(s): E11.9 - Type 2 diabetes mellitus without complications; Z79.4 - [employer] (current) use of insulin Status: Acute Assessment and Plan: Stable on meds (5) Hypertension: Code(s): I10 - Essential (primary) hypertension Status: Inactive Assessment and Plan: Stable on meds, hb is 8.9 (6) Chronic anemia: Code(s): D64.9 - Anemia, unspecified Status: Acute Assessment and Plan: Stable Subjective Date/time seen: 10/08/20 13:03 Interval history: 65-year-old male with hypertension and insulin-dependent type 2 diabetes mellitus who presented to the emergency department earlier today with complaints of weakness. pt admitted for MEAGAN and pneumonia, uncontrolled Dm, wants to go home. Still appears weak, adviced physical theraphy, recent admission with oM of foot had debridement at that time. Review of Systems Review of Systems: All systems reviewed & are unremarkable except as noted in HPI and below Exam Narrative: Exam Narrative: General: Well-developed male, somewhat unclear with stories Neck: Supple. Respiratory: clear to auscultation BL no added sounds Cardiovascular: Regular rate and rhythm with S1-S2. Gastrointestinal: Abdomen is soft, nontender, and nondistended with positive bowel sounds. Skin: Warm and dry. Extremities: pt has sock on his foot Neurological: Alert. Speech is clear. No facial asymmetry. Psychiatric: Odd mood and flat affect. Difficult historian. Objective Data Vital Signs Vital Signs: Vital Signs - 24 hr 10/07/20 14:00 10/07/20 22:00 10/08/20 06:00 Temperature 36.9 C 36.7 C 36.9 C Pulse Rate 108 H 100 90 Respiratory Rate 20 20 18 Blood Pressure 128/75 147/88 H 110/57 L Pulse Oximetry 96 98 100 Intake/Output Intake/Output: Intake & Output 10/05/20 10/06/20 10/07/20 10/08/20 23:59 23:59 23:59 23:59 Intake Total 1932 1510 2525 1320 Output Total 4124 864 0567 600 Balance 366 671 8764 720 Meds/Results Medications: Active Medications Generic Name Dose Route Start Last Admin Trade Name Freq PRN Reason Stop Dose Admin Acetaminophen 650 mg 10/05/20 19:41 10/05/20 20:39 Acetaminophen 325 Mg Tablet PO 650 mg Q6H PRN Administration Mild Pain (1-3) or Fever Dextrose 12.5 gm 10/05/20 00:45 Dextrose 50% 25 Gm/50 Ml Syringe IV PUSH PRN PRN Hypoglycemia Protocol Epoetin Nathen-epbx 10,000 units 10/08/20 14:00 Epoetin Nathen-Epbx 10,000 Units/Ml Vial SUB-Q TuThSa@1400 ZELDA Glucagon 1 mg 10/05/20 00:45 Glucagon For Inj 1 Mg Vial IM PRN PRN Hypoglycemia Protocol Glucose 15 gm 10/05/20 00:45 Glucose Oral Gel 15 Gm Of Glucse In 37.5 Gm Tube PO PRN PRN Hypoglycemia Protocol Dextrose 1,000 mls @ 100 mls/hr 10/05/20 00:45 Dextrose 5% 1,000 Ml IVPB PRN PRN Hypoglycemia Protocol Piperacillin Sod/Tazobactam Sod 2.25 gm in 50 mls @ 100 mls/hr 10/06/20 18:00 10/08/20 12:28 Zosyn 2.25 Gm/D5w 50 Ml IVPB 100 mls/hr Q6HR ZELDA Administration Dextrose/Sodium Chloride 1,000 mls @ 100 mls/hr 10/07/20 14:30 10/08/20 03:49 Dextrose 5% Sodium Chloride 0.45% IV CONT 100 mls/hr .Q10H ZELDA Administration Insulin Aspart 3 - 6 units 10/05/20 08:00
--- NOTE | 2020-10-08 13:22 | PC.NURSE ---
Patient refusing any repositioning in bed.
[2020-10-08] MEDS: EPOETIN ALFA-EPBX 10,000 UNITS/ML VIAL 10000 UNITS SUB-Q (13:57)
[2020-10-08 14:00] VITALS: BP 148/87; PULSE 114; RESP 18; TEMP 36.8; O2SAT 96
--- NOTE | 2020-10-08 15:39 | PM.PNORT ---
Progress Note: A&P Assessment and Plan (1) Osteomyelitis of ankle or foot, right, acute: Code(s): M86.171 - Other acute osteomyelitis, right ankle and foot Status: Ruled-out Assessment and Plan: Continue daily dressing changes with silver gel, transfer and cover dry. Kerlex. Sutures removed today. Continue IV antibiotics. Post op shoe with ambulation. PWB on heel. Fall risk with weakness. Elevate RLE on pillows. Will continue to follow. Plan for follow up in the [facility] wound [facility]. (2) Diabetes mellitus, new onset: Code(s): E11.9 - Type 2 diabetes mellitus without complications Status: Acute Assessment and Plan: Will need proper nutrition and medication management for optimal healing. Subjective Subjective Date/Time Seen: 10/08/20 15:40 Patient resting comfortably in bed. Alert/awake. No concerns regarding his foot at this time. Mild pain with dressing changes. Answering questions appropriately. Review of Systems Review of Systems: All systems reviewed & are unremarkable except as noted in HPI and below Constitutional: Constitutional: Reports fatigue and Reports weakness Cardiovascular: Cardiovascular: Denies chest pain, Reports pedal edema and Denies lightheadedness Respiratory: Respiratory: Denies cough and Denies dyspnea Gastrointestinal: Gastrointestinal: Denies nausea and Denies vomiting Genitourinary: Genitourinary: Reports no additional male genitourinary complaints Musculoskeletal: Musculoskeletal: Reports as per HPI Exam Const: General: comfortable and no acute distress Resp: Effort & Inspection: normal respiratory effort Cardio: Rate: regular rate Rhythm: regular rhythm GI: Inspection: non-distended GI Palp: Yes Soft to palpation and No Tenderness to palpation present (GI) Skin: Wounds: wounds noted (Right Lateral Forefoot ) Other: Right lateral foot dressing removed. Mild serosanguineous drainage. Minimal erythema. Surrounding incisional wound dehiscence with necrotic cap covering which is dry. Open area over the lateral 5th ray with soft tissue sloughing. No necrosis. Sutures removed. 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 Slough and devitalized tissue noted at the distal extent of the wound. Sutures intact at the more proximal aspect of the lateral midfoot. Psych: Mental Status: mental status grossly normal Affect: normal affect Objective Data Vital Signs Vital Signs: Vital Signs - 24 hr 10/07/20 22:00 10/08/20 06:00 10/08/20 14:00 Temperature 36.7 C 36.9 C 36.8 C Pulse Rate 100 90 114 H Respiratory Rate 20 18 18 Blood Pressure 147/88 H 110/57 L 148/87 H Pulse Oximetry 98 100 96 Intake/Output Intake/Output: Intake & Output 10/05/20 10/06/20 10/07/20 10/08/20 23:59 23:59 23:59 23:59 Intake Total 1932 1510 2525 1570 Output Total 9439 019 8402 600 Balance 976 734 7739 970 Meds/Results Medications: Active Medications Generic Name Dose Route Start Last Admin Trade Name Freq PRN Reason Stop Dose Admin Acetaminophen 650 mg 10/05/20 19:41 10/05/20 20:39 Acetaminophen 325 Mg Tablet PO 650 mg Q6H PRN Administration
[2020-10-08] MEDS: SODIUM CHLORIDE 0.9% IV 1,000 ML 100 ML IV CONT (17:26)
[2020-10-08 17:36] LABS: Glucose Point of Care 134 (65-105)
[2020-10-08 19:30] VITALS: RESP 20; O2SAT 96
[2020-10-08] MEDS: HEPARIN SODIUM 5,000 UNITS/ML VIAL 5000 UNITS SUB-Q (20:41)
[2020-10-08] MEDS: INSULIN GLARGINE (*BKC) 100 UNITS/ML 11 UNITS SUB-Q (20:41)
[2020-10-08 21:02] LABS: Glucose Point of Care 96 (65-105)
[2020-10-08 22:18] VITALS: BP 154/80; PULSE 119; RESP 20; TEMP 36.7; O2SAT 96
[2020-10-09] MEDS: SODIUM CHLORIDE 0.9% IV 1,000 ML 100 ML IV CONT (04:00)
[2020-10-09] MEDS: CENTRAL LINE FLUSH 20 ML IV PUSH (05:25)
[2020-10-09] MEDS: CENTRAL LINE FLUSH 10 ML IV PUSH ×3 (05:42→21:13)
[2020-10-09 06:00] VITALS: BP 166/76; PULSE 102; RESP 20; TEMP 36.7; O2SAT 97
[2020-10-09 06:07] LABS: Albumin Level 2.7 g/dL (3.5-5.1); Anion Gap 6 mmol/L (8-16); Blood Urea Nitrogen 43 mg/dL (9-20); Calcium 7.5 mg/dL (8.4-10.2); Carbon Dioxide 22 mmol/L (22-30); Chloride 123 mmol/L (98-107); Estimated CRCL calculation 17 ml/min; Estimated Glomerular Filt Rate 21; Glucose 112 mg/dL (75-110); Phosphorus 3.3 mg/dL (2.5-4.5); Sodium 151 mmol/L (137-145)
[2020-10-09 08:00] VITALS: PULSE 102; RESP 20; O2SAT 97
[2020-10-09 08:24] LABS: Glucose Point of Care 124 (65-105)
[2020-10-09 10:28] LABS: Anti Glomerular Basement Memb <1.0 AI (<1.0)
[2020-10-09] MEDS: HEPARIN SODIUM 5,000 UNITS/ML VIAL 5000 UNITS SUB-Q ×2 (10:41→20:54)
[2020-10-09] MEDS: SILVERGEL (ELTA) 45 ML 1 APPLIC TOPICAL (10:41)
[2020-10-09 12:21] LABS: Glucose Point of Care 160 (65-105)
--- NOTE | 2020-10-09 12:28 | PM.IMPN ---
Progress Note: A&P Assessment and Plan (1) Acute kidney injury: Code(s): N17.9 - Acute kidney failure, unspecified Status: Acute Assessment and Plan: Will continue to monitor, pt is on fluids, nephrology rounding. recent debridement and wound vac theraphy on right foot (2) Dehydration: Code(s): E86.0 - Dehydration Status: Acute Assessment and Plan: Iv fluids, creat is 3.6 , sodium 151, nephrology rounding. I will stop the fluids since sodium is high and pt looks hydrated now. (3) Multifocal pneumonia: Code(s): J18.9 - Pneumonia, unspecified organism Status: Acute Assessment and Plan: iv zosyn day 3 , Bc negative to date, Cxr multifocal PNEUMONIA (4) Insulin dependent type 2 diabetes mellitus: Code(s): E11.9 - Type 2 diabetes mellitus without complications; Z79.4 - retirement (current) use of insulin Status: Acute Assessment and Plan: Stable on meds (5) Hypertension: Code(s): I10 - Essential (primary) hypertension Status: Inactive Assessment and Plan: Stable on meds, hb is 8.9 (6) Chronic anemia: Code(s): D64.9 - Anemia, unspecified Status: Acute Assessment and Plan: Stable (7) Encephalopathy chronic: Code(s): G93.49 - Other encephalopathy Status: Acute Assessment and Plan: ? secondary to untreated Diabeates? infection ? new stroke ct ordered mri brain ordered Subjective Date/time seen: 10/09/20 12:28 Interval history: 65-year-old male with hypertension and insulin-dependent type 2 diabetes mellitus who presented to the emergency department earlier today with complaints of weakness. pt admitted for MEAGAN and pneumonia, uncontrolled Dm, wants to go home. Still appears weak, adviced physical theraphy, recent admission with OM of foot had debridement at that time. Pt creat slightly improved to 3.6, glucose is better, hbaic is 11. Pt denies cough or fever but pt appears incoherent at times ? metabolic encephalopathy ? stroke CT head reviewed, MRI brain ordered. Exam Narrative: Exam Narrative: General: Well-developed male, somewhat unclear with stories, incoherent Neck: Supple. Respiratory: clear to auscultation BL no added sounds Cardiovascular: Regular rate and rhythm with S1-S2. Gastrointestinal: Abdomen is soft, nontender, and nondistended with positive bowel sounds. Skin: Warm and dry. Extremities: pt has sock and dressing on foot Neurological: Alert. Speech is clear. No facial asymmetry. Psychiatric: Odd mood and flat affect. Difficult historian. Objective Data Vital Signs Vital Signs: Vital Signs - 24 hr 10/08/20 14:00 10/08/20 19:30 10/08/20 22:18 Temperature 36.8 C 36.7 C Pulse Rate 114 H 119 H Respiratory Rate 18 20 20 Blood Pressure 148/87 H 154/80 H Pulse Oximetry 96 96 96 10/09/20 06:00 10/09/20 08:00 Temperature 36.7 C Pulse Rate 102 H 102 H Respiratory Rate 20 20 Blood Pressure 166/76 H Pulse Oximetry 97 97 Intake/Output Intake/Output: Intake & Output 10/06/20 10/07/20 10/08/20 10/09/20 23:59 23:59 23:59 23:59 Intake Total 1510 2525 1910 1740 Output Total 850 1475 1350 Balance 660 7721 125 9100 Meds/Results Medications: Active Medications Generic Name Dose Route Start Last Admin Trade Name Freq PRN Reason Stop Dose Admin Acetaminophen 650 mg 10/05/20 19:41 10/05/20 20:39 Acetaminophen 325 Mg Tablet PO 650 mg Q6H PRN Administration Mild Pain (1-3) or Fever Dextrose 12.5 gm 10/05/20 00:45 Dextrose 50% 25 Gm/50 Ml Syringe IV PUSH PRN PRN Hypoglycemia Protocol Epoetin Nathen-epbx 10,000 units 10/08/20 14:00 10/08/20 13:57 Epoetin Nathen-Epbx 10,000 Units/Ml Vial SUB-Q 10,000 units TuThSa@1400 ZELDA Administration Glucagon 1 mg 10/05/20 00:45 Glucagon For Inj 1 Mg Vial IM PRN PRN Hypoglycemia Protocol Glucose 15 gm 10/05/20 00:45 Gluco
[2020-10-09 14:00] VITALS: BP 148/90; PULSE 108; RESP 18; TEMP 37.2; O2SAT 96
--- NOTE | 2020-10-09 16:12 | P.PNNP_ITS ---
Progress Note: A&P Assessment and Plan (1) Acute kidney injury: Code(s): N17.9 - Acute kidney failure, unspecified Status: Acute Assessment and Plan: * The patient has acute kidney injury. * His baseline creatinine is around 1.3. * This has progressively worsened since 09/25 when it was 1.5. * He has no peripheral eosinophilia. he has no rash. * His sodium is a bit elevated suggesting decreased fluid intake. * Urine electrolytes are non pre renal * renal ultrasound shows increased renal echogenicity but no hydronephrosis. * etiology not clear * His creatinine improved again today down to 3.6. * Will continue IV fluids. D5W makes an sugar go to high so will use half normal saline. 0.2 saline is not available. * Continue to treat the foot. * SM, DNA, C3, C4 okay. Continue to watch for pending serology and paraprotein investigations. (2) Osteomyelitis of ankle or foot, right, acute: Code(s): M86.171 - Other acute osteomyelitis, right ankle and foot Status: Ruled-out Assessment and Plan: * s/p surgery last admission (3) Multifocal pneumonia: Code(s): J18.9 - Pneumonia, unspecified organism Status: Acute Assessment and Plan: * as noted by admission imaging * on antibiotics. * no pulm sx. (4) Essential (primary) hypertension: Code(s): I10 - Essential (primary) hypertension Status: Acute Assessment and Plan: * blood pressure is up and down today, anywhere from 109-152. * Will follow this along. If consistently high we can fold his antihypertensives back in. (5) Anemia: Code(s): D64.9 - Anemia, unspecified Status: Acute Assessment and Plan: * probably due to a combination of MEAGAN, CKD, and acute illness * hb down a bit. * start epo. (6) Diabetes: Code(s): E11.9 - Type 2 diabetes mellitus without complications Status: Chronic Assessment and Plan: * follow accucheks * on SSI and Lantus Subjective Date/time seen: 10/09/20 16:12 Interval history: The patient is in good spirits. No chest pain or shortness of breath Apparently not very thirsty. Review of Systems Cardiovascular: Cardiovascular: Reports no additional cardiovascular complaints Respiratory: Respiratory: Reports no additional respiratory complaints Gastrointestinal: Gastrointestinal: Reports no additional gastrointestinal complaints Genitourinary: Genitourinary: Reports no additional male genitourinary complaints Exam Narrative: Exam Narrative: WDWN in NAD skin no rash or subcu nodules head ncat lungs clear to ausc cor reg no rub or gallops abd BS+ nontender ext no edema . Bandage on the foot. The nurses changing it now.. Objective Data Vital Signs Vital Signs: Vital Signs - 24 hr 10/08/20 19:30 10/08/20 22:18 10/09/20 06:00 Temperature 36.7 C 36.7 C Pulse Rate 119 H 102 H Respiratory Rate 20 20 20 Blood Pressure 154/80 H 166/76 H Pulse Oximetry 96 96 97 10/09/20 08:00 10/09/20 14:00 Temperature 37.2 C Pulse Rate 102 H 108 H Respiratory Rate 20 18 Blood Pressure 148/90 H Pulse Oximetry 97 96 Intake/Output Intake/Output: Intake & Output 10/06/20 10/07/2010/08
--- NOTE | 2020-10-09 16:12 | PM.PNNEP ---
Progress Note: A&P Assessment and Plan (1) Acute kidney injury: Code(s): N17.9 - Acute kidney failure, unspecified Status: Acute Assessment and Plan: The patient has acute kidney injury. His baseline creatinine is around 1.3. This has progressively worsened since 09/25 when it was 1.5. He has no peripheral eosinophilia. he has no rash. His sodium is a bit elevated suggesting decreased fluid intake. Urine electrolytes are non pre renal renal ultrasound shows increased renal echogenicity but no hydronephrosis. etiology not clear His creatinine improved again today down to 3.6. Will continue IV fluids. D5W makes an sugar go to high so will use half normal saline. 0.2 saline is not available. Continue to treat the foot. SM, DNA, C3, C4 okay. Continue to watch for pending serology and paraprotein investigations. (2) Osteomyelitis of ankle or foot, right, acute: Code(s): M86.171 - Other acute osteomyelitis, right ankle and foot Status: Ruled-out Assessment and Plan: s/p surgery last admission (3) Multifocal pneumonia: Code(s): J18.9 - Pneumonia, unspecified organism Status: Acute Assessment and Plan: as noted by admission imaging on antibiotics. no pulm sx. (4) Essential (primary) hypertension: Code(s): I10 - Essential (primary) hypertension Status: Acute Assessment and Plan: blood pressure is up and down today, anywhere from 109-152. Will follow this along. If consistently high we can fold his antihypertensives back in. (5) Anemia: Code(s): D64.9 - Anemia, unspecified Status: Acute Assessment and Plan: probably due to a combination of MEAGAN, CKD, and acute illness hb down a bit. start epo. (6) Diabetes: Code(s): E11.9 - Type 2 diabetes mellitus without complications Status: Chronic Assessment and Plan: follow accucheks on SSI and Lantus Subjective Date/time seen: 10/09/20 16:12 Interval history: The patient is in good spirits. No chest pain or shortness of breath Apparently not very thirsty. Review of Systems Cardiovascular: Cardiovascular: Reports no additional cardiovascular complaints Respiratory: Respiratory: Reports no additional respiratory complaints Gastrointestinal: Gastrointestinal: Reports no additional gastrointestinal complaints Genitourinary: Genitourinary: Reports no additional male genitourinary complaints Exam Narrative: Exam Narrative: WDWN in NAD skin no rash or subcu nodules head ncat lungs clear to ausc cor reg no rub or gallops abd BS+ nontender ext no edema . Bandage on the foot. The nurses changing it now.. Objective Data Vital Signs Vital Signs: Vital Signs - 24 hr 10/08/20 19:30 10/08/20 22:18 10/09/20 06:00 Temperature 36.7 C 36.7 C Pulse Rate 119 H 102 H Respiratory Rate 20 20 20 Blood Pressure 154/80 H 166/76 H Pulse Oximetry 96 96 97 10/09/20 08:00 10/09/20 14:00 Temperature 37.2 C Pulse Rate 102 H 108 H Respiratory Rate 20 18 Blood Pressure 148/90 H Pulse Oximetry 97 96 Intake/Output Intake/Output: Intake & Output 10/06/20 10/07/20 10/08/20 10/09/20 23:59 23:59 23:59 23:59 Intake Total 1510 2525 1910 1830 Output Total 850 1475 1350 Balance 660 7795 605 0150 Meds/Results Medications: Active Medications Generic Name Dose Route Start Last Admin Trade Name Freq PRN Reason Stop Dose Admin Acetaminophen 650 mg 10/05/20 19:41 10/05/20 20:39 Acetaminophen 325 Mg Tablet PO 650 mg Q6H PRN Administration Mild Pain (1-3) or Fever Dextrose 12.5 gm 10/05/20 00:45 Dextrose 50% 25 Gm/50 Ml Syringe IV PUSH PRN PRN Hypoglycemia Protocol Enoxaparin Sodium 40 mg 10/10/20 09:00 Enoxaparin 40 Mg/0.4 Ml Syringe SUB-Q DAILY ZELDA Epoetin Nathen-epbx 10,000 units 10/08/20 14:00 10/08/20 13:57 Epoetin Nathen-Ep
[2020-10-09 16:41] LABS: Albumin 2.3 g/dL (3.8-4.8); Alpha 1 Globulin 0.5 g/dL (0.2-0.3); Alpha 2 Globulin 1.2 g/dL (0.5-0.9); Beta 1 Globulin 0.3 g/dL (0.4-0.6); Gamma Globulin 1.1 g/dL (0.8-1.7); Protein, Total 5.8 g/dL (6.1-8.1)
[2020-10-09 17:44] LABS: Glucose Point of Care 117 (65-105)
[2020-10-09] MEDS: SODIUM CHLORIDE 0.45% 1,000 ML 75 ML IV CONT (18:31)
[2020-10-09] MEDS: INSULIN GLARGINE (*BKC) 100 UNITS/ML 11 UNITS SUB-Q (21:01)
[2020-10-09 22:00] VITALS: BP 145/86; PULSE 98; RESP 18; TEMP 36.8; O2SAT 98
[2020-10-10 04:54] LABS: Glucose Point of Care 149 (65-105)
[2020-10-10 06:00] VITALS: BP 149/88; PULSE 103; RESP 20; TEMP 36.8; O2SAT 100
[2020-10-10] MEDS: CENTRAL LINE FLUSH 10 ML IV PUSH ×3 (06:00→21:23)
[2020-10-10 06:40] LABS: Anion Gap 7 mmol/L (8-16); Blood Urea Nitrogen 38 mg/dL (9-20); Calcium 7.5 mg/dL (8.4-10.2); Carbon Dioxide 22 mmol/L (22-30); Chloride 124 mmol/L (98-107); Estimated CRCL calculation 19 ml/min; Estimated Glomerular Filt Rate 23; Glucose 93 mg/dL (75-110); Sodium 153 mmol/L (137-145)
[2020-10-10 06:42] LABS: Hematocrit 26.7 % (42.0-52.0); Hemoglobin 8.5 g/dL (14.0-18.0); Mean Corpuscular HGB Conc 31.8 g/dl (32-36); Mean Corpuscular Hemoglobin 26.6 pg (26-34); Mean Corpuscular Volume 83.4 fl (80-100); Mean Platelet Volume 9.6 fl (7.4-10.4); Platelet Count Result 197 k/mm3 (150-375); Red Cell Distribution Width 14.2 % (11.5-14.5); White Blood Count 6.6 K/mm3 (4.5-10.0)
[2020-10-10 08:00] VITALS: PULSE 103; RESP 20; O2SAT 100
[2020-10-10 08:51] LABS: Glucose Point of Care 134 (65-105)
[2020-10-10] MEDS: HEPARIN SODIUM 5,000 UNITS/ML VIAL 5000 UNITS SUB-Q ×2 (09:39→21:22)
[2020-10-10] MEDS: SILVERGEL (ELTA) 45 ML 1 APPLIC TOPICAL (09:39)
[2020-10-10 11:47] LABS: ANCA Screen Negative (Negative)
[2020-10-10 13:38] LABS: Glucose Point of Care 150 (65-105)
--- NOTE | 2020-10-10 13:46 | PM.IMPN ---
Progress Note: A&P Assessment and Plan (1) Acute kidney injury: Code(s): N17.9 - Acute kidney failure, unspecified Status: Acute Assessment and Plan: Will continue to monitor, pt is on NS at 75, nephrology rounding. recent debridement and wound vac theraphy on right foot (2) Dehydration: Code(s): E86.0 - Dehydration Status: Acute Assessment and Plan: Iv fluids, creat is 3.3 , sodium 153, nephrology rounding. (3) Multifocal pneumonia: Code(s): J18.9 - Pneumonia, unspecified organism Status: Acute Assessment and Plan: iv zosyn day 4 , Bc negative to date, Cxr multifocal PNEUMONIA, rpt cxr tomorrow (4) Insulin dependent type 2 diabetes mellitus: Code(s): E11.9 - Type 2 diabetes mellitus without complications; Z79.4 - supervisor intermediates (current) use of insulin Status: Acute Assessment and Plan: Stable on meds (5) Hypertension: Code(s): I10 - Essential (primary) hypertension Status: Inactive Assessment and Plan: Stable on meds, hb is 8.9 (6) Chronic anemia: Code(s): D64.9 - Anemia, unspecified Status: Acute Assessment and Plan: Stable (7) Encephalopathy chronic: Code(s): G93.49 - Other encephalopathy Status: Acute Assessment and Plan: ? secondary to untreated Diabeates? infection ? new stroke ct ordered pt refuses MRi brain ? secondary to alcholol Subjective Date/time seen: 10/10/20 13:46 Interval history: 65-year-old male with hypertension and insulin-dependent type 2 diabetes mellitus who presented to the emergency department earlier today with complaints of weakness. Pt admitted for MEAGAN and pneumonia, uncontrolled Dm, wants to go home. Still appears weak, advised physical therapy, recent admission with OM of foot had debridement at that time. Pt creat slightly improved to 3.3, glucose is better, hbaic is 11. Pt denies cough or fever but pt appears incoherent at times ? metabolic encephalopathy ? stroke CT head reviewed,pt refused MRI brain, does not want to have a MRI of brain. I will order Cxr tomorrow. Encephalopathy unsure maybe alcholol related or DM related. Review of Systems Review of Systems: All systems reviewed & are unremarkable except as noted in HPI and below Exam Narrative: Exam Narrative: General: Well-developed male, somewhat unclear with stories, incoherent Neck: Supple. Respiratory: clear to auscultation BL no added sounds Cardiovascular: Regular rate and rhythm with S1-S2. Gastrointestinal: Abdomen is soft, nontender, and nondistended with positive bowel sounds. Skin: Warm and dry. Extremities: pt has sock and dressing on foot Neurological: Alert. Speech is clear. No facial asymmetry. Psychiatric: Odd mood and flat affect. Difficult historian. Objective Data Vital Signs Vital Signs: Vital Signs - 24 hr 10/09/20 14:00 10/09/20 22:00 10/10/20 06:00 Temperature 37.2 C 36.8 C 36.8 C Pulse Rate 108 H 98 103 H Respiratory Rate 18 18 20 Blood Pressure 148/90 H 145/86 H 149/88 H Pulse Oximetry 96 98 100 10/10/20 08:00 Temperature Pulse Rate 103 H Respiratory Rate 20 Blood Pressure Pulse Oximetry 100 Intake/Output Intake/Output: Intake & Output 10/07/20 10/08/20 10/09/20 10/10/20 23:59 23:59 23:59 23:59 Intake Total 2525 1910 2460 300 Output Total 1475 1350 600 700 Balance 1501 670 5124 -400 Meds/Results Medications: Active Medications Generic Name Dose Route Start Last Admin Trade Name Freq PRN Reason Stop Dose Admin Acetaminophen 650 mg 10/05/20 19:41 10/05/20 20:39 Acetaminophen 325 Mg Tablet PO 650 mg Q6H PRN Administration Mild Pain (1-3) or Fever Dextrose 12.5 gm 10/05/20 00:45 Dextrose 50% 25 Gm/50 Ml Syringe IV PUSH PRN PRN Hypoglycemia Protocol Epoetin Nathen-epbx 10,000 units 10/08/20 14:00 10/08/20 13:57 Epoetin Nathen-Epbx 10,000 Units/Ml Vial SUB-Q 10,00
[2020-10-10 14:00] VITALS: BP 153/95; PULSE 106; RESP 20; TEMP 37.2; O2SAT 99
--- NOTE | 2020-10-10 14:14 | PM.PNORT ---
Progress Note: A&P Assessment and Plan (1) Osteomyelitis of ankle or foot, right, acute: Code(s): M86.171 - Other acute osteomyelitis, right ankle and foot Status: Ruled-out Assessment and Plan: Wound VAC applied today to right lateral forefoot. Continue IV antibiotics. Post op shoe with ambulation. PWB on heel. Fall risk with weakness. Elevate RLE on pillows. Will continue to follow. (2) Diabetes mellitus, new onset: Code(s): E11.9 - Type 2 diabetes mellitus without complications Status: Acute Assessment and Plan: Will need proper nutrition and medication management for optimal healing. Subjective Subjective Date/Time Seen: 10/10/20 1250 Patient awake/alert. No new complaints. Initially requesting to be discharged but then stating he feels bad about the way he has treated staff/physicians earlier today. Agrees with transition of wound care to wound VAC while inpatient. Overall, seems confused about plan of care and reasoning for continued hospitalization. Review of Systems Review of Systems: All systems reviewed & are unremarkable except as noted in HPI and below Constitutional: Constitutional: Reports fatigue and Reports weakness Cardiovascular: Cardiovascular: Denies chest pain, Reports pedal edema and Denies lightheadedness Respiratory: Respiratory: Denies cough and Denies dyspnea Gastrointestinal: Gastrointestinal: Denies nausea and Denies vomiting Genitourinary: Genitourinary: Reports no additional male genitourinary complaints Musculoskeletal: Musculoskeletal: Reports as per HPI Exam Const: General: comfortable and no acute distress Resp: Effort & Inspection: normal respiratory effort Cardio: Rate: regular rate Rhythm: regular rhythm GI: Inspection: non-distended GI Palp: Yes Soft to palpation and No Tenderness to palpation present (GI) Skin: Wounds: wounds noted (Right Lateral Forefoot ) Other: Right lateral foot dressing removed. Mild serosanguineous drainage. Minimal erythema. Surrounding incisional wound dehiscence with necrotic cap covering which is dry. Open area over the lateral 5th ray with soft tissue sloughing, no appreciable new granulation tissue. No necrosis. 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 Slough and devitalized tissue noted at the distal extent of the wound. No new granulation tissue. Palpable but diminshed pedal pulse. Psych: Mental Status: mental status grossly normal Affect: normal affect Objective Data Vital Signs Vital Signs: Vital Signs - 24 hr 10/09/20 22:00 10/10/20 06:00 10/10/20 08:00 Temperature 36.8 C 36.8 C Pulse Rate 98 103 H 103 H Respiratory Rate 18 20 20 Blood Pressure 145/86 H 149/88 H Pulse Oximetry 98 100 100 Intake/Output Intake/Output: Intake & Output 10/07/20 10/08/20 10/09/20 10/10/20 23:59 23:59 23:59 23:59 Intake Total 2525 1910 2460 300 Output Total 1475 1350 600 700 Balance 3476 109 4844 -400 Meds/Results Medications: Active Medications Generic Name Dose Route Start Last Admin Trade Name Freq PRN Reason Stop Dose Admin Acetaminophen 650 mg 10/05/20 19:41 10/05/20
[2020-10-10] MEDS: EPOETIN ALFA-EPBX 10,000 UNITS/ML VIAL 10000 UNITS SUB-Q (15:02)
[2020-10-10] MEDS: SODIUM CHLORIDE 0.45% 1,000 ML 75 ML IV CONT (17:02)
--- NOTE | 2020-10-10 17:26 | P.PNNP_ITS ---
Progress Note: A&P Assessment and Plan (1) Acute kidney injury: Code(s): N17.9 - Acute kidney failure, unspecified Status: Acute Assessment and Plan: * The patient has acute kidney injury. * His baseline creatinine is around 1.3. * This has progressively worsened since 09/25 when it was 1.5. * He has no peripheral eosinophilia. he has no rash. * His sodium is a bit elevated suggesting decreased fluid intake. * Urine electrolytes are non pre renal * renal ultrasound shows increased renal echogenicity but no hydronephrosis. * etiology probably relatd to the infection, ATN. * His creatinine improved again today down to 3.3. this is falling at the same rate it ugo. * Will continue IV fluids. D5W makes an sugar go to high so will use half normal saline. 0.2 saline is not available. * Continue to treat the foot. * SM, DNA, C3, C4 okay. Continue to watch for pending serology and paraprotein investigations. (2) Osteomyelitis of ankle or foot, right, acute: Code(s): M86.171 - Other acute osteomyelitis, right ankle and foot Status: Ruled-out Assessment and Plan: * s/p surgery last admission (3) Multifocal pneumonia: Code(s): J18.9 - Pneumonia, unspecified organism Status: Acute Assessment and Plan: * as noted by admission imaging * on antibiotics. * no pulm sx. (4) Essential (primary) hypertension: Code(s): I10 - Essential (primary) hypertension Status: Acute Assessment and Plan: * blood pressure is up and down today, anywhere from 109-152. * Will follow this along. If consistently high we can fold his antihypertensives back in. (5) Anemia: Code(s): D64.9 - Anemia, unspecified Status: Acute Assessment and Plan: * probably due to a combination of MEAGAN, CKD, and acute illness * hb down a bit. * start epo. (6) Diabetes: Code(s): E11.9 - Type 2 diabetes mellitus without complications Status: Chronic Assessment and Plan: * follow accucheks * on SSI and Lantus (7) Hypernatremia: Code(s): E87.0 - Hyperosmolality and hypernatremia Status: Acute Assessment and Plan: sodium still high. U.O.. not high so not DI check serum and urine osmolality to be complete. sugars not high enough to spill glucose into the urine and cause osmotic drag. if this were the case, his u.o. would be high. This looks like dysgeusic hypernatremia. he just does not react to his thirst. encouraged to drink more water. Subjective Date/time seen: 10/10/20 17:26 Interval history: The patient is in good spirits. eating lunch Apparently not very thirsty. we discussed again drinking lots of fluid Review of Systems Cardiovascular: Cardiovascular: Reports no additional cardiovascular complaints Respiratory: Respiratory: Reports no additional respiratory complaints Gastrointestinal: Gastrointestinal: Reports no additional gastrointestinal complaints Genitourinary: Genitourinary: Reports no additional male genitourinary complaints Exam Narrative: Exam Narrative: WDWN in NAD skin no rash or subcu nodules head ncat lungs clear cor reg no rub or gallops abd BS+ nontender ext no edema . Bandage on the foot. Objective Data Vital Signs Vital Signs: Vital Signs - 24 hr 10/09/20 22:00 10/10/20
--- NOTE | 2020-10-10 17:26 | PM.PNNEP ---
Progress Note: A&P Assessment and Plan (1) Acute kidney injury: Code(s): N17.9 - Acute kidney failure, unspecified Status: Acute Assessment and Plan: The patient has acute kidney injury. His baseline creatinine is around 1.3. This has progressively worsened since 09/25 when it was 1.5. He has no peripheral eosinophilia. he has no rash. His sodium is a bit elevated suggesting decreased fluid intake. Urine electrolytes are non pre renal renal ultrasound shows increased renal echogenicity but no hydronephrosis. etiology probably relatd to the infection, ATN. His creatinine improved again today down to 3.3. this is falling at the same rate it ugo. Will continue IV fluids. D5W makes an sugar go to high so will use half normal saline. 0.2 saline is not available. Continue to treat the foot. SM, DNA, C3, C4 okay. Continue to watch for pending serology and paraprotein investigations. (2) Osteomyelitis of ankle or foot, right, acute: Code(s): M86.171 - Other acute osteomyelitis, right ankle and foot Status: Ruled-out Assessment and Plan: s/p surgery last admission (3) Multifocal pneumonia: Code(s): J18.9 - Pneumonia, unspecified organism Status: Acute Assessment and Plan: as noted by admission imaging on antibiotics. no pulm sx. (4) Essential (primary) hypertension: Code(s): I10 - Essential (primary) hypertension Status: Acute Assessment and Plan: blood pressure is up and down today, anywhere from 109-152. Will follow this along. If consistently high we can fold his antihypertensives back in. (5) Anemia: Code(s): D64.9 - Anemia, unspecified Status: Acute Assessment and Plan: probably due to a combination of MEAGAN, CKD, and acute illness hb down a bit. start epo. (6) Diabetes: Code(s): E11.9 - Type 2 diabetes mellitus without complications Status: Chronic Assessment and Plan: follow accucheks on SSI and Lantus (7) Hypernatremia: Code(s): E87.0 - Hyperosmolality and hypernatremia Status: Acute Assessment and Plan: sodium still high. U.O.. not high so not DI check serum and urine osmolality to be complete. sugars not high enough to spill glucose into the urine and cause osmotic drag. if this were the case, his u.o. would be high. This looks like dysgeusic hypernatremia. he just does not react to his thirst. encouraged to drink more water. Subjective Date/time seen: 10/10/20 17:26 Interval history: The patient is in good spirits. eating lunch Apparently not very thirsty. we discussed again drinking lots of fluid Review of Systems Cardiovascular: Cardiovascular: Reports no additional cardiovascular complaints Respiratory: Respiratory: Reports no additional respiratory complaints Gastrointestinal: Gastrointestinal: Reports no additional gastrointestinal complaints Genitourinary: Genitourinary: Reports no additional male genitourinary complaints Exam Narrative: Exam Narrative: WDWN in NAD skin no rash or subcu nodules head ncat lungs clear cor reg no rub or gallops abd BS+ nontender ext no edema . Bandage on the foot. Objective Data Vital Signs Vital Signs: Vital Signs - 24 hr 10/09/20 22:00 10/10/20 06:00 10/10/20 08:00 Temperature 36.8 C 36.8 C Pulse Rate 98 103 H 103 H Respiratory Rate 18 20 20 Blood Pressure 145/86 H 149/88 H Pulse Oximetry 98 100 100 10/10/20 14:00 Temperature 37.2 C Pulse Rate 106 H Respiratory Rate 20 Blood Pressure 153/95 H Pulse Oximetry 99 Intake/Output Intake/Output: Intake & Output 10/07/20 10/08/20 10/09/20 10/10/20 23:59 23:59 23:59 23:59 Intake Total 2525 1910 2460 2180 Output Total 1475 9950 668 2328 Balance 2216 261 2192 880 Meds/Results Medications: Active Medications Generic Name Dose Route Start Last Admin Trad
[2020-10-10 18:21] LABS: Glucose Point of Care 144 (65-105)
[2020-10-10] MEDS: INSULIN GLARGINE (*BKC) 100 UNITS/ML 11 UNITS SUB-Q (21:23)
[2020-10-10 22:00] VITALS: BP 160/96; PULSE 96; RESP 20; TEMP 37.2; O2SAT 100
[2020-10-10 23:00] LABS: Glucose Point of Care 144 (65-105)
[2020-10-11 05:36] LABS: Creatinine, Random Urine 98 mg/dL (20-320); Total Protein/Creatinine Ratio 1755 mg/g creat (22-128)
[2020-10-11 06:00] VITALS: BP 147/89; PULSE 97; RESP 20; TEMP 36.9; O2SAT 97
[2020-10-11] MEDS: SODIUM CHLORIDE 0.45% 1,000 ML 75 ML IV CONT ×2 (06:16→20:49)
[2020-10-11] MEDS: CENTRAL LINE FLUSH 10 ML IV PUSH ×3 (06:18→21:00)
[2020-10-11 06:20] LABS: Hematocrit 27.4 % (42.0-52.0); Hemoglobin 8.7 g/dL (14.0-18.0); Mean Corpuscular HGB Conc 31.8 g/dl (32-36); Mean Corpuscular Hemoglobin 26.5 pg (26-34); Mean Corpuscular Volume 83.5 fl (80-100); Mean Platelet Volume 9.2 fl (7.4-10.4); Platelet Count Result 189 k/mm3 (150-375); Red Blood Count 3.28 M/mm3 (4.6-6.20); Red Cell Distribution Width 14.2 % (11.5-14.5); White Blood Count 6.6 K/mm3 (4.5-10.0)
[2020-10-11 06:38] LABS: Albumin Level 2.6 g/dL (3.5-5.1); Anion Gap 5 mmol/L (8-16); Blood Urea Nitrogen 34 mg/dL (9-20); Calcium 7.5 mg/dL (8.4-10.2); Carbon Dioxide 20 mmol/L (22-30); Chloride 123 mmol/L (98-107); Estimated CRCL calculation 20 ml/min; Estimated Glomerular Filt Rate 26; Glucose 125 mg/dL (75-110); Phosphorus 2.8 mg/dL (2.5-4.5); Potassium 3.9 mmol/L (3.4-5.0); Sodium 148 mmol/L (137-145)
[2020-10-11 08:49] LABS: Glucose Point of Care 116 (65-105)
[2020-10-11] MEDS: HEPARIN SODIUM 5,000 UNITS/ML VIAL 5000 UNITS SUB-Q ×2 (09:00→20:50)
[2020-10-11] MEDS: MULTIVITAMINS THERAPEUTIC TAB (*BKC) 1 TABLET PO (09:01)
[2020-10-11] MEDS: FOLIC ACID 1 MG TABLET PO (09:01)
[2020-10-11] MEDS: THIAMINE HCL 100 MG TABLET PO (09:01)
--- NOTE | 2020-10-11 10:23 | P.PNNP_ITS ---
Progress Note: A&P Assessment and Plan (1) Acute kidney injury: Code(s): N17.9 - Acute kidney failure, unspecified Status: Acute Assessment and Plan: * The patient has acute kidney injury. * His baseline creatinine is around 1.3. * This has progressively worsened since 09/25 when it was 1.5. * He has no peripheral eosinophilia. he has no rash. * His sodium is a bit elevated suggesting decreased fluid intake. * Urine electrolytes are non pre renal * renal ultrasound shows increased renal echogenicity but no hydronephrosis. * etiology probably relatd to the infection, ATN. * His creatinine improved again today down to 3.0. this is falling at the same rate it ugo. * Will continue IV fluids. This is just to treat the hypernatremia * Continue to treat the foot. * SM, DNA, C3, C4 okay. Continue to watch for pending serology and paraprotein investigations. (2) Osteomyelitis of ankle or foot, right, acute: Code(s): M86.171 - Other acute osteomyelitis, right ankle and foot Status: Ruled-out Assessment and Plan: * s/p surgery last admission (3) Multifocal pneumonia: Code(s): J18.9 - Pneumonia, unspecified organism Status: Acute Assessment and Plan: * as noted by admission imaging * on antibiotics. * no pulm sx. (4) Essential (primary) hypertension: Code(s): I10 - Essential (primary) hypertension Status: Acute Assessment and Plan: * blood pressure is up and down today, anywhere from 109-152. * blood pressure consistently high now. Will add amlodipine. (5) Anemia: Code(s): D64.9 - Anemia, unspecified Status: Acute Assessment and Plan: * probably due to a combination of MEAGAN, CKD, and acute illness * hb down a bit. * start epo. (6) Diabetes: Code(s): E11.9 - Type 2 diabetes mellitus without complications Status: Chronic Assessment and Plan: * follow accucheks * on SSI and Lantus (7) Hypernatremia: Code(s): E87.0 - Hyperosmolality and hypernatremia Status: Acute Assessment and Plan: sodium still high. U.O.. not high so not DI Patient is just not thirsty. I told him that drinking more water Will help is Sodium. He will probably get discharged sooner if his sodium level comes to normal. Subjective Date/time seen: 10/11/20 10:23 Interval history: The patient is in good spirits. patient says he is not thirsty. Review of Systems Cardiovascular: Cardiovascular: Reports no additional cardiovascular complaints Respiratory: Respiratory: Reports no additional respiratory complaints Gastrointestinal: Gastrointestinal: Reports no additional gastrointestinal complaints Genitourinary: Genitourinary: Reports no additional male genitourinary complaints Exam Narrative: Exam Narrative: WDWN in NAD skin no rash or subcu nodules head ncat lungs clear cor reg no rub or gallops abd BS+ nontender ext no edema . Bandage on the foot. Objective Data Vital Signs Vital Signs: Vital Signs - 24 hr 10/10/20 14:00 10/10/20 22:00 10/11/20 06:00 Temperature 37.2 C 37.2 C 36.9 C Pulse Rate 106 H 96 97 Respiratory Rate 20 20 20 Blood Pressure 153/95 H 160/96 H 147/89 H Pulse Oximetry 99 100 97 Intake/Output Intake/Output:
--- NOTE | 2020-10-11 10:23 | PM.PNNEP ---
Progress Note: A&P Assessment and Plan (1) Acute kidney injury: Code(s): N17.9 - Acute kidney failure, unspecified Status: Acute Assessment and Plan: The patient has acute kidney injury. His baseline creatinine is around 1.3. This has progressively worsened since 09/25 when it was 1.5. He has no peripheral eosinophilia. he has no rash. His sodium is a bit elevated suggesting decreased fluid intake. Urine electrolytes are non pre renal renal ultrasound shows increased renal echogenicity but no hydronephrosis. etiology probably relatd to the infection, ATN. His creatinine improved again today down to 3.0. this is falling at the same rate it ugo. Will continue IV fluids. This is just to treat the hypernatremia Continue to treat the foot. SM, DNA, C3, C4 okay. Continue to watch for pending serology and paraprotein investigations. (2) Osteomyelitis of ankle or foot, right, acute: Code(s): M86.171 - Other acute osteomyelitis, right ankle and foot Status: Ruled-out Assessment and Plan: s/p surgery last admission (3) Multifocal pneumonia: Code(s): J18.9 - Pneumonia, unspecified organism Status: Acute Assessment and Plan: as noted by admission imaging on antibiotics. no pulm sx. (4) Essential (primary) hypertension: Code(s): I10 - Essential (primary) hypertension Status: Acute Assessment and Plan: blood pressure is up and down today, anywhere from 109-152. blood pressure consistently high now. Will add amlodipine. (5) Anemia: Code(s): D64.9 - Anemia, unspecified Status: Acute Assessment and Plan: probably due to a combination of MEAGAN, CKD, and acute illness hb down a bit. start epo. (6) Diabetes: Code(s): E11.9 - Type 2 diabetes mellitus without complications Status: Chronic Assessment and Plan: follow accucheks on SSI and Lantus (7) Hypernatremia: Code(s): E87.0 - Hyperosmolality and hypernatremia Status: Acute Assessment and Plan: sodium still high. U.O.. not high so not DI Patient is just not thirsty. I told him that drinking more water Will help is Sodium. He will probably get discharged sooner if his sodium level comes to normal. Subjective Date/time seen: 10/11/20 10:23 Interval history: The patient is in good spirits. patient says he is not thirsty. Review of Systems Cardiovascular: Cardiovascular: Reports no additional cardiovascular complaints Respiratory: Respiratory: Reports no additional respiratory complaints Gastrointestinal: Gastrointestinal: Reports no additional gastrointestinal complaints Genitourinary: Genitourinary: Reports no additional male genitourinary complaints Exam Narrative: Exam Narrative: WDWN in NAD skin no rash or subcu nodules head ncat lungs clear cor reg no rub or gallops abd BS+ nontender ext no edema . Bandage on the foot. Objective Data Vital Signs Vital Signs: Vital Signs - 24 hr 10/10/20 14:00 10/10/20 22:00 10/11/20 06:00 Temperature 37.2 C 37.2 C 36.9 C Pulse Rate 106 H 96 97 Respiratory Rate 20 20 20 Blood Pressure 153/95 H 160/96 H 147/89 H Pulse Oximetry 99 100 97 Intake/Output Intake/Output: Intake & Output 10/08/20 10/09/20 10/10/20 10/11/20 23:59 23:59 23:59 23:59 Intake Total 1910 2460 2730 1150 Output Total 0023 973 2399 Balance 560 1860 1430 1150 Meds/Results Medications: Active Medications Generic Name Dose Route Start Last Admin Trade Name Freq PRN Reason Stop Dose Admin Acetaminophen 650 mg 10/05/20 19:41 10/05/20 20:39 Acetaminophen 325 Mg Tablet PO 650 mg Q6H PRN Administration Mild Pain (1-3) or Fever Dextrose 12.5 gm 10/05/20 00:45 Dextrose 50% 25 Gm/50 Ml Syringe IV PUSH PRN PRN Hypoglycemia Protocol Epoetin Nathen-epbx 10,000 units 10/08/20 14:00 12
--- NOTE | 2020-10-11 10:52 | PCNWS ---
Weekly nutritional screen. Patient is tolerating current diet-DBCC with Glucerna shakes BID which are providing 240 kcals and 10 gms protein. Labs: Na 148. No further nutritional needs at this time.
[2020-10-11 12:18] LABS: Glucose Point of Care 112 (65-105)
--- NOTE | 2020-10-11 13:19 | PM.IMPN ---
Progress Note: A&P Assessment and Plan (1) Acute kidney injury: Code(s): N17.9 - Acute kidney failure, unspecified Status: Acute Assessment and Plan: Will continue to monitor, pt is on NS at 75, nephrology rounding. recent debridement and wound vac theraphy on right foot (2) Dehydration: Code(s): E86.0 - Dehydration Status: Acute Assessment and Plan: Iv fluids, creat is 3.0 , sodium 148, nephrology rounding. (3) Multifocal pneumonia: Code(s): J18.9 - Pneumonia, unspecified organism Status: Acute Assessment and Plan: iv zosyn day 5, Bc negative to date, Cxr multifocal PNEUMONIA, Cxr shows some improvement. (4) Insulin dependent type 2 diabetes mellitus: Code(s): E11.9 - Type 2 diabetes mellitus without complications; Z79.4 - intermediate frame tender (current) use of insulin Status: Acute Assessment and Plan: Stable on meds (5) Hypertension: Code(s): I10 - Essential (primary) hypertension Status: Inactive Assessment and Plan: Stable on meds, hb is 8.7 (6) Chronic anemia: Code(s): D64.9 - Anemia, unspecified Status: Acute Assessment and Plan: Stable (7) Encephalopathy chronic: Code(s): G93.49 - Other encephalopathy Status: Acute Assessment and Plan: ? secondary to untreated Diabeates? infection ? new stroke ct ordered pt refuses MRi brain ? secondary to alcholol Subjective Date/time seen: 10/11/20 13:19 Interval history: 65-year-old male with hypertension and insulin-dependent type 2 diabetes mellitus who presented to the emergency department earlier today with complaints of weakness. Pt admitted for MEAGAN and pneumonia, uncontrolled Dm, wants to go home. Still appears weak, advised physical therapy, recent admission with OM of foot had debridement at that time. Pt creat slightly improved to 3.0, glucose is better, hbaic is 11. Pt denies cough or fever but pt appears incoherent at times ? metabolic encephalopathy ? stroke CT head reviewed,pt refused MRI brain, does not want to have a MRI of brain. Encephalopathy unsure maybe alcholol related or DM related, or hypernatremia related, as sodium is 148. Review of Systems Review of Systems: All systems reviewed & are unremarkable except as noted in HPI and below Exam Narrative: Exam Narrative: General: Well-developed male, somewhat unclear with stories, incoherent Neck: Supple. Respiratory: clear to auscultation BL no added sounds Cardiovascular: Regular rate and rhythm with S1-S2. Gastrointestinal: Abdomen is soft, nontender, and nondistended with positive bowel sounds. Skin: Warm and dry. Extremities: pt has sock and dressing on foot Neurological: Alert. Speech is clear. No facial asymmetry. Psychiatric: Odd mood and flat affect. Difficult historian. Objective Data Vital Signs Vital Signs: Vital Signs - 24 hr 10/10/20 14:00 10/10/20 22:00 10/11/20 06:00 Temperature 37.2 C 37.2 C 36.9 C Pulse Rate 106 H 96 97 Respiratory Rate 20 20 20 Blood Pressure 153/95 H 160/96 H 147/89 H Pulse Oximetry 99 100 97 Intake/Output Intake/Output: Intake & Output 10/08/20 10/09/20 10/10/20 10/11/20 23:59 23:59 23:59 23:59 Intake Total 1910 2460 2730 1150 Output Total 6770 512 3923 Balance 560 1860 1430 1150 Meds/Results Medications: Active Medications Generic Name Dose Route Start Last Admin Trade Name Freq PRN Reason Stop Dose Admin Acetaminophen 650 mg 10/05/20 19:41 10/05/20 20:39 Acetaminophen 325 Mg Tablet PO 650 mg Q6H PRN Administration Mild Pain (1-3) or Fever Dextrose 12.5 gm 10/05/20 00:45 Dextrose 50% 25 Gm/50 Ml Syringe IV PUSH PRN PRN Hypoglycemia Protocol Epoetin Nathen-epbx 10,000 units 10/08/20 14:00 10/10/20 15:02 Epoetin Nathen-Epbx 10,000 Units/Ml Vial SUB-Q 10,000 units TuTa@1400 ZELDA Administration Folic Acid 1 mg 10/11/20 09:00 10/11/20
--- NOTE | 2020-10-11 13:39 | PCPTNOTE ---
Addendum entered by Michael Stanton, COMBAT SYSTEMS ENGINEER 10/11/20 13:47: I called patient's Mitchell to inform her of patient's refusal of therapy this afternoon. She states that John was on the other phone line and informed her of the same. Original Note: Patient refused treatment stating I am being held her against my will and that is against the law! I need to gat out of her today! I am calling someone to pick me up! Attempted to educate patient on the importance of participating in therapy and need for medical care at the hospital. Patient states you all are just keeping me here! I know what I am doing! I called patient's Mitchell to inform her that patient munguia
[2020-10-11 16:07] LABS: Chloride Rand Ur 27 mmol/L (32-290); Chloride/Creatinine Rand Ur 26 (23-275); Creatinine Random Urine 102 mg/dL (20-320)
--- NOTE | 2020-10-11 16:13 | WPDCN ---
[facility] Data of Consult Date/Time: 10/11/20 16:13 Requesting Physician: Lana Gilbert MD Primary Care Provider: Gladys Wilcox, Consult Narrative Narrative: Diagnosis: None. Patient declines Psychiatric Evaluation Plan: None due to patient declining Consultation Chief Complaint: John Mendoza is a 65 year old male whose consultation was ordered by Doug Sainz MD a poor behavioral changes and dementia in the context of pharmacologic noncompliance. Review of System: Not done due to patient declining Psychiatric Consultation Mental Status Exam: Not done due patient declining Psychiatric Consultation History of present illness: Nurses report: Patient has been exposing himself; and on 1 occasion estimate and the staff to remove her clothes and get into bed with him. He also has been cursing and has been giving staff a hard time. When Seema come of that insurance healthcare consultant lb not attempting to do a mini-mental status exam the patient was most resistive to giving answers to the questions. The insurance healthcare consultant eventually had to the mini-mental status exam. Patient encounter with psychiatrist: Patient declined psychiatric evaluation gracefully. He insists that he has no need for psychiatric care. His nurse, Sveta, was present when the patient was declining psychiatric consultation. Patient was informed that I would be happy to return at some future point he should change his. In such a case he would have to do in his ask 1 of his nurses are doctors to contact me. Psychiatric history: Deferred Past medical history: Recent onset insulin-dependent diabetes mellitus (these hemoglobin A1c is 12.2) Pneumonia Uremia (BUN is 34; creatinine is 3.00) Right foot fifth ray amputation Umbilical hernia right inguinal hernia Anemia of unknown etiology ( hemoglobin is 8.7 ) Allergies: No known drug allergies Smoking history: None Alcohol history: None Drug history: None Past family social history: See care coordination biopsychosocial evaluation. 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 Patient's , Mitchell, is his surrogate decision maker. He is full code. He has four children and eight grandchidren. [facility] Past Medical History Medical History (Updated 10/10/20 @ 17:30 by Jake Acosta MD) Chronic anemia Diabetic ulcer of right foot (~08/2020) Hypernatremia Hypertension Insulin dependent type 2 diabetes mellitus Hemoglobin A1c was 12.2% in August 2020. Osteomyelitis (~08/2020) Right 5th metatarsal osteomyelitis, status post ray amputation. 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 He lives with his and they have 4 adult children and 8 grandchildren. He is a lifelong nonsmoker and denies alcohol and illicit substance use. His , Mitchell, is his surrogate decision maker and he wishes to be a full code. Spiritual care concerns: No Meds Home Medications and Allergies Home Medications Medication Instructions Recorded Confirmed Type foam bandage [Mepilex] #30 ea 09/25/20 10/04/20 Rx insulin glargine [Lantus U-100 11 units SUBCUT HS 90 Days #1 vial 09/25/20 10/04/20 Rx Insulin] [id number]-[id number]-[id number] 13.5 g IV DAILY 34 Days #89666 ml 09/25/20 10/04/20 Rx [Zosyn in dextrose (iso-osm)] insulin syringe-needle U-100 [BD #100 ea 09/26/20 10/04/20 Rx Insulin Syringe] Allergies Allergy/AdvReac Type Severity Reaction Status Date / Time No Known Allergies Allergy Verified 10/04/20 09:21 Vital Signs Vital Signs - 24 hr 09/24
[2020-10-11 18:08] LABS: Glucose Point of Care 94 (65-105)
--- NOTE | 2020-10-11 18:34 | PC.NURSE ---
1640 here to see pt, pt refused to talk to refused visit
[2020-10-11 20:03] LABS: Glucose Point of Care 95 (65-105)
[2020-10-11] MEDS: INSULIN GLARGINE (*BKC) 100 UNITS/ML 11 UNITS SUB-Q (20:51)
[2020-10-11 20:53] VITALS: BP 152/81; PULSE 95; RESP 20; TEMP 36.8; O2SAT 98
[2020-10-11 21:21] LABS: Glucose Point of Care 91 (65-105)
[2020-10-12] MEDS: CENTRAL LINE FLUSH 10 ML IV PUSH ×2 (05:17→12:56)
[2020-10-12 05:59] VITALS: BP 158/89; PULSE 92; RESP 20; TEMP 36.6; O2SAT 98
[2020-10-12 06:39] LABS: Basophils Percent Auto 0.3 % (0.2-1.2); Eosinophils Absolute Auto 0.2 K/mm3 (0-0.3); Eosinophils Percent Auto 2.1 % (0-4.4); Hematocrit 25.3 % (42.0-52.0); Immature Granulocyte Absolute 0.16 K/mm3 (0.00-0.031); Immature Granulocyte Percent A 2.3 % (0-0.5); Lymphocytes Absolute Auto 0.69 K/mm3 (0.9-3.2); Lymphocytes Percent Auto 9.7 % (18.3-44.2); Mean Corpuscular HGB Conc 31.6 g/dl (32-36); Mean Corpuscular Hemoglobin 26.1 pg (26-34); Mean Corpuscular Volume 82.7 fl (80-100); Mean Platelet Volume 9.2 fl (7.4-10.4); Monocytes Absolute Auto 0.5 K/mm3 (0.1-0.6); Monocytes Percent Auto 7.6 % (2.6-8.5); Neutrophils Absolute Auto 5.5 K/mm3 (1.3-6.7); Platelet Count Result 190 k/mm3 (150-375); Red Blood Count 3.06 M/mm3 (4.6-6.20); Red Cell Distribution Width 14.4 % (11.5-14.5); White Blood Count 7.1 K/mm3 (4.5-10.0)
[2020-10-12 06:55] LABS: Albumin Level 2.5 g/dL (3.5-5.1); Anion Gap 3 mmol/L (8-16); Blood Urea Nitrogen 29 mg/dL (9-20); Calcium 7.5 mg/dL (8.4-10.2); Carbon Dioxide 23 mmol/L (22-30); Chloride 122 mmol/L (98-107); Estimated CRCL calculation 20 ml/min; Estimated Glomerular Filt Rate 27; Glucose 90 mg/dL (75-110); Potassium 3.9 mmol/L (3.4-5.0); Sodium 148 mmol/L (137-145)
[2020-10-12 07:51] LABS: Microcytosis 1+ (NORMAL); Platelet Estimate Adequate (Adequate)
[2020-10-12] MEDS: MULTIVITAMINS THERAPEUTIC TAB (*BKC) 1 TABLET PO (08:45)
[2020-10-12] MEDS: FOLIC ACID 1 MG TABLET PO (08:46)
[2020-10-12] MEDS: THIAMINE HCL 100 MG TABLET PO (08:46)
[2020-10-12] MEDS: HEPARIN SODIUM 5,000 UNITS/ML VIAL 5000 UNITS SUB-Q (08:46)
[2020-10-12 08:51] LABS: Glucose Point of Care 90 (65-105)
--- NOTE | 2020-10-12 09:21 | PCPTNOTE ---
Patient at first agreed to work with therapy. He then went on about how he is being lied to about being discharged and that he is already strong. When attempted to start with supine exercises patient refused to work with therapist. Called and LVM for patient's Verdis about refusal. Will follow up as time allows.
[2020-10-12] MEDS: SODIUM CHLORIDE 0.45% 1,000 ML 75 ML IV CONT (11:04)
--- NOTE | 2020-10-12 12:00 | PCPTNOTE ---
Attempted therapy a second time this date, patient states he is being discharged and does not want therapy at this time. Will follow up next business day if patient is still on list.
[2020-10-12 12:49] LABS: Glucose Point of Care 103 (65-105)
[2020-10-12] MEDS: EPOETIN ALFA-EPBX 10,000 UNITS/ML VIAL 10000 UNITS SUB-Q (13:17)
--- NOTE | 2020-10-12 13:44 | PM.DS ---
DS: Admitting Diagnosis Admitting Diagnosis Admitting Diagnosis: WEAKNESS DS: Discharge Diagnosis Discharge Diagnosis (1) Acute kidney injury: Code(s): N17.9 - Acute kidney failure, unspecified Status: Acute Assessment and Plan: Creat improved to 2.9 with hydration sodium is 148 after hydration. Pt adviced to drink plenty of water, Pt to follow with Dr Acosta with BMP. (2) Dehydration: Code(s): E86.0 - Dehydration Status: Acute Assessment and Plan: Pt received Iv fluids, Nephrology rounding. (3) Multifocal pneumonia: Code(s): J18.9 - Pneumonia, unspecified organism Status: Acute Assessment and Plan: iv zosyn day 6, Bc negative to date, Cxr multifocal PNEUMONIA, Cxr shows some improvement. Pt can be discharged on augmentin.Picc to be removed prior to discharge. 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 ? secondary to Hypernatremia and dehydration ? uncontrolled DM states pt does not drink alcholol Pt had refusing MRI brain and psych evaluation or further evaluation for his encehalopathy. DS: Summary Hospital Course Hospital Course: 65-year-old male with hypertension and insulin-dependent type 2 diabetes mellitus who presented to the emergency department earlier today with complaints of weakness. Pt admitted for MEAGAN and pneumonia, uncontrolled Dm, wants to go home. Still appears weak, advised physical therapy, recent admission with OM of foot had debridement at that time. Pt creat slightly improved to 2.9, glucose is better, hbaic is 11. Pt denies cough or fever but pt appears incoherent at times ? metabolic encephalopathy ? stroke CT head reviewed,pt refused MRI brain, does not want to have a MRI of brain. Encephalopathy unsure maybe poorly DM related, infection related or hypernatremia related, as sodium is 148. Pt refused MRI and psych evaluation for encephalopathy. Long discussion with prior to discharge pt will need better DM control, complete his ABX course and drink more water. Pt to follow with Nephrology, orthopedics and his pCP . Time Spent with Patient Time attestation: Total time spent providing and/or coordinating discharge services:40 minutes on day of discharge Exam Narrative: Exam Narrative: General: Well-developed male, somewhat unclear with stories, incoherent Neck: Supple. Respiratory: clear to auscultation BL no added sounds Cardiovascular: Regular rate and rhythm with S1-S2. Gastrointestinal: Abdomen is soft, nontender, and nondistended with positive bowel sounds. Skin: Warm and dry. Extremities: pt has sock and dressing on foot Neurological: Alert. Speech is clear. No facial asymmetry. Psychiatric: Odd mood and flat affect. Difficult historian. DS: Data Data Completed and Pending Labs on day of discharge: Labs from last 24 hours 10/12/20 10/12/20 10/12/20 12:47 08:48 06:22 WBC 7.1 RBC 3.06 L Hgb 8.0 L Hct 25.3 L MCV 82.7 MCH 26.1 MCHC 31.6 L RDW 14.4 Plt Count 190 MPV 9.2 Immature Gran % (Auto) 2.3 H Neut % (Auto) 78.0 H Lymph % (Auto) 9.7 L Sully % (Auto) 7.6 Eos % (Auto) 2.1 Baso % (Auto) 0.3 Lymph # (Auto) 0.69 L Sully # (Auto) 0.5 Eos # (Auto) 0.2 Baso # (Auto) 0.0 Abs Immat Gran (auto) 0.16 H Absolute Neuts (auto) 5.
--- NOTE | 2020-10-12 16:11 | PC.NURSE ---
1500 notified pt of discharge. instructed her to continue his home iv antibiotics and wound care on right foot, wound vac removed clean dry dressing with surgical shoe applied for pt to go home with
[2020-10-14 02:05] LABS: Cryoglobulin, QL Negative (Negative)
[2020-10-14 04:20] LABS: Osmolality, Urine 338 mOsm/kg (50-1200)
== END 2020-10-12 15:45 | disposition home health service (06) | DRG 194 ==
LOC: ANHED 12:52 → ANH3MEDSUR 14:10
PROVIDERS: Internal Medicine Nephrology; Physician Assistant; Admitting Provider Family Medicine; Emergency Provider Emergency Medicine; PCP Internal Medicine; Visit Provider Family Medicine
DX: J18.9 Pneumonia, unspecified organism (principal); N17.9 Acute kidney failure, unspecified; E87.0 Hyperosmolality and hypernatremia; Z20.828 Contact with and (suspected) exposure to other viral communicable diseases; E11.9 Type 2 diabetes mellitus without complications; D64.9 Anemia, unspecified; E86.0 Dehydration
CPT/HCPCS: 36415; 70450; 71045; 71046; 74176; 76775; 77071; 80048; 80053; 80069; 80074; 81001; 81050; 82436; 82550; 82570; 82595; 83036; 83520; 83605; 83735; 83930; 83935; 84155; 84156; 84165; 84166; 84300; 84443; 85025; 85027; 85610; 85730; 85999; 86021; 86038; 86160; 86225; 86235; 86255; 86706; 87040; 87086; 87635; 93005; 96361; 96365; 97110; 97116; 97161; 97165; 97530; 97535; A9270; C9803; G0378; J0131; J1644; J1815; J2543; J7030; Q5106; U0003

== ENCOUNTER 2020-10-28 11:43 | Outpatient (RCR) | payer BC, SELFPAY ==
[2020-10-03 13:06] LABS: Basophils Percent Auto 0.2 % (0.2-1.2); Eosinophils Percent Auto 0.5 % (0-4.4); Hematocrit 33.6 % (42.0-52.0); Hemoglobin 10.7 g/dL (14.0-18.0); Immature Granulocyte Absolute 0.04 K/mm3 (0.00-0.031); Immature Granulocyte Percent A 0.5 % (0-0.5); Lymphocytes Absolute Auto 0.61 K/mm3 (0.9-3.2); Lymphocytes Percent Auto 7.6 % (18.3-44.2); Mean Corpuscular HGB Conc 31.8 g/dl (32-36); Mean Corpuscular Volume 84.6 fl (80-100); Monocytes Absolute Auto 0.4 K/mm3 (0.1-0.6); Monocytes Percent Auto 5.2 % (2.6-8.5); Neutrophils Absolute Auto 6.9 K/mm3 (1.3-6.7); Platelet Count Result 261 k/mm3 (150-375); Red Blood Count 3.97 M/mm3 (4.6-6.20); Red Cell Distribution Width 13.3 % (11.5-14.5)
[2020-10-03 13:19] LABS: Anion Gap 5 mmol/L (8-16); Blood Urea Nitrogen 54 mg/dL (9-20); Calcium 8.1 mg/dL (8.4-10.2); Carbon Dioxide 28 mmol/L (22-30); Chloride 111 mmol/L (98-107); Estimated Glomerular Filt Rate 18; Glucose 143 mg/dL (75-110); Sodium 144 mmol/L (137-145)
[2020-10-14 17:37] LABS: Hematocrit 23.6 % (42.0-52.0); Hemoglobin 7.5 g/dL (14.0-18.0); Mean Corpuscular HGB Conc 31.8 g/dl (32-36); Mean Corpuscular Hemoglobin 26.9 pg (26-34); Mean Corpuscular Volume 84.6 fl (80-100); Mean Platelet Volume 10.1 fl (7.4-10.4); Platelet Count Result 223 k/mm3 (150-375); Red Blood Count 2.79 M/mm3 (4.6-6.20); White Blood Count 8.9 K/mm3 (4.5-10.0)
[2020-10-14 17:58] LABS: Anion Gap 5 mmol/L (8-16); Blood Urea Nitrogen 22 mg/dL (9-20); CRP 1.6 mg/dL (<1.0); Calcium 7.7 mg/dL (8.4-10.2); Carbon Dioxide 23 mmol/L (22-30); Chloride 116 mmol/L (98-107); Estimated Glomerular Filt Rate 30; Glucose 246 mg/dL (75-110); Sodium 144 mmol/L (137-145)
[2020-10-14 18:10] LABS: Lymphocytes Absolute Manual 1.06 K/mm3 (1.1-4.5); Monocytes Absolute Manual 0.17 K/mm3 (0.1-0.90); Monocytes Percent Manual 2 % (3-9); Neutrophils Percent Manual 86 % (46-73); Nucleated Red Blood Cells 2 %; Platelet Estimate Adequate (Adequate); Total Cells Counted 100
[2020-10-17 13:33] LABS: Basophils Percent Auto 0.3 % (0.2-1.2); Eosinophils Absolute Auto 0.1 K/mm3 (0-0.3); Eosinophils Percent Auto 1.4 % (0-4.4); Hematocrit 24.3 % (42.0-52.0); Hemoglobin 7.8 g/dL (14.0-18.0); Immature Granulocyte Absolute 0.09 K/mm3 (0.00-0.031); Immature Granulocyte Percent A 1.1 % (0-0.5); Lymphocytes Absolute Auto 0.58 K/mm3 (0.9-3.2); Lymphocytes Percent Auto 7.3 % (18.3-44.2); Mean Corpuscular HGB Conc 32.1 g/dl (32-36); Mean Corpuscular Volume 84.1 fl (80-100); Mean Platelet Volume 9.2 fl (7.4-10.4); Monocytes Absolute Auto 0.7 K/mm3 (0.1-0.6); Monocytes Percent Auto 9.3 % (2.6-8.5); Neutrophils Absolute Auto 6.4 K/mm3 (1.3-6.7); Neutrophils Percent Auto 80.6 % (45.5-73.1); Platelet Count Result 217 k/mm3 (150-375); Red Blood Count 2.89 M/mm3 (4.6-6.20); Red Cell Distribution Width 15.9 % (11.5-14.5); White Blood Count 7.9 K/mm3 (4.5-10.0)
[2020-10-17 13:44] LABS: Anion Gap 4 mmol/L (8-16); Blood Urea Nitrogen 19 mg/dL (9-20); Calcium 7.7 mg/dL (8.4-10.2); Carbon Dioxide 24 mmol/L (22-30); Chloride 111 mmol/L (98-107); Estimated Glomerular Filt Rate 33; Glucose 169 mg/dL (75-110); Potassium 3.9 mmol/L (3.4-5.0); Sodium 139 mmol/L (137-145)
[2020-10-21 11:59] LABS: Anion Gap 6 mmol/L (8-16); Blood Urea Nitrogen 17 mg/dL (9-20); CRP 1.6 mg/dL (<1.0); Calcium 7.8 mg/dL (8.4-10.2); Carbon Dioxide 22 mmol/L (22-30); Chloride 109 mmol/L (98-107); Estimated Glomerular Filt Rate 33; Glucose 135 mg/dL (75-110); Potassium 3.7 mmol/L (3.4-5.0); Sodium 137 mmol/L (137-145)
[2020-10-21 12:04] LABS: Hematocrit 25.7 % (42.0-52.0); Hemoglobin 8.3 g/dL (14.0-18.0); Mean Corpuscular HGB Conc 32.3 g/dl (32-36); Mean Corpuscular Hemoglobin 27.1 pg (26-34); Mean Platelet Volume 8.9 fl (7.4-10.4); Platelet Count Result 228 k/mm3 (150-375); Red Blood Count 3.06 M/mm3 (4.6-6.20); Red Cell Distribution Width 16.2 % (11.5-14.5); White Blood Count 6.4 K/mm3 (4.5-10.0)
[2020-10-24 10:43] LABS: Basophils Percent Auto 0.2 % (0.2-1.2); Eosinophils Absolute Auto 0.5 K/mm3 (0-0.3); Hematocrit 25.7 % (42.0-52.0); Immature Granulocyte Absolute 0.01 K/mm3 (0.00-0.031); Immature Granulocyte Percent A 0.2 % (0-0.5); Lymphocytes Absolute Auto 0.63 K/mm3 (0.9-3.2); Lymphocytes Percent Auto 10.8 % (18.3-44.2); Mean Corpuscular HGB Conc 31.1 g/dl (32-36); Mean Corpuscular Hemoglobin 26.2 pg (26-34); Mean Corpuscular Volume 84.3 fl (80-100); Mean Platelet Volume 9.2 fl (7.4-10.4); Monocytes Absolute Auto 0.7 K/mm3 (0.1-0.6); Monocytes Percent Auto 12.2 % (2.6-8.5); Neutrophils Absolute Auto 3.9 K/mm3 (1.3-6.7); Neutrophils Percent Auto 67.6 % (45.5-73.1); Platelet Count Result 263 k/mm3 (150-375); Red Blood Count 3.05 M/mm3 (4.6-6.20); Red Cell Distribution Width 16.3 % (11.5-14.5); White Blood Count 5.8 K/mm3 (4.5-10.0)
[2020-10-24 11:00] LABS: Anion Gap 5 mmol/L (8-16); Blood Urea Nitrogen 19 mg/dL (9-20); Calcium 7.6 mg/dL (8.4-10.2); Carbon Dioxide 22 mmol/L (22-30); Chloride 109 mmol/L (98-107); Estimated Glomerular Filt Rate 30; Glucose 163 mg/dL (75-110); Potassium 4.1 mmol/L (3.4-5.0); Sodium 136 mmol/L (137-145)
[2020-10-28 12:22] LABS: Basophils Percent Auto 0.3 % (0.2-1.2); Eosinophils Absolute Auto 1.1 K/mm3 (0-0.3); Eosinophils Percent Auto 17.8 % (0-4.4); Hematocrit 23.7 % (42.0-52.0); Hemoglobin 7.5 g/dL (14.0-18.0); Immature Granulocyte Absolute 0.02 K/mm3 (0.00-0.031); Immature Granulocyte Percent A 0.3 % (0-0.5); Lymphocytes Absolute Auto 0.87 K/mm3 (0.9-3.2); Lymphocytes Percent Auto 14.5 % (18.3-44.2); Mean Corpuscular HGB Conc 31.6 g/dl (32-36); Mean Corpuscular Hemoglobin 26.8 pg (26-34); Mean Corpuscular Volume 84.6 fl (80-100); Mean Platelet Volume 9.1 fl (7.4-10.4); Monocytes Absolute Auto 0.7 K/mm3 (0.1-0.6); Neutrophils Absolute Auto 3.3 K/mm3 (1.3-6.7); Neutrophils Percent Auto 55.1 % (45.5-73.1); Platelet Count Result 251 k/mm3 (150-375); Red Cell Distribution Width 16.4 % (11.5-14.5)
[2020-10-28 12:42] LABS: Anion Gap 3 mmol/L (8-16); Blood Urea Nitrogen 18 mg/dL (9-20); CRP 1.8 mg/dL (<1.0); Calcium 7.8 mg/dL (8.4-10.2); Carbon Dioxide 25 mmol/L (22-30); Chloride 109 mmol/L (98-107); Estimated Glomerular Filt Rate 32; Glucose 105 mg/dL (75-110); Potassium 4.1 mmol/L (3.4-5.0); Sodium 137 mmol/L (137-145)
== END 2021-01-01 23:59 | disposition home or self-care (01) ==
LOC: HOME HLTH 11:43
PROVIDERS: PCP Internal Medicine Infectious Disease; Visit Provider Internal Medicine Infectious Disease
DX: L03.119 Cellulitis of unspecified part of limb (principal); A41.9 Sepsis, unspecified organism; E11.9 Type 2 diabetes mellitus without complications; I10 Essential (primary) hypertension
CPT/HCPCS: 80048; 85025; 85027; 86140

== ENCOUNTER → 2020-12-09 01:53 | Outpatient (CLI) | payer BC, SELFPAY ==
[2020-12-09 19:35] LABS: SARS-CoV-2 RNA PCR Negative
== END ==
PROVIDERS: PCP Internal Medicine; Visit Provider Orthopaedic Surgery
DX: Z01.812 Encounter for preprocedural laboratory examination (principal); Z20.822 Contact with and (suspected) exposure to COVID-19
CPT/HCPCS: C9803; U0003; U0005

== ENCOUNTER 2020-12-12 00:54 | Day surgery (SDC) | payer BC, SELFPAY ==
[2020-12-10 09:59] VITALS: BMI 20.8
[2020-12-12] VITALS (9 sets, daily range): BP systolic 94–144; BP diastolic 61–86; PULSE 75–96; RESP 10–18; TEMP 36.4; O2SAT 100; BMI 20.7
--- NOTE | 2020-12-12 07:17 | WPDHPUPDATE1 ---
History and Physical Update Update Date/Time: 12/12/20 07:17 History and Physical has been reviewed, including an updated exam of the patient. There are NO changes in the patient's condition. Covid test negative. Risks, benefits, and alternatives have been discussed and questions answered. Patient agrees to proceed with procedure.
[2020-12-12 11:39] LABS: Glucose Point of Care 106 (65-105)
[2020-12-12] MEDS: KETOROLAC 15 MG/ML VIAL (*BKC) IV PUSH (12:19)
[2020-12-12] MEDS: ACETAMINOPHEN 500 MG TABLET 1000 MG PO (12:19)
[2020-12-12 12:21] LABS: Hematocrit 26.5 % (42.0-52.0)
[2020-12-12] MEDS: LACTATED RINGERS 1,000 ML 30 ML IV CONT (12:21)
--- NOTE | 2020-12-12 12:37 | WPDANESEPPF ---
Anes - Initial Pre Proc Eval Procedure: Operation Date: 12/12/20 11:00 Proposed Procedures p Debridement Of Diabetic Right Foot Ulcer With Graft Application - Denys Sainz MD Date/Time: 12/12/20 12:37 Surgeon: Denys Sainz MD Pre Op Diagnosis: Right Diabetic Foot Ulcer, Right Foot Osteomyeliti Patient Data Age: 65 Gender: M Height: 5 ft 9 in Weight: 63.6 kg Last Vital Signs Temp 36.4 C 12/12/20 11:52 Pulse 96 12/12/20 11:52 Resp 18 12/12/20 11:52 BP 144/84 H 12/12/20 11:52 Pulse Ox 100 12/12/20 11:52 Allergies Allergy/AdvReac Type Severity Reaction Status Date / Time No Known Allergies Allergy Verified 12/12/20 12:29 Home Medications Medication Instructions Recorded Confirmed Type Mepilex #30 ea 09/25/20 10/04/20 Rx insulin syringe-needle U-100 [BD #100 ea 09/26/20 10/04/20 Rx Insulin Syringe] folic acid 1 mg PO DAILY #90 tablet 10/12/20 12/12/20 Rx thiamine HCl (vitamin B1) [Vitamin 100 mg PO QAM #90 tablet 10/12/20 12/12/20 Rx B-1] amlodipine [Norvasc] 5 mg PO DAILY 12/10/20 12/12/20 History clopidogrel [Plavix] 75 mg PO DAILY 12/10/20 12/12/20 History linagliptin [Tradjenta] 5 mg PO DAILY 12/10/20 12/12/20 History metoprolol tartrate 25 mg PO DAILY 12/10/20 12/12/20 History multivitamin [Daily-Nate] 1 tablet PO DAILY 12/10/20 12/12/20 History thiamine mononitrate (vit B1) 100 mg PO DAILY 12/10/20 12/12/20 History zinc sulfate 50 mg PO DAILY 12/10/20 12/12/20 History Laboratory Tests 12/12/20 12/12/20 12/12/20 11:33 12:17 12:17 Hgb 9.0 g/dL L g/dL (14.0-18.0) Hct 26.5 % L % (42.0-52.0) PT Pending INR Pending APTT Pending POC Capillary Glucose 106 mg/dl mg/dl (65-105) Patient hx anesthesia problems: none Family hx anesthesia problems: none PMFSH Past Medical History Medical History Chronic anemia Diabetic ulcer of right foot (~08/2020) Hypernatremia Hypertension Insulin dependent type 2 diabetes mellitus Hemoglobin A1c was 12.2% in August 2020. Osteomyelitis (~08/2020) Right 5th metatarsal osteomyelitis, status post ray amputation. 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 He lives with his and they have 4 adult children and 8 grandchildren. He is a lifelong nonsmoker and denies alcohol and illicit substance use. His , Mitchell, is his surrogate decision maker and he wishes to be a full code. Smoking status: Never smoker Second hand tobacco smoke exposure: No Substance use: never Living arrangements: with family Gender identity (if verbalized by the patient): Male Spiritual care concerns: No Anes - Eval Final PreProcedure Day of Procedure 12/12/20 12:37 Patient weight: normal Heart: regular rate and rhythm Lungs: clear to auscultation Airway: Mallampati scale class II Neurological: alert and oriented Last oral intake: >/= 8 hours ASA classification: III Emergent: no Anesthetic plan: proceed Anesthesia type and monitoring: general LMA and standard monitoring Informed Consent: The patient's anesthetic plan and its attendant risks and benefits were discussed with the patient/family/POA. Questions were solicited and answers provided to the satisfaction of the patient/family/POA.
[2020-12-12] MEDS: ceFAZolin 2 GM/D5W 50 ML 2 GM/50 ML BAG IVPB (12:50)
[2020-12-12 12:58] LABS: INR 0.9; Prothrombin Time 12.9 Seconds (11.1-14.7)
[2020-12-12 13:01] LABS: Partial Thromboplastin Time 34.2 SECONDS (22.3-36.8)
[2020-12-12 14:08] LABS: Glucose Point of Care 91 (65-105)
--- NOTE | 2020-12-12 14:08 | PM.PROC ---
Procedure Note - Detailed Date of procedure: 12/12/20 Pre-op diagnosis: Right Diabetic Foot Ulcer, Right Foot Osteomyeliti Post-op diagnosis: same Procedure performed: Excisional debridement of right foot diabetic ulcer with application graft. Excisional debridement down to muscle layer. Description of procedure: Indications: Patient is a 65-year-old gentleman with diabetes and peripheral neuropathy who had right foot diabetic ulcer with osteomyelitis. Treated with 5th ray amputation and debridement. Complicated by postoperative wound dehiscence and poor wound healing. He has undergone care in the wound center and now has good granulation but an open wound on the lateral aspect of the right foot. He presents now for operative treatment to try and affect healing. What was done: Patient identified in the preoperative holding. Informed consent given. Operative extremity marked. Patient received intravenous antibiotics. Patient brought to the operating room where underwent general anesthetic by anesthesia team. Positioned supine on operating room table. Time-out performed confirming the patient, site of the surgery and the plan. Right foot prepped and draped in usual sterile surgical fashion in a Betadine prep solution. Fifteen blade knife used to debride the right foot diabetic ulcer on the dorsal lateral aspect of the mid and forefoot. Skin, subcutaneous tissue and muscle that was devitalized or nonviable was sharply excised removed and passed off. Good bleeding healthy tissue was left in place. On the plantar aspect at the distal extent the wound extended approximately 2 cm. There was some undermining along the distal plantar fascia. This was debrided with a rongeur. Wound was then thoroughly irrigated antibiotic solution. There was no exposed bone noted. The wound measured 8 cm x 4 cm by 1.5 cm depth at the and. Grafting was then applied. The amniotic membrane was opened on the back table and applied to the soft tissue at the distal extent of the wound which overall lay the 4th metatarsal. Integra prime matrix who fitted with silver was then reconstituted with normal saline. This was applied over the wound bed and as well as packed into the area of undermining on the plantar aspect of the plantar fascia. The amniotic cord was then reconstituted with saline and the wound was covered and sutured into place with 3 0 Monocryl interrupted suture. 0 Prolene interrupted suture was used on the plantar aspect. Sterile dressing applied. The patient was then woken from anesthesia, extubated and taken to the recovery room in stable condition. All sponge, needle, instrument counts were correct at the end of the case. Implants: Arthrex amnion cord 3 x 8 cm. Integra amnioexcel 2 x 3 cm. Integra prime matrix 6 x 6 cm with silver. Anesthesia: GLMA Surgeon: Denys Sainz MD Jockey'S Agent: carpenter assistant installer Estimated blood loss (mL): 10 Tourniquet time (min): 0 Drains: No Packing: No Pathology: none sent Complications: None Condition: stable Disposition: PACU
--- NOTE | 2020-12-13 14:36 | PM.IMHP ---
H&P: HPI History of Present Illness Date/Time: 12/13/20 14:36 Chief Complaint: Right diabetic foot ulcer Narrative: Jonh Mendoza is a 65 year old male with right diabetic foot ulcer and infection including osteomyelitis. Status post 5th ray amputation with wound dehiscence and continued delayed healing right foot. Presents for operative treatment. Has been followed in the Wound Clinic for dressing changes. Course of antibiotics initially. Review of Systems Constitutional: Constitutional: Reports no additional constitutional complaints, Denies chills, Denies fatigue, Denies fever(s), Denies headache(s) and Denies weakness Eyes: Eyes: Denies change in vision ENT: Reports Normal hearing present and Denies headache(s) Cardiovascular: Cardiovascular: Denies chest pain and Denies dyspnea Respiratory: Respiratory: Denies cough, Denies dyspnea and Denies wheezing Gastrointestinal: Gastrointestinal: Denies constipation, Denies diarrhea, Denies nausea and Denies vomiting Genitourinary: Genitourinary: Denies hematuria, Denies dysuria and Denies urinary urgency Musculoskeletal: Musculoskeletal: Reports as per HPI, Denies numbness and Denies tingling Integumentary/Breasts: Skin/Breast: Reports as per HPI Neurologic: Reports as per HPI, Reports Normal hearing present, Denies headache(s), Denies numbness, Denies tingling and Denies weakness Psychiatric: Psychiatric: Reports no additional psychiatric complaints Endocrine: Endocrine: Reports no additional endocrine complaints and Denies fatigue Hematologic/Lymphatic: Hematologic/Lymphatic: Reports no additional hematologic/lymphatic complaints Allergic/Immunologic: Allergic/Immunologic: Reports no additional allergic/immunologic complaints and Denies wheezing PMFSH Past Medical History Medical History Chronic anemia Diabetic ulcer of right foot (~08/2020) Hypernatremia Hypertension Insulin dependent type 2 diabetes mellitus Hemoglobin A1c was 12.2% in August 2020. Osteomyelitis (~08/2020) Right 5th metatarsal osteomyelitis, status post ray amputation. 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 He lives with his and they have 4 adult children and 8 grandchildren. He is a lifelong nonsmoker and denies alcohol and illicit substance use. His , Mitchell, is his surrogate decision maker and he wishes to be a full code. Smoking status: Never smoker Second hand tobacco smoke exposure: No Substance use: never Gender identity (if verbalized by the patient): Male Spiritual care concerns: No Meds Home Medications and Allergies Home Medications Medication Instructions Recorded Confirmed Type Mepilex #30 ea 09/25/20 10/04/20 Rx insulin syringe-needle U-100 [BD #100 ea 09/26/20 10/04/20 Rx Insulin Syringe] folic acid 1 mg PO DAILY #90 tablet 10/12/20 12/12/20 Rx thiamine HCl (vitamin B1) [Vitamin 100 mg PO QAM #90 tablet 10/12/20 12/12/20 Rx B-1] Tradjenta 5 mg PO DAILY 12/10/20 12/12/20 History amlodipine [Norvasc] 5 mg PO DAILY 12/10/20 12/12/20 History clopidogrel [Plavix] 75 mg PO DAILY 12/10/20 12/12/20 History metoprolol tartrate 25 mg PO DAILY 12/10/20 12/12/20 History multivitamin [Daily-Nate] 1 tablet PO DAILY 12/10/20 12/12/20 History thiamine mononitrate (vit B1) 100 mg PO DAILY 12/10/20 12/12/20 History zinc sulfate 50 mg PO DAILY 12/10/20 12/12/20 History Allergies Allergy/AdvReac Type Severity Reaction Status Date / Time No Known Allergies A
== END 2020-12-12 15:35 | disposition home or self-care (01) ==
PROVIDERS: Anesthesiology; PCP Internal Medicine; Visit Provider Orthopaedic Surgery
PROC: (CPT 11043; principal; 2020-12-12 11:00)
DX: E11.621 Type 2 diabetes mellitus with foot ulcer (principal); L97.519 Non-pressure chronic ulcer of other part of right foot with unspecified severity; M86.8X7 Other osteomyelitis, ankle and foot; E11.69 Type 2 diabetes mellitus with other specified complication; I10 Essential (primary) hypertension; D64.9 Anemia, unspecified; Z79.4 Long term (current) use of insulin; Z79.02 Long term (current) use of antithrombotics/antiplatelets
CPT/HCPCS: 11043; 11046; 15275; 15276; 36415; 82948; 85014; 85018; 85610; 85730; A9270; J0690; J1885; J2250; J2405; J2704; J3010; J7120; Q4110; Q4137

== ENCOUNTER 2020-12-20 07:28 | Outpatient (RCR) | payer BC, SELFPAY ==
[2020-09-27 07:50] VITALS: TEMP 37.7; BMI 22.4
[2020-09-27 08:23] LABS: Glucose Point of Care 116 (65-105)
--- NOTE | 2020-09-27 08:42 | PM.PNORT ---
Progress Note: A&P Assessment and Plan (1) Osteomyelitis of ankle or foot, right, acute: Code(s): M86.171 - Other acute osteomyelitis, right ankle and foot Status: Acute Assessment and Plan: Nine days status post right foot 5th ray amputation. Patient unable to have wound VAC due to insurance reasons. He is still on intravenous antibiotics. Concerns for poor oral intake and nutrition. He states he had used just has no appetite. Also concern for mentation. Bizarre behavior at the time of discharge 2 days ago. Now stating that he wants his foot cut off. Long discussion with the patient and his regarding right foot condition. His blood flow studies showed relatively good flow. His MRI did not show any other signs of infection. He is currently on intravenous antibiotics. We discussed improved function and overall ability with remaining foot and able to weightbear. Recommend continue with daily dressing changes with silver gel and Mepilex. Patient and seem reassured. Follow-up in 1 week for re-evaluation. Patient has home health in place for interval dressing changes and evaluation. Subjective Subjective Date/Time Seen: 09/27/20 08:42 patient returns for postoperative visit [facility] wound clinic. Nine days status post right 5th ray amputation. Patient reports confusion at the time of his discharge from the hospital 2 days ago. He was very agitated and wanted to leave immediately. By his report he did not bring any of the diabetic Education, prescriptions or medication with him. Denies fever chills. Pain right foot slightly improved. Patient and states he is very poor appetite and oral intake. Exam Const: General: comfortable and no acute distress Resp: Effort & Inspection: normal respiratory effort Cardio: Rate: regular rate Rhythm: regular rhythm GI: Inspection: non-distended GI Palp: Yes Soft to palpation and No Tenderness to palpation present (GI) Skin: Wounds: wounds noted (Right Lateral Forefoot ) Other: Right foot dressing removed. Drainage improved. Minimal erythema. Incision with mild dehiscence unchanged from appearance in hospital. Sutures intact. Lesser toes and hallux with some atrophic skin changes but otherwise no erythema. Unable to palpate pulses. Silver gel, Mepilex and gauze dressing applied. Neuro: Cognition (Neuro): normal cognition Speech: normal speech Other: decreased sensation RIGHT foot Extrem: Right lower extremity: lower leg (Negative Jay's Sign ) Details: no tenderness, ankle (+ankle dorsiflexion/plantarflexion ) and foot (5th ray amputation ) Details: tenderness (diffuse ), warmth (mild ) Location: of the lateral foot Location: distally, in the mid-section and at the base of the 5th metatarsal, vascular exam (palpable ) Details: dorsalis pedis pulse present and motor-sensory exam Details: light-touch abnormal Location: in the great toe, in the 2nd digit, in the 3rd digit and in the 4th digit; not in the 5th digit (absent ) Other: Ulcer on the lateral aspect of the right foot approximately 4 x 3 cm with 1 cm of tunneling toward the medial plantar 4th metatarsal and toe. Wound clinic note for exact dimensions. Psych: Mental Status: mental status grossly normal Affect: normal affect Objective Data Labs Labs: Laboratory Results - last 24 hr 09/27/20 08:18 POC Capillary Glucose 116 H
--- NOTE | 2020-10-04 09:59 | PM.PNORT ---
Progress Note: A&P Assessment and Plan (1) Osteomyelitis of ankle or foot, right, acute: Code(s): M86.171 - Other acute osteomyelitis, right ankle and foot Status: Ruled-out Assessment and Plan: 16 days status post right foot 5th ray amputation. Patient unable to have wound VAC due to insurance reasons. He is still on intravenous antibiotics. Concerns for poor oral intake and nutrition. He states he had used just has no appetite. Overall mentation improved. He is much more comfortable and compliant today. Recommend continue with daily dressing changes with silver gel and Mepilex. Patient and seem reassured. Follow-up in 1 week for re-evaluation. Patient has home health in place for interval dressing changes and evaluation. Requires debridement today. Performed with 15 blade knife without difficulty. Subjective Subjective Date/Time Seen: 10/04/20 09:59 Patient returns for follow-up [facility] patient wound clinic. Patient family report very good pain control. He has still has poor appetite. The had trouble with oral intake. Denies fever chills. Dressing changes to the right foot with help of home health. Exam Const: General: comfortable and no acute distress Resp: Effort & Inspection: normal respiratory effort Cardio: Rate: regular rate Rhythm: regular rhythm GI: Inspection: non-distended GI Palp: Yes Soft to palpation and No Tenderness to palpation present (GI) Skin: Wounds: wounds noted (Right Lateral Forefoot ) Other: Right foot dressing removed. Drainage improved. Minimal erythema. Incision with mild dehiscence unchanged from appearance in hospital. Sutures intact. Lesser toes and hallux with some atrophic skin changes but otherwise no erythema. Unable to palpate pulses. Silver gel, Mepilex and gauze dressing applied. Neuro: Cognition (Neuro): normal cognition Speech: normal speech Other: decreased sensation RIGHT foot Extrem: Right lower extremity: lower leg (Negative Jay's Sign ) Details: no tenderness, ankle (+ankle dorsiflexion/plantarflexion ) and foot (5th ray amputation ) Details: tenderness (diffuse ), warmth (mild ) Location: of the lateral foot Location: distally, in the mid-section and at the base of the 5th metatarsal, vascular exam (palpable ) Details: dorsalis pedis pulse present and motor-sensory exam Details: light-touch abnormal Location: in the great toe, in the 2nd digit, in the 3rd digit and in the 4th digit; not in the 5th digit (absent ) Other: Ulcer on the lateral aspect of the right foot approximately 8.6x 2.7 cm with 1.1 cm of tunneling toward the medial plantar 4th metatarsal and toe. Wound clinic note for exact dimensions. Necrotic tissue, slough and devitalized tissue noted at the distal extent of the wound. Psych: Mental Status: mental status grossly normal Affect: normal affect
--- NOTE | 2020-10-04 10:04 | PM.PROC ---
Procedure Note - Detailed Date of procedure: 10/04/20 Pre-op diagnosis: open amputation R foot, wound vac dressing changes Post-op diagnosis: same Procedure performed: Excisional debridement right foot Description of procedure: Patient and site identified. Informed consent obtained. Right foot prepped and draped with usual sterile fashion using alcohol prep solution. Fifteen blade knife used to sharply excise skin, subcutaneous tissue and muscle from the lateral right foot. All devitalized tissue removed. Minimal amount of bleeding noted. Sterile dressing applied. Anesthesia: none Surgeon: Denys Sainz MD Estimated blood loss (mL): 1 Drains: No Packing: Yes Pathology: none sent Complications: No immediate complications Condition: stable Disposition: other (To home with )
--- NOTE | 2020-10-29 16:10 | PM.PNORT ---
Progress Note: A&P Assessment and Plan (1) Osteomyelitis of ankle or foot, right, acute: Code(s): M86.171 - Other acute osteomyelitis, right ankle and foot Status: Ruled-out Assessment and Plan: Five weeks, 6 days status post right 5th ray amputation and excision of osteomyelitis. The patient has had a subsequent readmission to the hospital and is now being treated with IV antibiotics longer due to pneumonia. The patient presents to the [facility] today for re-evaluation of his right forefoot wound. He has been performing daily dressing changes with silver gel and covering with an ABD pad and Kerlix. Wound bed today with some new granulation tissue noted. Some slough off and necrotic dry tissue noted as well. Debridement performed under sterile conditions to remove all devitalized tissue. Consent obtained. Procedure performed without difficulty. No postoperative complications. Patient to continue daily dressing changes with silver gel, ABD pad and cover dry. Subjective Subjective Date/Time Seen: 10/29/20 16:10 Patient presents to [facility] today for re-evaluation of right forefoot postoperative wound in diabetic foot ulcer. Patient was discharged from the hospital home on IV antibiotics for pneumonia. the patient was previously to be on IV Zosyn through October 29 however that has been extended due to new diagnosis of pneumonia from which she was discharged from the hospital on October 12. Per the discharge record, the patient should be on IV antibiotics for approximately 16 days status post discharge. He denies fever, chills, night sweats, nausea, vomiting or diarrhea. He reports well-controlled blood glucose levels at home. His is been performing home dressing changes to his right foot without complication. He continues to utilize the postop shoe. He denies pain. Review of Systems Review of Systems: All systems reviewed & are unremarkable except as noted in HPI and below Constitutional: Constitutional: Reports fatigue and Reports weakness Cardiovascular: Cardiovascular: Denies chest pain, Reports pedal edema and Denies lightheadedness Respiratory: Respiratory: Denies cough and Denies dyspnea Gastrointestinal: Gastrointestinal: Denies nausea and Denies vomiting Genitourinary: Genitourinary: Reports no additional male genitourinary complaints Musculoskeletal: Musculoskeletal: Reports as per HPI Exam Const: General: comfortable and no acute distress Resp: Effort & Inspection: normal respiratory effort Cardio: Rate: regular rate Rhythm: regular rhythm GI: Inspection: non-distended GI Palp: Yes Soft to palpation and No Tenderness to palpation present (GI) Skin: Wounds: wounds noted (Right Lateral Forefoot ) Other: Right lateral foot dressing removed. Mild serosanguineous drainage. Minimal erythema. Surrounding incisional wound dehiscence with necrotic cap covering which is dry. Open area over the lateral 5th ray with soft tissue sloughing, New granulation tissue noted. Neuro: Cognition (Neuro): normal cognition Speech: normal speech Other: decreased sensation RIGHT foot Extrem: Right lower extremity: lower leg (Negative Jay's Sign ) Details: no tenderness, ankle (+ankle dorsiflexion/plantarflexion ) and foot (5th ray amputation ) Details: tenderness (diffuse ) Location: of the base of the 5th metatarsal, warmth (mild ) Location: of the lateral foot Location: distally, in the mid-section and at the base of the 5th metatarsal, vascular exam (palpable ) Details: dorsalis pedis pulse present and motor-sensory exam Details: light-touch abnormal Location: in the great toe, in the 2nd digit, in the 3rd digit and in the 4th digit; not in the 5th digit (absent ) Other: Ulcer on the lateral aspect of the right foot approximately 8 x 7.5 x 1.0 cm. Unable to Probe to the 4th ray at this time.. Slough and devitalized tissue noted at the distal extent of the wound, debrided u
--- NOTE | 2020-11-05 08:53 | P.PNOP_ITS ---
Progress Note: A&P Assessment and Plan (1) Osteomyelitis of ankle or foot, right, acute: Code(s): M86.171 - Other acute osteomyelitis, right ankle and foot Status: Ruled-out Assessment and Plan: 6 weeks, 6 days status post right 5th ray amputation and excision of osteomyelitis. The patient presents to the [facility] today for re- evaluation of his right forefoot wound. He has been performing daily dressing changes with silver gel and covering with an ABD pad and Kerlix. Wound bed today with some new granulation tissue noted. Some slough and necrotic dry tissue noted as well with loose devitalized tissue. Debridement performed under sterile conditions to remove all devitalized tissue. Consent obtained. Procedure performed without difficulty. No postoperative complications. Patient to continue daily dressing changes with silver gel, ABD pad and cover dry. F/U 2 weeks. Reviewed proper diet with nutritional supplement at each meal as well as blood sugar control. Subjective Subjective Date/Time Seen: 11/05/20 08:53 Patient returns to [facility] outpatient wound clinic for follow-up of right foot 5th ray amputation. Performing daily dressing changes at home with help of health. Denies fever chills or any other systemic complaints. No other new problems. Exam Const: General: comfortable and no acute distress Resp: Effort & Inspection: normal respiratory effort Cardio: Rate: regular rate Rhythm: regular rhythm GI: Inspection: non-distended GI Palp: Yes Soft to palpation and No Tenderness to palpation present (GI) Skin: Wounds: wounds noted (Right Lateral Forefoot ) Other: Right lateral foot dressing removed. Mild serosanguineous drainage. Minimal erythema. Surrounding incisional wound dehiscence with necrotic cap covering which is dry. Open area over the lateral 5th ray with soft tissue sloughing, New granulation tissue noted. Neuro: Cognition (Neuro): normal cognition Speech: normal speech Other: decreased sensation RIGHT foot Extrem: Right lower extremity: lower leg (Negative Jay's Sign ) Details: no tenderness, ankle (+ankle dorsiflexion/plantarflexion ) and foot (5th ray amputation ) Details: tenderness (diffuse ) Location: of the base of the 5th metatarsal, warmth (mild ) Location: of the lateral foot Location: distally, in the mid-section and at the base of the 5th metatarsal, vascular exam (palpable ) Details: dorsalis pedis pulse present and motor-sensory exam Details: light- touch abnormal Location: in the great toe, in the 2nd digit, in the 3rd digit and in the 4th digit; not in the 5th digit (absent ) Other: Ulcer on the lateral aspect of the right foot approximately 8.5 x 7.0 x 1.0 cm. Unable to Probe to the 4th ray at this time.. Slough and devitalized tissue noted at the distal extent of the wound, debrided under sterile conditions. some new granulation tissue noted Doppler pedal pulses Psych: Mental Status: mental status grossly normal Affect: normal affect Objective Data Meds/Results Medications: Active Medications Generic Name Dose Route Start Last Admin Trade Name Freq PRN Reason Stop Dose Admin Silver Nitrate 1 applic 10/04/20 10:53 Silvergel (Elta) 45 Ml TOPICAL 01/01/21 23:59 Q72HR PRN wound care Wound Care/Dressing Products 1 patch 10/04/20 10:53 Mepilex Transfer Drsg 6x8 TOPICAL 01/01/21 23:59 QAM PRN wound care
--- NOTE | 2020-11-05 08:55 | PM.PROC ---
Procedure Note - Detailed Date of procedure: 11/05/20 Pre-op diagnosis: open amputation R foot, wound vac dressing changes Post-op diagnosis: same Procedure performed: Excisional debridement of right forefoot skin, subcu, muscle Description of procedure: informed consent given. Patient and site marked and identified. Right foot prepped with alcohol prep solution. Fifteen blade knife used to debride skin, subcutaneous tissue and muscle from the right forefoot wound which measures 8 x 7 cm. Good bleeding viable tissue noted. No exposed bone. Sterile dressing applied. Anesthesia: none Surgeon: Denys Sainz MD Estimated blood loss (mL): 1 Drains: No Packing: Yes Pathology: none sent Complications: None Condition: stable Disposition: other ( Home with home health)
--- NOTE | 2020-11-12 10:34 | PM.PNORT ---
Progress Note: A&P Assessment and Plan (1) Osteomyelitis of ankle or foot, right, acute: Code(s): M86.171 - Other acute osteomyelitis, right ankle and foot Status: Ruled-out Assessment and Plan: 7 weeks, 2 days status post right 5th ray amputation and excision of osteomyelitis. The patient presents to the [facility] today for re-evaluation of his right forefoot wound. He has been performing daily dressing changes with silver gel and covering with an ABD pad and Kerlix. Wound bed today with some new granulation tissue noted. Slough with loose devitalized tissue noted. Debridement performed under sterile conditions to remove all devitalized tissue. Consent obtained. Procedure performed without difficulty. No postoperative complications. Patient to continue daily dressing changes with silver gel, ABD pad and cover dry. Will attempt to transition to [facility], awaiting insurance authorization. F/U 1.5 weeks. Reviewed proper diet with nutritional supplement at each meal as well as blood sugar control. Subjective Subjective Date/Time Seen: 11/12/20 10:34 Patient returns to [facility] outpatient wound clinic for follow-up of right foot 5th ray amputation. Performing daily dressing changes at home with help of health. Denies fever chills or any other systemic complaints. No other new problems. Review of Systems Review of Systems: All systems reviewed & are unremarkable except as noted in HPI and below Constitutional: Constitutional: Reports fatigue and Reports weakness Cardiovascular: Cardiovascular: Denies chest pain, Reports pedal edema and Denies lightheadedness Respiratory: Respiratory: Denies cough and Denies dyspnea Gastrointestinal: Gastrointestinal: Denies nausea and Denies vomiting Genitourinary: Genitourinary: Reports no additional male genitourinary complaints Musculoskeletal: Musculoskeletal: Reports as per HPI Exam Const: General: comfortable and no acute distress Resp: Effort & Inspection: normal respiratory effort Cardio: Rate: regular rate Rhythm: regular rhythm GI: Inspection: non-distended GI Palp: Yes Soft to palpation and No Tenderness to palpation present (GI) Skin: Wounds: wounds noted (Right Lateral Forefoot ) Other: Right lateral foot dressing removed. Mild serosanguineous drainage. No erythema. See below Neuro: Cognition (Neuro): normal cognition Speech: normal speech Other: decreased sensation RIGHT foot Extrem: Right lower extremity: lower leg (Negative Jay's Sign ) Details: no tenderness, ankle (+ankle dorsiflexion/plantarflexion ) and foot (5th ray amputation ) Details: tenderness (diffuse ) Location: of the base of the 5th metatarsal, warmth (mild ) Location: of the lateral foot Location: distally, in the mid-section and at the base of the 5th metatarsal, vascular exam (palpable ) Details: dorsalis pedis pulse present and motor-sensory exam Details: light-touch abnormal Location: in the great toe, in the 2nd digit, in the 3rd digit and in the 4th digit; not in the 5th digit (absent ) Other: Ulcer on the lateral aspect of the right foot approximately 8.5 x 7.0 x 1.5 cm. Unable to probe to the 4th ray at this time. Tendon visible. Slough and devitalized tissue noted at the distal extent of the wound, debrided under sterile conditions. Some new granulation tissue noted Doppler pedal pulses Psych: Mental Status: mental status grossly normal Affect: normal affect Objective Data Meds/Results Medications: Active Medications Generic Name Dose Route Start Last Admin Trade Name Freq PRN Reason Stop Dose Admin Silver Nitrate 1 applic 10/04/20 10:53 Silvergel (Elta) 45 Ml TOPICAL 01/01/21 23:59 Q72HR PRN wound care Wound Care/Dressing Products 1 patch 10/04/20 10:53 Mepilex Transfer Drsg 6x8 TOPICAL 01/01/21 23:59 QAM PRN wound care
--- NOTE | 2020-11-12 10:40 | PM.OP ---
Procedure Note - Brief Procedure Note - Brief Date of procedure: 11/12/20 Pre-op diagnosis: open amputation R foot, wound vac dressing changes Right foot DFU Post-op diagnosis: same Procedure performed: Debridement right DFU Description of procedure: Informed consent given. Patient and site marked and identified. Right foot prepped with alcohol prep solution. Fifteen blade knife used to debride skin, subcutaneous tissue and muscle from the right forefoot wound which measures 8.5x7.0x1.5 cm. Good bleeding viable tissue noted. No exposed bone. Sterile dressing applied. Anesthesia: none Surgeon: SANJEEV Justice Estimated blood loss (mL): 0 Tourniquet time (min): 0 IV fluids (mL): 0 Urine output (mL): 0 Drains: No Packing: No Pathology: none sent Complications: No immediate complications Condition: stable Disposition: other (home )
--- NOTE | 2020-11-22 09:16 | P.PNOP_ITS ---
Progress Note: A&P Assessment and Plan (1) Osteomyelitis of ankle or foot, right, acute: Code(s): M86.171 - Other acute osteomyelitis, right ankle and foot Status: Ruled-out Assessment and Plan: 9 weeks, 2 days status post right 5th ray amputation and excision of osteomyelitis. The patient presents to the [facility] today for re- evaluation of his right forefoot wound. He has been performing daily dressing changes with silver gel and covering with an ABD pad and Kerlix. Wound bed today with some new granulation tissue noted. Less slough without loose devitalized tissue. Patient to continue daily dressing changes with santyl and silver gel, ABD pad and cover dry. discussed potential graft application if slough improves and granulation tissue in the wound. F/U 1 weeks. Reviewed proper diet with nutritional supplement at each meal as well as blood sugar control. Subjective Subjective Date/Time Seen: 11/22/20 09:16 Patient returns for orthopedic follow-up [facility] wound clinic, status post right foot 5th ray amputation complicated by wound dehiscence. Patient reports no new complaints. No pain with weight-bearing. Denies fever chills Exam Const: General: comfortable and no acute distress Resp: Effort & Inspection: normal respiratory effort Cardio: Rate: regular rate Rhythm: regular rhythm GI: Inspection: non-distended GI Palp: Yes Soft to palpation and No Tenderness to palpation present (GI) Skin: Wounds: wounds noted (Right Lateral Forefoot ) Other: Right lateral foot dressing removed. Mild serosanguineous drainage. No erythema. See below Neuro: Cognition (Neuro): normal cognition Speech: normal speech Other: decreased sensation RIGHT foot Extrem: Right lower extremity: lower leg (Negative Jay's Sign ) Details: no tenderness, ankle (+ankle dorsiflexion/plantarflexion ) and foot (5th ray amputation ) Details: tenderness (diffuse ) Location: of the base of the 5th metatarsal, warmth (mild ) Location: of the lateral foot Location: distally, in the mid-section and at the base of the 5th metatarsal, vascular exam (palpable ) Details: dorsalis pedis pulse present and motor-sensory exam Details: light- touch abnormal Location: in the great toe, in the 2nd digit, in the 3rd digit and in the 4th digit; not in the 5th digit (absent ) Other: Ulcer on the lateral aspect of the right foot approximately 8.2 x 6 x 1.2 cm. Unable to probe to the 4th ray at this time. Tendon visible. Slough and devitalized tissue noted at the distal extent of the wound, debrided under sterile conditions. Some new granulation tissue noted Doppler pedal pulses Psych: Mental Status: mental status grossly normal Affect: normal affect Objective Data Meds/Results Medications: Active Medications Generic Name Dose Route Start Last Admin Trade Name Freq PRN Reason Stop Dose Admin Collagenase 1 applic 11/22/20 09:07 Collagenase Oint 30 Gm Tube TOPICAL 02/20/21 23:59 PRN PRN Wound Care Silver Nitrate 1 applic 10/04/20 10:53 Silvergel (Elta) 45 Ml TOPICAL 01/01/21 23:59 Q72HR PRN wound care Wound Care/Dressing Products 1 patch 10/04/20 10:53 Mepilex Transfer Drsg 6x8 TOPICAL 01/01/21 23:59 QAM PRN wound care
--- NOTE | 2020-11-29 09:29 | PM.PNORT ---
Progress Note: A&P Assessment and Plan (1) Osteomyelitis of ankle or foot, right, acute: Code(s): M86.171 - Other acute osteomyelitis, right ankle and foot Status: Ruled-out Assessment and Plan: 10 weeks, 2 days status post right 5th ray amputation and excision of osteomyelitis. The patient presents to the [facility] outpatient wound Clinic today for re-evaluation of his right forefoot wound. He has been performing daily dressing changes with santyl and covering with an ABD pad and Kerlix. Wound bed today with some new granulation tissue noted. Less slough without loose devitalized tissue. slough debrided today. Patient to continue daily dressing changes with santyl and silver gel, ABD pad and cover dry. discussed potential graft application if slough improves and granulation tissue in the wound. F/U 1 weeks. Reviewed proper diet with nutritional supplement at each meal as well as blood sugar control. Discussed nonoperative and operative treatment options with the patient. Risks and benefits of each as well as alternatives were reviewed. All of the patient's questions were answered. The risks of surgery reviewed including but not limited to: Neurovascular damage, wound complication, infection, blood clot, pulmonary embolus, stroke, myocardial infarction, and anesthetic risks up to and including . Continued pain and possible dysfunction were explained. Specific risks of the procedure including later recurrence of deformity. No guarantees were offered. If hardware used, discussed risk of failure/ breakage and possible need for removal. If complications occur, the patient understands the need for further treatment, possible further surgery. Patient verbalizes understanding and wishes to proceed. PLAN: Right foot debridement of diabetic ulcer, application of graft Subjective Subjective Date/Time Seen: 11/29/20 09:29 Principal diagnosis: Right foot diabetic foot ulcer with osteomyelitis Interval history: 10 weeks status post right 5th ray amputation and debridement of foot. Patient returns to outpatient wound clinic for dressing change. Currently using Santyl. No new complaints. No fever or chills. No systemic signs of infection. Review of Systems Constitutional: Constitutional: Reports no additional constitutional complaints, Denies chills, Denies fatigue, Denies fever(s), Denies headache(s) and Denies weakness Eyes: Eyes: Denies change in vision ENT: Reports Normal hearing present and Denies headache(s) Cardiovascular: Cardiovascular: Denies chest pain and Denies dyspnea Respiratory: Respiratory: Denies cough, Denies dyspnea and Denies wheezing Gastrointestinal: Gastrointestinal: Denies constipation, Denies diarrhea, Denies nausea and Denies vomiting Genitourinary: Genitourinary: Denies hematuria, Denies dysuria and Denies urinary urgency Musculoskeletal: Musculoskeletal: Reports as per HPI, Denies numbness and Denies tingling Integumentary/Breasts: Skin/Breast: Reports as per HPI Neurologic: Reports as per HPI, Reports Normal hearing present, Denies headache(s), Denies numbness, Denies tingling and Denies weakness Psychiatric: Psychiatric: Reports no additional psychiatric complaints Endocrine: Endocrine: Reports no additional endocrine complaints and Denies fatigue Hematologic/Lymphatic: Hematologic/Lymphatic: Reports no additional hematologic/lymphatic complaints Allergic/Immunologic: Allergic/Immunologic: Reports no additional allergic/immunologic complaints and Denies wheezing Exam Const: General: comfortable and no acute distress Resp: Effort & Inspection: normal respiratory effort Cardio: Rate: regular rate Rhythm: regular rhythm GI: Inspection: non-distended GI Palp: Yes Soft to palpation and No Tenderness to palpation present (GI) Skin: Wounds: wounds noted (Right Lateral Forefoot ) Other: Right lateral foot dressing removed. Mild serosanguineous drainage.
--- NOTE | 2020-12-06 09:33 | PM.PNORT ---
Progress Note: A&P Assessment and Plan (1) Osteomyelitis of ankle or foot, right, acute: Code(s): M86.171 - Other acute osteomyelitis, right ankle and foot Status: Ruled-out Assessment and Plan: 11 weeks, 2 days status post right 5th ray amputation and excision of osteomyelitis. The patient presents to the [facility] outpatient wound Clinic today for re-evaluation of his right forefoot wound. He has been performing daily dressing changes with santyl, silver gel and covering with an ABD pad and Kerlix. Wound bed today with 100% red/pink tissue noted. Patient would benefit from graft application to expedite wound healing. Discussed nonoperative and operative treatment options with the patient. Risks and benefits of each as well as alternatives were reviewed. All of the patient's questions were answered. The risks of surgery reviewed including but not limited to: Neurovascular damage, wound complication, infection, blood clot, pulmonary embolus, stroke, myocardial infarction, and anesthetic risks up to and including . Continued pain and possible dysfunction were explained. Specific risks of the procedure including later recurrence of deformity. No guarantees were offered. If hardware used, discussed risk of failure/ breakage and possible need for removal. If complications occur, the patient understands the need for further treatment, possible further surgery. Patient verbalizes understanding and wishes to proceed. PLAN: Right foot debridement of diabetic ulcer, application of graft by Dr. Sainz on 12/12 pending negative COVID-19 testing. Review date and times of COVID-19 testing and surgical intervention planned. Patient will follow up in [facility] wound clinic on Wednesday status post surgical intervention on for cast application. Patient family verbalized understanding. Plan of care. Additional Plan We reviewed signs symptoms of infection to report to the emergency room. Reviewed importance of proper diabetic diet, proper nutrition and medication management for optimal healing. Subjective Subjective Date/Time Seen: 12/06/20 09:33 11 weeks, 2 days status post right 5th ray amputation and debridement. Patient has been performing daily dressing changes with silver gel and Santyl to the wound bed. No new complaints. He denies fever, chills, night sweats, nausea, vomiting or diarrhea. He has an increased appetite and well-maintained blood glucose levels. His has been performing daily dressing changes with good results. No new concerns however he does have stalled wound healing. Review of Systems Constitutional: Constitutional: Reports no additional constitutional complaints, Denies chills, Denies fatigue, Denies fever(s), Denies headache(s) and Denies weakness Eyes: Eyes: Denies change in vision ENT: Reports Normal hearing present and Denies headache(s) Cardiovascular: Cardiovascular: Denies chest pain and Denies dyspnea Respiratory: Respiratory: Denies cough, Denies dyspnea and Denies wheezing Gastrointestinal: Gastrointestinal: Denies constipation, Denies diarrhea, Denies nausea and Denies vomiting Genitourinary: Genitourinary: Denies hematuria, Denies dysuria and Denies urinary urgency Musculoskeletal: Musculoskeletal: Reports as per HPI, Denies numbness and Denies tingling Integumentary/Breasts: Skin/Breast: Reports as per HPI Neurologic: Reports as per HPI, Reports Normal hearing present, Denies headache(s), Denies numbness, Denies tingling and Denies weakness Psychiatric: Psychiatric: Reports no additional psychiatric complaints Endocrine: Endocrine: Reports no additional endocrine complaints and Denies fatigue Hematologic/Lymphatic: Hematologic/Lymphatic: Reports no additional hematologic/lymphatic complaints Allergic/Immunologic: Allergic/Immunologic: Reports no additional allergic/immunologic complaints and Denies wheezing Exam Const: General: comfortable and no acu
--- NOTE | 2020-12-20 09:23 | PM.PNORT ---
Progress Note: A&P Assessment and Plan (1) Diabetic foot ulcer: Qualifiers: Diabetic foot ulcer location: toe Diabetes mellitus type: type 2 Laterality: right Non-pressure ulcer stage: with necrosis of muscle Qualified Code(s): E11.621 - Type 2 diabetes mellitus with foot ulcer; L97.513 - Non-pressure chronic ulcer of other part of right foot with necrosis of muscle Code(s): E11.621 - Type 2 diabetes mellitus with foot ulcer; L97.509 - Non-pressure chronic ulcer of other part of unspecified foot with unspecified severity Status: Acute Assessment and Plan: 3 months status post right 5th ray amputation. Right diabetic foot ulcer. Eight days status post debridement application graft. Cast removed and dressing changed 4 days ago. Dressing changed today. Graft appears to be incorporating well. No signs of infection. Mepitel 1 applied. Leave this in place for 1 week. Dressing change at that time. Plan suture removal in 2 weeks from now. (2) Osteomyelitis of ankle or foot, right, acute: Code(s): M86.171 - Other acute osteomyelitis, right ankle and foot Status: Ruled-out (3) Insulin dependent type 2 diabetes mellitus: Code(s): E11.9 - Type 2 diabetes mellitus without complications; Z79.4 - intermediate manager (current) use of insulin Status: Acute Subjective Subjective Date/Time Seen: 12/20/20 09:23 patient returns for follow-up [facility] foot [facility] outpatient wound clinic. Dressing changed 4 days ago. Patient reports no interval complaint. No fever chills. Exam Const: General: comfortable and no acute distress Resp: Effort & Inspection: normal respiratory effort Cardio: Rate: regular rate Rhythm: regular rhythm GI: Inspection: non-distended GI Palp: Yes Soft to palpation and No Tenderness to palpation present (GI) Skin: Wounds: wounds noted (Right Lateral Forefoot ) Other: Right lateral foot dressing removed. Mild serosanguineous drainage. No erythema. See below Neuro: Cognition (Neuro): normal cognition Speech: normal speech Other: decreased sensation RIGHT foot Extrem: Right lower extremity: lower leg (Negative Jay's Sign ) Details: no tenderness, ankle (+ankle dorsiflexion/plantarflexion ) and foot (5th ray amputation ) Details: tenderness (diffuse ) Location: of the base of the 5th metatarsal, warmth (mild ) Location: of the lateral foot Location: distally, in the mid-section and at the base of the 5th metatarsal, vascular exam (palpable ) Details: dorsalis pedis pulse present and motor-sensory exam Details: light-touch abnormal Location: in the great toe, in the 2nd digit, in the 3rd digit and in the 4th digit; not in the 5th digit (absent ) Other: Ulcer on the lateral aspect of the right foot approximately 8.0 x 3.3 x 0.6 cm. Unable to probe to the 4th ray at this time. Unable to see tendon. no probing to bone at all. 100% red/ pink new granulation tissue in the wound bed. Graft incorporating well Doppler pedal pulses Psych: Mental Status: mental status grossly normal Affect: normal affect Objective Data Meds/Results Medications: Active Medications Generic Name Dose Route Start Last Admin Trade Name Freq PRN Reason Stop Dose Admin Collagenase 1 applic 11/22/20 09:07 Collagenase Oint 30 Gm Tube TOPICAL 02/20/21 23:59 PRN PRN Wound Care Silver Nitrate 1 applic 10/04/20 10:53 Silvergel (Elta) 45 Ml TOPICAL 01/01/21 23:59 Q72HR PRN wound care Wound Care/Dressing Products 1 patch 10/04/20 10:53 Mepilex Transfer Drsg 6x8 TOPICAL 01/01/21 23:59 QAM PRN wound care
== END 2020-12-26 23:59 | disposition home or self-care (01) ==
LOC: ANHWOC 07:28
PROVIDERS: Visit Provider Nurse Practitioner Family
DX: Z47.81 Encounter for orthopedic aftercare following surgical amputation (principal); Z89.421 Acquired absence of other right toe(s)
CPT/HCPCS: 11042; 29445; 97602; 99211; 99212; 99213; G0463

== ENCOUNTER 2021-03-11 07:24 | Outpatient (RCR) | payer BC, SELFPAY ==
[2020-12-27 00:03] VITALS: TEMP 37.7; BMI 22.4
--- NOTE | 2020-12-27 09:21 | PM.IMHP ---
H&P: HPI History of Present Illness Date/Time: 12/27/20 09:21 Chief Complaint: right foot diabetic foot ulcer with osteomyelitis Narrative: John Mendoza is a 65 year old male returns for follow-up [facility] outpatient wound clinic. Three months status post right foot 5th ray amputation for osteomyelitis. Two weeks status post debridement with graft application. Patient notes no interval problems. No fever / chills. He is done with his antibiotic regimen. Review of Systems Constitutional: Constitutional: Reports no additional constitutional complaints, Denies chills, Denies fatigue, Denies fever(s), Denies headache(s) and Denies weakness Eyes: Eyes: Denies change in vision ENT: Reports Normal hearing present and Denies headache(s) Cardiovascular: Cardiovascular: Denies chest pain and Denies dyspnea Respiratory: Respiratory: Denies cough, Denies dyspnea and Denies wheezing Gastrointestinal: Gastrointestinal: Denies constipation, Denies diarrhea, Denies nausea and Denies vomiting Genitourinary: Genitourinary: Denies hematuria, Denies dysuria and Denies urinary urgency Musculoskeletal: Musculoskeletal: Reports as per HPI, Denies numbness and Denies tingling Integumentary/Breasts: Skin/Breast: Reports as per HPI Neurologic: Reports as per HPI, Reports Normal hearing present, Denies headache(s), Denies numbness, Denies tingling and Denies weakness Psychiatric: Psychiatric: Reports no additional psychiatric complaints Endocrine: Endocrine: Reports no additional endocrine complaints and Denies fatigue Hematologic/Lymphatic: Hematologic/Lymphatic: Reports no additional hematologic/lymphatic complaints Allergic/Immunologic: Allergic/Immunologic: Reports no additional allergic/immunologic complaints and Denies wheezing PMFSH Past Medical History Medical History Chronic anemia Claustrophobia Diabetic ulcer of right foot (~08/2020) Hypernatremia Hypertension Insulin dependent type 2 diabetes mellitus Hemoglobin A1c was 12.2% in August 2020. Osteomyelitis (~08/2020) Right 5th metatarsal osteomyelitis, status post ray amputation. 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 He lives with his and they have 4 adult children and 8 grandchildren. He is a lifelong nonsmoker and denies alcohol and illicit substance use. His , Mitchell, is his surrogate decision maker and he wishes to be a full code. Smoking status: Never smoker Second hand tobacco smoke exposure: No Substance use: never Gender identity (if verbalized by the patient): Male Spiritual care concerns: No Meds Home Medications and Allergies Home Medications Medication Instructions Recorded Confirmed Type Mepilex #30 ea 09/25/20 12/16/20 Rx insulin syringe-needle U-100 [BD #100 ea 09/26/20 12/16/20 Rx Insulin Syringe] folic acid 1 mg PO DAILY #90 tablet 10/12/20 12/16/20 Rx thiamine HCl (vitamin B1) [Vitamin 100 mg PO QAM #90 tablet 10/12/20 12/16/20 Rx B-1] Tradjenta 5 mg PO DAILY 12/10/20 12/16/20 History amlodipine [Norvasc] 5 mg PO DAILY 12/10/20 12/16/20 History clopidogrel [Plavix] 75 mg PO DAILY 12/10/20 12/16/20 History metoprolol tartrate 25 mg PO DAILY 12/10/20 12/16/20 History multivitamin [Daily-Nate] 1 tablet PO DAILY 12/10/20 12/16/20 History thiamine mononitrate (vit B1) 100 mg PO DAILY 12/10/20 12/16/20 History zinc sulfate 50 mg PO DAILY 12/10/20 12/16/20 History alprazolam 0.25 mg tablet 0.25 mg PO Q8H PRN #21 tablet
--- NOTE | 2020-12-27 09:25 | PM.PROC ---
Procedure Note - Detailed Date of procedure: 12/27/20 Pre-op diagnosis: right foot diabetic ulcer. TCC changes Post-op diagnosis: same Procedure performed: Debridement right diabetic foot ulcer skin, subcutaneous tissue Description of procedure: informed consent obtained. Patient and site identified. Foot prepped with alcohol prep solution and the 15 blade knife used to debride skin and subcutaneous tissue that was nonviable to the right foot. 3 x 4 cm area debrided. Good viable tissue noted. No signs of infection. Hemostasis obtained with pressure. Sterile dressing applied. Anesthesia: none Surgeon: Denys Sainz MD Estimated blood loss (mL): 1 Drains: No Packing: Yes Pathology: none sent Complications: None Condition: stable Disposition: other ( Home in stable condition with self care.)
--- NOTE | 2021-01-03 08:53 | PM.IMHP ---
H&P: HPI History of Present Illness Date/Time: 01/03/21 08:53 returns for follow-up [facility] outpatient wound clinic. 3.5 months status post right foot 5th ray amputation for osteomyelitis. Three weeks status post debridement with graft application. Patient notes no interval problems. No fever / chills. He is done with his antibiotic regimen. Chief Complaint: Right foot osteomyelitis, diabetic foot ulcer Review of Systems Constitutional: Constitutional: Reports no additional constitutional complaints, Denies chills, Denies fatigue, Denies fever(s), Denies headache(s) and Denies weakness Eyes: Eyes: Denies change in vision ENT: Reports Normal hearing present and Denies headache(s) Cardiovascular: Cardiovascular: Denies chest pain and Denies dyspnea Respiratory: Respiratory: Denies cough, Denies dyspnea and Denies wheezing Gastrointestinal: Gastrointestinal: Denies constipation, Denies diarrhea, Denies nausea and Denies vomiting Genitourinary: Genitourinary: Denies hematuria, Denies dysuria and Denies urinary urgency Musculoskeletal: Musculoskeletal: Reports as per HPI, Denies numbness and Denies tingling Integumentary/Breasts: Skin/Breast: Reports as per HPI Neurologic: Reports as per HPI, Reports Normal hearing present, Denies headache(s), Denies numbness, Denies tingling and Denies weakness Psychiatric: Psychiatric: Reports no additional psychiatric complaints Endocrine: Endocrine: Reports no additional endocrine complaints and Denies fatigue Hematologic/Lymphatic: Hematologic/Lymphatic: Reports no additional hematologic/lymphatic complaints Allergic/Immunologic: Allergic/Immunologic: Reports no additional allergic/immunologic complaints and Denies wheezing PMFSH Past Medical History Medical History Chronic anemia Claustrophobia Diabetic ulcer of right foot (~08/2020) Hypernatremia Hypertension Insulin dependent type 2 diabetes mellitus Hemoglobin A1c was 12.2% in August 2020. Osteomyelitis (~08/2020) Right 5th metatarsal osteomyelitis, status post ray amputation. 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 He lives with his and they have 4 adult children and 8 grandchildren. He is a lifelong nonsmoker and denies alcohol and illicit substance use. His , Mitchell, is his surrogate decision maker and he wishes to be a full code. Smoking status: Never smoker Second hand tobacco smoke exposure: No Substance use: never Gender identity (if verbalized by the patient): Male Spiritual care concerns: No Meds Home Medications and Allergies Home Medications Medication Instructions Recorded Confirmed Type Mepilex #30 ea 09/25/20 12/16/20 Rx insulin syringe-needle U-100 [BD #100 ea 09/26/20 12/16/20 Rx Insulin Syringe] folic acid 1 mg PO DAILY #90 tablet 10/12/20 12/16/20 Rx thiamine HCl (vitamin B1) [Vitamin 100 mg PO QAM #90 tablet 10/12/20 12/16/20 Rx B-1] Tradjenta 5 mg PO DAILY 12/10/20 12/16/20 History amlodipine [Norvasc] 5 mg PO DAILY 12/10/20 12/16/20 History clopidogrel [Plavix] 75 mg PO DAILY 12/10/20 12/16/20 History metoprolol tartrate 25 mg PO DAILY 12/10/20 12/16/20 History multivitamin [Daily-Nate] 1 tablet PO DAILY 12/10/20 12/16/20 History thiamine mononitrate (vit B1) 100 mg PO DAILY 12/10/20 12/16/20 History zinc sulfate 50 mg PO DAILY 12/10/20 12/16/20 History alprazolam 0.25 mg tablet 0.25 mg PO Q8H PRN #21 tablet 12/13/20 12/16/20 Rx Allergies Allergy/AdvRe
--- NOTE | 2021-01-10 13:06 | PM.IMHP ---
H&P: HPI History of Present Illness Date/Time: 01/10/21 13:06 Patient is now 3 months status post right 5th ray amputation and to 4 weeks, 1 day status post right I&D and graft application of the right lateral forefoot wound. Patient is performing daily dressing changes at this time. No signs of worsening infection. No new complaints. He denies fever, chills, night sweats, nausea, vomiting or diarrhea. Chief Complaint: right lateral diabetic foot ulcer Review of Systems Constitutional: Constitutional: Reports no additional constitutional complaints, Denies chills, Denies fatigue, Denies fever(s), Denies headache(s) and Denies weakness Eyes: Eyes: Denies change in vision ENT: Reports Normal hearing present and Denies headache(s) Cardiovascular: Cardiovascular: Denies chest pain and Denies dyspnea Respiratory: Respiratory: Denies cough, Denies dyspnea and Denies wheezing Gastrointestinal: Gastrointestinal: Denies constipation, Denies diarrhea, Denies nausea and Denies vomiting Genitourinary: Genitourinary: Denies hematuria, Denies dysuria and Denies urinary urgency Musculoskeletal: Musculoskeletal: Reports as per HPI, Denies numbness and Denies tingling Integumentary/Breasts: Skin/Breast: Reports as per HPI Neurologic: Reports as per HPI, Reports Normal hearing present, Denies headache(s), Denies numbness, Denies tingling and Denies weakness Psychiatric: Psychiatric: Reports no additional psychiatric complaints Endocrine: Endocrine: Reports no additional endocrine complaints and Denies fatigue Hematologic/Lymphatic: Hematologic/Lymphatic: Reports no additional hematologic/lymphatic complaints Allergic/Immunologic: Allergic/Immunologic: Reports no additional allergic/immunologic complaints and Denies wheezing PMFSH Past Medical History Medical History Chronic anemia Claustrophobia Diabetic ulcer of right foot (~08/2020) Hypernatremia Hypertension Insulin dependent type 2 diabetes mellitus Hemoglobin A1c was 12.2% in August 2020. Osteomyelitis (~08/2020) Right 5th metatarsal osteomyelitis, status post ray amputation. 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 He lives with his and they have 4 adult children and 8 grandchildren. He is a lifelong nonsmoker and denies alcohol and illicit substance use. His , Mitchell, is his surrogate decision maker and he wishes to be a full code. Smoking status: Never smoker Second hand tobacco smoke exposure: No Substance use: never Gender identity (if verbalized by the patient): Male Spiritual care concerns: No Meds Home Medications and Allergies Home Medications Medication Instructions Recorded Confirmed Type Mepilex #30 ea 09/25/20 12/16/20 Rx insulin syringe-needle U-100 [BD #100 ea 09/26/20 12/16/20 Rx Insulin Syringe] folic acid 1 mg PO DAILY #90 tablet 10/12/20 12/16/20 Rx thiamine HCl (vitamin B1) [Vitamin 100 mg PO QAM #90 tablet 10/12/20 12/16/20 Rx B-1] Tradjenta 5 mg PO DAILY 12/10/20 12/16/20 History amlodipine [Norvasc] 5 mg PO DAILY 12/10/20 12/16/20 History clopidogrel [Plavix] 75 mg PO DAILY 12/10/20 12/16/20 History metoprolol tartrate 25 mg PO DAILY 12/10/20 12/16/20 History multivitamin [Daily-Nate] 1 tablet PO DAILY 12/10/20 12/16/20 History thiamine mononitrate (vit B1) 100 mg PO DAILY 12/10/20 12/16/20 History zinc sulfate 50 mg PO DAILY 12/10/20 12/16/20 History alprazolam 0.25 mg tablet 0.25 mg PO Q8H PRN #21 tablet 12/13/20 12/16/20 Cassie
--- NOTE | 2021-01-17 12:09 | PM.IMHP ---
H&P: HPI History of Present Illness Date/Time: 01/17/21 12:09 Chief Complaint: right foot diabetic osteomyelitis Narrative: 5 weeks status post graft application right foot. Three months status post initial excision of osteomyelitis. Patient complains of diffuse burning type pain both feet intermittently. No new problems with the right foot wound. No systemic complaints. Review of Systems Constitutional: Constitutional: Reports no additional constitutional complaints, Denies chills, Denies fatigue, Denies fever(s), Denies headache(s) and Denies weakness Eyes: Eyes: Denies change in vision ENT: Reports Normal hearing present and Denies headache(s) Cardiovascular: Cardiovascular: Denies chest pain and Denies dyspnea Respiratory: Respiratory: Denies cough, Denies dyspnea and Denies wheezing Gastrointestinal: Gastrointestinal: Denies constipation, Denies diarrhea, Denies nausea and Denies vomiting Genitourinary: Genitourinary: Denies hematuria, Denies dysuria and Denies urinary urgency Musculoskeletal: Musculoskeletal: Reports as per HPI, Denies numbness and Denies tingling Integumentary/Breasts: Skin/Breast: Reports as per HPI Neurologic: Reports as per HPI, Reports Normal hearing present, Denies headache(s), Denies numbness, Denies tingling and Denies weakness Psychiatric: Psychiatric: Reports no additional psychiatric complaints Endocrine: Endocrine: Reports no additional endocrine complaints and Denies fatigue Hematologic/Lymphatic: Hematologic/Lymphatic: Reports no additional hematologic/lymphatic complaints Allergic/Immunologic: Allergic/Immunologic: Reports no additional allergic/immunologic complaints and Denies wheezing PMFSH Past Medical History Medical History Chronic anemia Claustrophobia Diabetic ulcer of right foot (~08/2020) Hypernatremia Hypertension Insulin dependent type 2 diabetes mellitus Hemoglobin A1c was 12.2% in August 2020. Neuropathy in diabetes Osteomyelitis (~08/2020) Right 5th metatarsal osteomyelitis, status post ray amputation. 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 He lives with his and they have 4 adult children and 8 grandchildren. He is a lifelong nonsmoker and denies alcohol and illicit substance use. His , Mitchell, is his surrogate decision maker and he wishes to be a full code. Smoking status: Never smoker Second hand tobacco smoke exposure: No Substance use: never Gender identity (if verbalized by the patient): Male Spiritual care concerns: No Meds Home Medications and Allergies Home Medications Medication Instructions Recorded Confirmed Type Mepilex #30 ea 09/25/20 12/16/20 Rx insulin syringe-needle U-100 [BD #100 ea 09/26/20 12/16/20 Rx Insulin Syringe] folic acid 1 mg PO DAILY #90 tablet 10/12/20 12/16/20 Rx thiamine HCl (vitamin B1) [Vitamin 100 mg PO QAM #90 tablet 10/12/20 12/16/20 Rx B-1] Tradjenta 5 mg PO DAILY 12/10/20 12/16/20 History amlodipine [Norvasc] 5 mg PO DAILY 12/10/20 12/16/20 History clopidogrel [Plavix] 75 mg PO DAILY 12/10/20 12/16/20 History metoprolol tartrate 25 mg PO DAILY 12/10/20 12/16/20 History multivitamin [Daily-Nate] 1 tablet PO DAILY 12/10/20 12/16/20 History thiamine mononitrate (vit B1) 100 mg PO DAILY 12/10/20 12/16/20 History zinc sulfate 50 mg PO DAILY 12/10/20 12/16/20 History alprazolam 0.25 mg tablet 0.25 mg PO Q8H PRN #21 tablet 12/13/20 12/16/20 Rx gabapentin 300 mg capsule 300 mg PO DAILY #30 cap 0
--- NOTE | 2021-01-24 11:06 | PM.IMHP ---
H&P: HPI History of Present Illness Date/Time: 01/24/21 11:06 65-year-old male presents today 4 months status post excision of osteomyelitis of the 5th ray of the right foot and 6 weeks, 1 day status post graft application. Patient reports improvement in burning-type pain of both feet status post initiation of gabapentin. No new complaints. Denies fever, chills, night sweats, nausea, vomiting or diarrhea. He is maintaining dressing changes without complication. Chief Complaint: Right lateral forefoot wound. Review of Systems Constitutional: Constitutional: Reports no additional constitutional complaints, Denies chills, Denies fatigue, Denies fever(s), Denies headache(s) and Denies weakness Eyes: Eyes: Denies change in vision ENT: Reports Normal hearing present and Denies headache(s) Cardiovascular: Cardiovascular: Denies chest pain and Denies dyspnea Respiratory: Respiratory: Denies cough, Denies dyspnea and Denies wheezing Gastrointestinal: Gastrointestinal: Denies constipation, Denies diarrhea, Denies nausea and Denies vomiting Genitourinary: Genitourinary: Denies hematuria, Denies dysuria and Denies urinary urgency Musculoskeletal: Musculoskeletal: Reports as per HPI, Denies numbness and Denies tingling Integumentary/Breasts: Skin/Breast: Reports as per HPI Neurologic: Reports as per HPI, Reports Normal hearing present, Denies headache(s), Denies numbness, Denies tingling and Denies weakness Psychiatric: Psychiatric: Reports no additional psychiatric complaints Endocrine: Endocrine: Reports no additional endocrine complaints and Denies fatigue Hematologic/Lymphatic: Hematologic/Lymphatic: Reports no additional hematologic/lymphatic complaints Allergic/Immunologic: Allergic/Immunologic: Reports no additional allergic/immunologic complaints and Denies wheezing PMFSH Past Medical History Medical History Chronic anemia Claustrophobia Diabetic ulcer of right foot (~08/2020) Hypernatremia Hypertension Insulin dependent type 2 diabetes mellitus Hemoglobin A1c was 12.2% in August 2020. Neuropathy in diabetes Osteomyelitis (~08/2020) Right 5th metatarsal osteomyelitis, status post ray amputation. 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 He lives with his and they have 4 adult children and 8 grandchildren. He is a lifelong nonsmoker and denies alcohol and illicit substance use. His , Mitchell, is his surrogate decision maker and he wishes to be a full code. Smoking status: Never smoker Second hand tobacco smoke exposure: No Substance use: never Gender identity (if verbalized by the patient): Male Spiritual care concerns: No Meds Home Medications and Allergies Home Medications Medication Instructions Recorded Confirmed Type Mepilex #30 ea 09/25/20 12/16/20 Rx insulin syringe-needle U-100 [BD #100 ea 09/26/20 12/16/20 Rx Insulin Syringe] folic acid 1 mg PO DAILY #90 tablet 10/12/20 12/16/20 Rx thiamine HCl (vitamin B1) [Vitamin 100 mg PO QAM #90 tablet 10/12/20 12/16/20 Rx B-1] Tradjenta 5 mg PO DAILY 12/10/20 12/16/20 History amlodipine [Norvasc] 5 mg PO DAILY 12/10/20 12/16/20 History clopidogrel [Plavix] 75 mg PO DAILY 12/10/20 12/16/20 History metoprolol tartrate 25 mg PO DAILY 12/10/20 12/16/20 History multivitamin [Daily-Nate] 1 tablet PO DAILY 12/10/20 12/16/20 History thiamine mononitrate (vit B1) 100 mg PO DAILY 12/10/20 12/16/20 History zinc sulfate 50 mg PO DAILY 12/10/20 12/16/20 His
--- NOTE | 2021-01-31 09:19 | PM.IMHP ---
H&P: HPI History of Present Illness Date/Time: 01/31/21 09:19 follow-up [facility] outpatient wound clinic for right foot osteomyelitis and wound dehiscence. Patient with no interim complaints. Dressing changes at home with family support. Continues with postop shoe. Chief Complaint: Right foot osteomyelitis with wound dehiscence Review of Systems Constitutional: Constitutional: Reports no additional constitutional complaints, Denies chills, Denies fatigue, Denies fever(s), Denies headache(s) and Denies weakness Eyes: Eyes: Denies change in vision ENT: Reports Normal hearing present and Denies headache(s) Cardiovascular: Cardiovascular: Denies chest pain and Denies dyspnea Respiratory: Respiratory: Denies cough, Denies dyspnea and Denies wheezing Gastrointestinal: Gastrointestinal: Denies constipation, Denies diarrhea, Denies nausea and Denies vomiting Genitourinary: Genitourinary: Denies hematuria, Denies dysuria and Denies urinary urgency Musculoskeletal: Musculoskeletal: Reports as per HPI, Denies numbness and Denies tingling Integumentary/Breasts: Skin/Breast: Reports as per HPI Neurologic: Reports as per HPI, Reports Normal hearing present, Denies headache(s), Denies numbness, Denies tingling and Denies weakness Psychiatric: Psychiatric: Reports no additional psychiatric complaints Endocrine: Endocrine: Reports no additional endocrine complaints and Denies fatigue Hematologic/Lymphatic: Hematologic/Lymphatic: Reports no additional hematologic/lymphatic complaints Allergic/Immunologic: Allergic/Immunologic: Reports no additional allergic/immunologic complaints and Denies wheezing PMFSH Past Medical History Medical History Chronic anemia Claustrophobia Diabetic ulcer of right foot (~08/2020) Hypernatremia Hypertension Insulin dependent type 2 diabetes mellitus Hemoglobin A1c was 12.2% in August 2020. Neuropathy in diabetes Osteomyelitis (~08/2020) Right 5th metatarsal osteomyelitis, status post ray amputation. 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 He lives with his and they have 4 adult children and 8 grandchildren. He is a lifelong nonsmoker and denies alcohol and illicit substance use. His , Mitchell, is his surrogate decision maker and he wishes to be a full code. Smoking status: Never smoker Second hand tobacco smoke exposure: No Substance use: never Gender identity (if verbalized by the patient): Male Spiritual care concerns: No Meds Home Medications and Allergies Home Medications Medication Instructions Recorded Confirmed Type Mepilex #30 ea 09/25/20 12/16/20 Rx insulin syringe-needle U-100 [BD #100 ea 09/26/20 12/16/20 Rx Insulin Syringe] folic acid 1 mg PO DAILY #90 tablet 10/12/20 12/16/20 Rx thiamine HCl (vitamin B1) [Vitamin 100 mg PO QAM #90 tablet 10/12/20 12/16/20 Rx B-1] Tradjenta 5 mg PO DAILY 12/10/20 12/16/20 History amlodipine [Norvasc] 5 mg PO DAILY 12/10/20 12/16/20 History clopidogrel [Plavix] 75 mg PO DAILY 12/10/20 12/16/20 History metoprolol tartrate 25 mg PO DAILY 12/10/20 12/16/20 History multivitamin [Daily-Nate] 1 tablet PO DAILY 12/10/20 12/16/20 History thiamine mononitrate (vit B1) 100 mg PO DAILY 12/10/20 12/16/20 History zinc sulfate 50 mg PO DAILY 12/10/20 12/16/20 History alprazolam 0.25 mg tablet 0.25 mg PO Q8H PRN #21 tablet 12/13/20 12/16/20 Rx gabapentin 300 mg capsule 300 mg PO DAILY #30 cap 01/17/21 Rx Allergies Allergy/A
--- NOTE | 2021-02-11 10:30 | PM.IMHP ---
H&P: HPI History of Present Illness Date/Time: 02/11/21 10:30 Chief Complaint: Right lateral forefoot diabetic foot ulcer Narrative: 65-year-old male follows up today 4 months status post debridement of right diabetic foot ulcer and 8 weeks, 5 days status post graft application. He continues with daily dressing changes at home at this point. He denies fever, chills, night sweats, nausea, vomiting or diarrhea. No signs of new infection. Wound continues to show notable healing. He reports well-maintained blood glucose levels. Review of Systems Constitutional: Constitutional: Reports no additional constitutional complaints, Denies chills, Denies fatigue, Denies fever(s), Denies headache(s) and Denies weakness Eyes: Eyes: Denies change in vision ENT: Reports Normal hearing present and Denies headache(s) Cardiovascular: Cardiovascular: Denies chest pain and Denies dyspnea Respiratory: Respiratory: Denies cough, Denies dyspnea and Denies wheezing Gastrointestinal: Gastrointestinal: Denies constipation, Denies diarrhea, Denies nausea and Denies vomiting Genitourinary: Genitourinary: Denies hematuria, Denies dysuria and Denies urinary urgency Musculoskeletal: Musculoskeletal: Reports as per HPI, Denies numbness and Denies tingling Integumentary/Breasts: Skin/Breast: Reports as per HPI Neurologic: Reports as per HPI, Reports Normal hearing present, Denies headache(s), Denies numbness, Denies tingling and Denies weakness Psychiatric: Psychiatric: Reports no additional psychiatric complaints Endocrine: Endocrine: Reports no additional endocrine complaints and Denies fatigue Hematologic/Lymphatic: Hematologic/Lymphatic: Reports no additional hematologic/lymphatic complaints Allergic/Immunologic: Allergic/Immunologic: Reports no additional allergic/immunologic complaints and Denies wheezing PMFSH Past Medical History Medical History Chronic anemia Claustrophobia Diabetic ulcer of right foot (~08/2020) Hypernatremia Hypertension Insulin dependent type 2 diabetes mellitus Hemoglobin A1c was 12.2% in August 2020. Neuropathy in diabetes Osteomyelitis (~08/2020) Right 5th metatarsal osteomyelitis, status post ray amputation. 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 He lives with his and they have 4 adult children and 8 grandchildren. He is a lifelong nonsmoker and denies alcohol and illicit substance use. His , Mitchell, is his surrogate decision maker and he wishes to be a full code. Smoking status: Never smoker Second hand tobacco smoke exposure: No Substance use: never Gender identity (if verbalized by the patient): Male Spiritual care concerns: No Meds Home Medications and Allergies Home Medications Medication Instructions Recorded Confirmed Type Mepilex #30 ea 09/25/20 12/16/20 Rx insulin syringe-needle U-100 [BD #100 ea 09/26/20 12/16/20 Rx Insulin Syringe] folic acid 1 mg PO DAILY #90 tablet 10/12/20 12/16/20 Rx thiamine HCl (vitamin B1) [Vitamin 100 mg PO QAM #90 tablet 10/12/20 12/16/20 Rx B-1] Tradjenta 5 mg PO DAILY 12/10/20 12/16/20 History amlodipine [Norvasc] 5 mg PO DAILY 12/10/20 12/16/20 History clopidogrel [Plavix] 75 mg PO DAILY 12/10/20 12/16/20 History metoprolol tartrate 25 mg PO DAILY 12/10/20 12/16/20 History multivitamin [Daily-Nate] 1 tablet PO DAILY 12/10/20 12/16/20 History thiamine mononitrate (vit B1) 100 mg PO DAILY 12/10/20 12/16/20 History zinc sulfate 50 mg PO DAILY 0
--- NOTE | 2021-02-25 09:44 | PM.IMHP ---
H&P: HPI History of Present Illness Date/Time: 02/25/21 09:44 Chief Complaint: right lateral forefoot wound Narrative: 65-year-old male follows up 10 weeks, 5 days status post graft application to the right lateral diabetic foot ulcer and 5 months status post initial debridement of osteomyelitis. He is continuing daily dressing changes with silver gel and Vonda. He denies signs or symptoms of infection. He reports well-maintained blood glucose levels. Review of Systems Constitutional: Constitutional: Reports no additional constitutional complaints, Denies chills, Denies fatigue, Denies fever(s), Denies headache(s) and Denies weakness Eyes: Eyes: Denies change in vision ENT: Reports Normal hearing present and Denies headache(s) Cardiovascular: Cardiovascular: Denies chest pain and Denies dyspnea Respiratory: Respiratory: Denies cough, Denies dyspnea and Denies wheezing Gastrointestinal: Gastrointestinal: Denies constipation, Denies diarrhea, Denies nausea and Denies vomiting Genitourinary: Genitourinary: Denies hematuria, Denies dysuria and Denies urinary urgency Musculoskeletal: Musculoskeletal: Reports as per HPI, Denies numbness and Denies tingling Integumentary/Breasts: Skin/Breast: Reports as per HPI Neurologic: Reports as per HPI, Reports Normal hearing present, Denies headache(s), Denies numbness, Denies tingling and Denies weakness Psychiatric: Psychiatric: Reports no additional psychiatric complaints Endocrine: Endocrine: Reports no additional endocrine complaints and Denies fatigue Hematologic/Lymphatic: Hematologic/Lymphatic: Reports no additional hematologic/lymphatic complaints Allergic/Immunologic: Allergic/Immunologic: Reports no additional allergic/immunologic complaints and Denies wheezing PMFSH Past Medical History Medical History Chronic anemia Claustrophobia Diabetic ulcer of right foot (~08/2020) Hypernatremia Hypertension Insulin dependent type 2 diabetes mellitus Hemoglobin A1c was 12.2% in August 2020. Neuropathy in diabetes Osteomyelitis (~08/2020) Right 5th metatarsal osteomyelitis, status post ray amputation. 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 He lives with his and they have 4 adult children and 8 grandchildren. He is a lifelong nonsmoker and denies alcohol and illicit substance use. His , Mitchell, is his surrogate decision maker and he wishes to be a full code. Smoking status: Never smoker Second hand tobacco smoke exposure: No Substance use: never Gender identity (if verbalized by the patient): Male Spiritual care concerns: No Meds Home Medications and Allergies Home Medications Medication Instructions Recorded Confirmed Type Mepilex #30 ea 09/25/20 12/16/20 Rx insulin syringe-needle U-100 [BD #100 ea 09/26/20 12/16/20 Rx Insulin Syringe] folic acid 1 mg PO DAILY #90 tablet 10/12/20 12/16/20 Rx thiamine HCl (vitamin B1) [Vitamin 100 mg PO QAM #90 tablet 10/12/20 12/16/20 Rx B-1] Tradjenta 5 mg PO DAILY 12/10/20 12/16/20 History amlodipine [Norvasc] 5 mg PO DAILY 12/10/20 12/16/20 History clopidogrel [Plavix] 75 mg PO DAILY 12/10/20 12/16/20 History metoprolol tartrate 25 mg PO DAILY 12/10/20 12/16/20 History multivitamin [Daily-Nate] 1 tablet PO DAILY 12/10/20 12/16/20 History thiamine mononitrate (vit B1) 100 mg PO DAILY 12/10/20 12/16/20 History zinc sulfate 50 mg PO DAILY 12/10/20 12/16/20 History alprazolam 0.25 mg tablet 0.25 mg PO Q8H PRN #21 tab
--- NOTE | 2021-03-11 09:24 | PM.PNORT ---
Progress Note: A&P Assessment and Plan (1) Osteomyelitis of ankle or foot, right, acute: Code(s): M86.171 - Other acute osteomyelitis, right ankle and foot Status: Ruled-out Assessment and Plan: Five months status post debridement of right foot ulcer and 3 months status post graft application operating room. Patient continues to show overall improvement. Wound dimensions today notably improved from 2 weeks ago. Wound measures 1.4 x 0.6 x 0.2 cm. Surrounding callus debrided today under sterile conditions a 15. Blade knife, tolerated well. No signs of active infection. Patient to continue daily dressing changes at home with silver gel. Discontinue present at this time due to continued hypergranulation. Silver nitrate applied to the more plantar aspect of the wound due to hypergranulation. Patient to continue offloading with a postoperative shoe. Patient follow-up in 2 weeks for re-evaluation. In the interim, we will send in order for custom orthotics in depth shoes. Patient prefers the [facility] in [place]. (2) Diabetic foot ulcer: Qualifiers: Diabetic foot ulcer location: toe Diabetes mellitus type: type 2 Laterality: right Non-pressure ulcer stage: with necrosis of muscle Qualified Code(s): E11.621 - Type 2 diabetes mellitus with foot ulcer; L97.513 - Non-pressure chronic ulcer of other part of right foot with necrosis of muscle Code(s): E11.621 - Type 2 diabetes mellitus with foot ulcer; L97.509 - Non-pressure chronic ulcer of other part of unspecified foot with unspecified severity Status: Acute Assessment and Plan: (3) Insulin dependent type 2 diabetes mellitus: Code(s): E11.9 - Type 2 diabetes mellitus without complications; Z79.4 - USP (current) use of insulin Status: Acute Assessment and Plan: Discussed importance of continuation of proper nutrition and diabetic medication management for optimal healing. (4) Neuropathy in diabetes: Qualifiers: Diabetes mellitus type: type 1 Diabetes mellitus complication detail: diabetic polyneuropathy Qualified Code(s): E10.42 - Type 1 diabetes mellitus with diabetic polyneuropathy Code(s): E11.40 - Type 2 diabetes mellitus with diabetic neuropathy, unspecified Status: Acute Assessment and Plan: Marked improvement in burning-type pain to bilateral lower extremities status post initiation of gabapentin. Continue at this time. Subjective Subjective Date/Time Seen: 03/11/21 09:24 Review of Systems Constitutional: Constitutional: Reports no additional constitutional complaints, Denies chills, Denies fatigue, Denies fever(s), Denies headache(s) and Denies weakness Eyes: Eyes: Denies change in vision ENT: Reports Normal hearing present and Denies headache(s) Cardiovascular: Cardiovascular: Denies chest pain and Denies dyspnea Respiratory: Respiratory: Denies cough, Denies dyspnea and Denies wheezing Gastrointestinal: Gastrointestinal: Denies constipation, Denies diarrhea, Denies nausea and Denies vomiting Genitourinary: Genitourinary: Denies hematuria, Denies dysuria and Denies urinary urgency Musculoskeletal: Musculoskeletal: Reports as per HPI, Denies numbness and Denies tingling Integumentary/Breasts: Skin/Breast: Reports as per HPI Neurologic: Reports as per HPI, Reports Normal hearing present, Denies headache(s), Denies numbness, Denies tingling and Denies weakness Psychiatric: Psychiatric: Reports no additional psychiatric complaints Endocrine: Endocrine: Reports no additional endocrine complaints and Denies fatigue Hematologic/Lymphatic: Hematologic/Lymphatic: Reports no additional hematologic/lymphatic complaints Allergic/Immunologic: Allergic/Immunologic: Reports no additional allergic/immunologic complaints and Denies wheezing Exam Const: General: comfortable and no acute distress Resp: Effort & Inspection: normal respiratory effort Cardio:
--- NOTE | 2021-03-11 09:31 | PM.IMHP ---
H&P: HPI History of Present Illness Date/Time: 03/11/21 09:31 Chief Complaint: right lateral forefoot ulcer Narrative: 65-year-old male follows up 3 months status post graft application to the right lateral diabetic foot ulcer and 5 months status post initial debridement of osteomyelitis. He states his wound is now closed. He denies signs or symptoms of infection. He reports well-maintained blood glucose levels. Review of Systems Constitutional: Constitutional: Reports no additional constitutional complaints, Denies chills, Denies fatigue, Denies fever(s), Denies headache(s) and Denies weakness Eyes: Eyes: Denies change in vision ENT: Reports Normal hearing present and Denies headache(s) Cardiovascular: Cardiovascular: Denies chest pain and Denies dyspnea Respiratory: Respiratory: Denies cough, Denies dyspnea and Denies wheezing Gastrointestinal: Gastrointestinal: Denies constipation, Denies diarrhea, Denies nausea and Denies vomiting Genitourinary: Genitourinary: Denies hematuria, Denies dysuria and Denies urinary urgency Musculoskeletal: Musculoskeletal: Reports as per HPI, Denies numbness and Denies tingling Integumentary/Breasts: Skin/Breast: Reports as per HPI Neurologic: Reports as per HPI, Reports Normal hearing present, Denies headache(s), Denies numbness, Denies tingling and Denies weakness Psychiatric: Psychiatric: Reports no additional psychiatric complaints Endocrine: Endocrine: Reports no additional endocrine complaints and Denies fatigue Hematologic/Lymphatic: Hematologic/Lymphatic: Reports no additional hematologic/lymphatic complaints Allergic/Immunologic: Allergic/Immunologic: Reports no additional allergic/immunologic complaints and Denies wheezing PMF Past Medical History Medical History Chronic anemia Claustrophobia Diabetic ulcer of right foot (~08/2020) Hypernatremia Hypertension Insulin dependent type 2 diabetes mellitus Hemoglobin A1c was 12.2% in August 2020. Neuropathy in diabetes Osteomyelitis (~08/2020) Right 5th metatarsal osteomyelitis, status post ray amputation. 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 He lives with his and they have 4 adult children and 8 grandchildren. He is a lifelong nonsmoker and denies alcohol and illicit substance use. His , Mitchell, is his surrogate decision maker and he wishes to be a full code. Smoking status: Never smoker Second hand tobacco smoke exposure: No Substance use: never Gender identity (if verbalized by the patient): Male Spiritual care concerns: No Meds Home Medications and Allergies Home Medications Medication Instructions Recorded Confirmed Type Mepilex #30 ea 09/25/20 12/16/20 Rx insulin syringe-needle U-100 [BD #100 ea 09/26/20 12/16/20 Rx Insulin Syringe] folic acid 1 mg PO DAILY #90 tablet 10/12/20 12/16/20 Rx thiamine HCl (vitamin B1) [Vitamin 100 mg PO QAM #90 tablet 10/12/20 12/16/20 Rx B-1] Tradjenta 5 mg PO DAILY 12/10/20 12/16/20 History amlodipine [Norvasc] 5 mg PO DAILY 12/10/20 12/16/20 History clopidogrel [Plavix] 75 mg PO DAILY 12/10/20 12/16/20 History metoprolol tartrate 25 mg PO DAILY 12/10/20 12/16/20 History multivitamin [Daily-Nate] 1 tablet PO DAILY 12/10/20 12/16/20 History thiamine mononitrate (vit B1) 100 mg PO DAILY 12/10/20 12/16/20 History zinc sulfate 50 mg PO DAILY 12/10/20 12/16/20 History gabapentin 300 mg capsule 300 mg PO DAILY #30 cap 02/25/21 Rx Allergies Allergy/AdvRe
== END 2021-03-27 23:59 | disposition home or self-care (01) ==
LOC: ANHWOC 07:24
PROVIDERS: PCP Internal Medicine; Visit Provider Nurse Practitioner Family
DX: Z47.81 Encounter for orthopedic aftercare following surgical amputation (principal); Z89.421 Acquired absence of other right toe(s)
CPT/HCPCS: 11042; 99212; 99213; G0463